=== PATIENT | male | born 1965 | race Caucasian/White ===

== ENCOUNTER 2020-10-25 14:07 | Emergency (ER) | payer OTHER, SELFPAY ==
--- NOTE | ~2020-10-25 | XR_ITS ---
EXAMINATION: XR chest 1V portable DATE: 10/25/2020 16:49 INDICATION: Weakness TECHNIQUE: frontal view of the chest was obtained. COMPARISON: Chest radiograph dated 03/17/2014 FINDINGS: Hyperexpansion of the lungs no focal airspace opacities, pulmonary edema, pleural effusion or pneumot horax. The cardiomediastinal silhouette is normal. Mild thoracic dextrocurvature with mild spondylosi s. IMPRESSION: 1. Chronic hyperexpansion of lungs. No acute cardiopulmonary disease. Reviewed, dictated and finalized at location A.
[2020-10-25 14:27] VITALS: BP 98/70; PULSE 98; RESP 16; TEMP 37; O2SAT 100
--- NOTE | 2020-10-25 15:53 | ED.GENADULT ---
HPI - General Adult General Chief complaint: Unspecified <Dion Starr MD - Last Filed: 11/02/20 02:04> Stated complaint: WEAKNESS <Dion Starr MD - Last Filed: 11/02/20 02:04> Time Seen by Provider: 10/25/20 14:11 <Dion Starr MD - Last Filed: 11/02/20 02:04> History of Present Illness HPI narrative: Patient is a 55-year-old male who presents ER with bedbugs. Patient's sister called for a wellness check on him and his parents since his mom was admitted recently and also covered in bedbugs. They made the request that he be transferred to the ER. Patient is alert and oriented x3. He has no complaints of pain. He is aware that there iare some bedbugs. He is very thin but denies any recent weight loss. <Dion Starr MD - Last Filed: 11/02/20 02:04> Related Data Allergies/adverse reactions: Allergies Allergy/AdvReac Type Severity Reaction Status Date / Time Penicillins Allergy Unknown Verified 07/17/16 08:37 <Dion Starr MD - Last Filed: 11/02/20 02:04> Review of Systems Review of Systems: All systems reviewed & are unremarkable except as noted in HPI and below <Dion Starr MD - Last Filed: 11/02/20 02:04> Constitutional: Constitutional: Reports anorexia, Denies chills and Denies fever(s) <Dion Starr MD - Last Filed: 11/02/20 02:04> Cardiovascular: Cardiovascular: Denies chest pain, Denies diaphoresis, Denies rapid heart rate and Denies radiating jaw, neck or arm pain <Dion Starr MD - Last Filed: 11/02/20 02:04> Respiratory: Respiratory: Denies chest congestion, Denies cough and Denies dyspnea <Dion Starr MD - Last Filed: 11/02/20 02:04> Gastrointestinal: Gastrointestinal: Denies abdominal pain, Denies diarrhea, Denies nausea and Denies vomiting <Dion Starr MD - Last Filed: 11/02/20 02:04> Integumentary/Breasts: Skin/Breast: Denies erythema and Denies rash <Dion Starr MD - Last Filed: 11/02/20 02:04> Comments: Itching and bug bites. <Dion Starr MD - Last Filed: 11/02/20 02:04> [facility] Past Medical History Medical History: Medical History (Updated 10/26/20 @ 00:00 by Background Gabriel) Anxiety Hemorrhoids Seizure disorder <Dion Starr MD - Last Filed: 11/02/20 02:04> Surgical History Surgical History: Surgical History (Updated 10/25/20 @ 16:16 by Dion Starr MD) History of cholecystectomy <Dion Starr MD - Last Filed: 11/02/20 02:04> Social History Social History: Social History Smoking status: Former smoker Smoking end date: 03/19/15 Alcohol intake: current <Dion Starr MD - Last Filed: 11/02/20 02:04> Exam Narrative: GENERAL: Chronically ill-appearing and underweight, no acute distress. HEAD: Normocephalic, atraumatic. EYES: PERRL and EOMI. ENT: Mucous membranes moist. CHEST: Clear to auscultation. No respiratory distress. HEART: Regular rate and rhythm. Normal peripheral pulses. ABDOMEN: Soft, nontender, nondistended. EXTREMITIES: Normal range of motion. No edema. SKIN: Warm, dry, no rash. NEURO: Alert and oriented x3. <Dion Starr MD - Last Filed: 11/02/20 02:04> Course Reevaluation(s) Reevaluation #1: Currently patient is asymptomatic and would like to go home. his ride waiting for him. <Pal Finn MD - Last Filed: 10/25/20 18:39> Date: 10/25/20 <Pal Finn MD - Last Filed: 10/25/20 18:39> Time: 18:35 <Pal Finn MD - Last Filed: 10/25/20 18:39> Vital Signs Vital signs: Vital Signs Temperature 98.6 F 10/25/20 14:27 Pulse Rate 98 10/25/20 14:27 Respiratory Rate 16 10/25/20 14:27 Blood Pressure 98/70 L 10/25/20 14:27 Pulse Oximetry 100 10/25/20 14:27 Temperature 98.6 F 10/25/20 14:27 Pulse Rate 92 10/25/20 18:46 Respiratory Rate 18 10/25/20 18:46 Blood Pressure 107/72 10/25/20 18:46 Pulse Oximetry 100 10/25/20 18:46 <Ernie
[2020-10-25 16:17] VITALS: BP 105/76; PULSE 89; O2SAT 100
[2020-10-25 17:07] LABS: Basophils Percent Auto 1.5 % (0.2-1.2); Eosinophils Absolute Auto 0.3 K/mm3 (0-0.3); Eosinophils Percent Auto 9.4 % (0-4.4); Hematocrit 40.5 % (42.0-52.0); Hemoglobin 13.5 g/dL (14.0-18.0); Immature Granulocyte Absolute 0.01 K/mm3 (0.00-0.031); Immature Granulocyte Percent A 0.4 % (0-0.5); Lymphocytes Absolute Auto 1.03 K/mm3 (0.9-3.2); Lymphocytes Percent Auto 38.6 % (18.3-44.2); Mean Corpuscular HGB Conc 33.3 g/dl (32-36); Mean Corpuscular Hemoglobin 30.8 pg (26-34); Mean Corpuscular Volume 92.5 fl (80-100); Monocytes Absolute Auto 0.4 K/mm3 (0.1-0.6); Monocytes Percent Auto 13.1 % (2.6-8.5); Platelet Count Result 290 k/mm3 (150-375); Red Blood Count 4.38 M/mm3 (4.6-6.20); Red Cell Distribution Width 13.3 % (11.5-14.5); White Blood Count 2.7 K/mm3 (4.5-10.0)
[2020-10-25 17:21] LABS: Alanine Aminotransferase 9 U/L (4-50); Albumin Level 4.7 g/dL (3.5-5.1); Alkaline Phosphatase 69 U/L (38-126); Anion Gap 11 mmol/L (8-16); Aspartate Amino Transferase 24 U/L (17-59); Bilirubin,Total 0.1 mg/dL (0.2-1.3); Blood Urea Nitrogen 12 mg/dL (9-20); Calcium 9.5 mg/dL (8.4-10.2); Carbon Dioxide 26 mmol/L (22-30); Chloride 100 mmol/L (98-107); Estimated CRCL calculation 48 ml/min; Estimated Glomerular Filt Rate > 60; Glucose 83 mg/dL (65-110); Potassium 3.7 mmol/L (3.4-5.0); Sodium 137 mmol/L (137-145)
[2020-10-25 17:59] LABS: Add Urine Microscopic? YES; Appearance Urine Clear (Clear); Bilirubin Urine Negative (Negative); Blood Urine Negative (Negative); Color Urine Yellow (Yellow); Glucose Urine UA Negative (Negative); Ketones Urine Trace mg/dL (Negative); Leukocyte Esterase Ur Negative LEU/UL (Negative); Mucus Urine Heavy /lpf; Nitrate Urine Negative (Negative); Protein Urine 1+ mg/dL (Negative); RBC Urine 0-2 /hpf (0-2); Urobilinogen Urine Negative mg/dL (<2.0); WBC Urine 0-3 /hpf
[2020-10-25 18:46] VITALS: BP 107/72; PULSE 92; RESP 18; O2SAT 100
== END 2020-10-25 18:47 | disposition home or self-care (01) ==
PROVIDERS: Emergency Medicine; Emergency Provider Emergency Medicine; PCP Internal Medicine Infectious Disease
DX: B88.8 Other specified infestations (principal); E46 Unspecified protein-calorie malnutrition; D72.819 Decreased white blood cell count, unspecified; Z87.891 Personal history of nicotine dependence
CPT/HCPCS: 36415; 71045; 80053; 81001; 85025; 99283

== ENCOUNTER 2021-02-18 13:21 | Emergency (ER) | payer OTHER, SELFPAY ==
--- NOTE | ~2021-02-18 | CT_ITS ---
EXAMINATION: CT abdomen pelvis w con DATE: 02/18/2021 18:00 INDICATION: Abdomen pain TECHNIQUE: Computed tomography (CT) of the abdomen and pelvis was performed with 91 cc Omnipaque 350 intravenous contrast. The dose-length product was 155.03 mGy-cm. Automated exposure control and itera tive reconstruction technique were employed. COMPARISON: CT dated 05/23/2018. FINDINGS: Lung bases unremarkable. Heart size normal. No significant pleural or pericardial effusion. There is a small low-density lesion in the right hepatic lobe, most likely benign cysts. Small hiata l hernia with thickening of the distal esophagus. There is moderate gas and fluid throughout the smal l bowel, suspicious for enteritis or ileus. Colonic diverticulosis without evidence for diverticuliti s. No free air or free fluid. The spleen, pancreas, right adrenal gland and kidneys are unremarkable. There is a low-density 2 cm l eft adrenal mass, likely benign adenoma. No significant vascular abnormality. No lymphadenopathy. No free air or free fluid. Mild lumbar spondylosis. Symmetric degenerative changes of the hips. Mild lev ocurvature of the lumbar spine. IMPRESSION: 1. Moderate gas and fluid throughout the small bowel without transition point, most likely secondary to enteritis or ileus. 2: Small hiatal hernia with thickening of the distal esophagus, suspicious for esophagitis. Reviewed, dictated and finalized at location A. [employer]
[2021-02-18 13:24] VITALS: BP 119/82; PULSE 113; RESP 20; TEMP 36.6; O2SAT 99
[2021-02-18 15:25] VITALS: BP 107/79; PULSE 103; RESP 16; TEMP 36.4; O2SAT 99
[2021-02-18 16:57] VITALS: BP 105/77; PULSE 93; RESP 18; O2SAT 100
[2021-02-18 17:01] LABS: Basophils Absolute Auto 0.1 K/mm3 (0.0-0.1); Basophils Percent Auto 1.3 % (0.2-1.2); Eosinophils Absolute Auto 0.1 K/mm3 (0-0.3); Eosinophils Percent Auto 0.9 % (0-4.4); Hematocrit 41.2 % (42.0-52.0); Hemoglobin 14.1 g/dL (14.0-18.0); Immature Granulocyte Absolute 0.01 K/mm3 (0.00-0.031); Immature Granulocyte Percent A 0.2 % (0-0.5); Lymphocytes Absolute Auto 1.71 K/mm3 (0.9-3.2); Mean Corpuscular HGB Conc 34.2 g/dl (32-36); Mean Corpuscular Hemoglobin 30.7 pg (26-34); Mean Corpuscular Volume 89.6 fl (80-100); Mean Platelet Volume 7.6 fl (7.4-10.4); Monocytes Absolute Auto 0.4 K/mm3 (0.1-0.6); Neutrophils Absolute Auto 3.2 K/mm3 (1.3-6.7); Neutrophils Percent Auto 58.6 % (45.5-73.1); Platelet Count Result 381 k/mm3 (150-375); Red Cell Distribution Width 14.7 % (11.5-14.5); White Blood Count 5.5 K/mm3 (4.5-10.0)
[2021-02-18] MEDS: SODIUM CHLORIDE 0.9% IV 1,000 ML 999 ML IV CONT (17:09)
[2021-02-18 17:18] LABS: Alanine Aminotransferase 11 U/L (4-50); Albumin Level 4.4 g/dL (3.5-5.1); Alkaline Phosphatase 49 U/L (38-126); Anion Gap 10 mmol/L (8-16); Aspartate Amino Transferase 22 U/L (17-59); Bilirubin,Total 0.5 mg/dL (0.2-1.3); Blood Urea Nitrogen 12 mg/dL (9-20); Calcium 9.2 mg/dL (8.4-10.2); Carbon Dioxide 25 mmol/L (22-30); Chloride 101 mmol/L (98-107); Estimated CRCL calculation 59 ml/min; Estimated Glomerular Filt Rate > 60; Glucose 98 mg/dL (65-110); Lipase 91 U/L (23-300); Potassium 3.9 mmol/L (3.4-5.0); Sodium 136 mmol/L (137-145)
--- NOTE | 2021-02-18 17:38 | ED.ABDPAIN ---
HPI - Abdominal Pain General Chief Complaint: Abdominal Pain Stated Complaint: sob x 2 days Time Seen by Provider: 02/18/21 16:34 Source: patient and RN notes reviewed Mode of arrival: ambulatory History of Present Illness HPI narrative: Patient is 55 years old white male came to the emergency room by private car, he lives with his mother and brother, does not work, is not disabled, complaining of pain of the feet, legs, hips, kidneys, bladder, stomach, groin area and lungs for years. No family physician. Patient take Tylenol as needed for pain. Patient is a smoker, does not drink or uses drugs, is fully vaccinated for COVID-19 Related Data Home Medications Medication Instructions Recorded Confirmed acetaminophen [Tylenol] 325 mg PO ONCE PRN 02/18/21 02/18/21 albuterol sulfate 90 mcg INHALATION PRN 02/18/21 02/18/21 dicyclomine 20 mg PO PRN 02/18/21 02/18/21 Allergies Allergy/AdvReac Type Severity Reaction Status Date / Time Penicillins Allergy Unknown Unknown Verified 02/18/21 17:00 Review of Systems Review of Systems: CONSTITUTIONAL: Denies fever, chills, or sweats. EYES: Denies visual changes, redness, or discharge. ENT: Denies rhinorrhea, congestion, sore throat, or otalgia. CARDIOVASCULAR: Denies chest pain, palpitations, or edema. RESPIRATORY: Denies cough or dyspnea. GASTROINTESTINAL: Denies abdominal pain, nausea, vomiting, or diarrhea. GENITOURINARY: Denies dysuria or hematuria. SKIN: Denies rash or itching. MUSCULOSKELETAL: Aches and pain all over NEUROLOGIC: Denies headache, numbness, or weakness. PSYCHIATRIC: Depression PMFSH Past Medical History Medical History Anxiety Hemorrhoids Seizure disorder Surgical History Surgical History History of cholecystectomy Social History Social History Smoking status: Former smoker Smoking end date: 03/19/15 Alcohol intake: current Exam Narrative: General appearance: Well-developed, malnourished Skin: Eczematous changes of the forearms bilaterally Head: Normocephalic, nontraumatic Eyes: Clear conjunctiva ENT: Oropharynx normal, ears normal, nose normal Neck: Supple, nontender Chest and respiratory: Airway patent, no respiratory distress, no accessory muscle use Heart: Regular rate/rhythm Abdomen: Diffuse tenderness, guarding, quiet bowel sounds Vascular: Normal peripheral pulses, normal capillary refill. 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 Labs, CT abdomen pelvis with IV contrast, IV fluid.. Differential Diagnosis Differential diagnosis: Likely abdominal pain, acute appendicitis, calculus of kidney, constipation, diverticulitis, pancreatitis and other (Depression, electrolyte imbalance,) Lab Data Result diagrams: 02/18/21 16:55 02/18/21 16:56 Labs: Lab Results 02/18/21 02/18/21 02/18/21 Dm
[2021-02-18 17:49] LABS: Add Urine Microscopic? YES; Appearance Urine Clear (Clear); Bilirubin Urine 1+ (Negative); Blood Urine 1+ (Negative); Color Urine Amber (Yellow); Glucose Urine UA Negative (Negative); Ketones Urine Trace mg/dL (Negative); Leukocyte Esterase Ur Negative LEU/UL (Negative); Mucus Urine Heavy /lpf; Nitrate Urine Negative (Negative); Protein Urine 1+ mg/dL (Negative); RBC Urine 21-50 /hpf (0-2); WBC Urine 0-3 /hpf
[2021-02-18 17:57] LABS: Specific Grav Ur 1.045 (1.001-1.035)
[2021-02-18 18:57] VITALS: BP 112/69; PULSE 92; RESP 18; O2SAT 100
== END 2021-02-18 19:00 | disposition home or self-care (01) ==
PROVIDERS: Emergency Provider Emergency Medicine; PCP Internal Medicine
DX: R52 Pain, unspecified (principal); K20.90 Esophagitis, unspecified without bleeding; K52.9 Noninfective gastroenteritis and colitis, unspecified; F41.9 Anxiety disorder, unspecified; G40.909 Epilepsy, unspecified, not intractable, without status epilepticus; E46 Unspecified protein-calorie malnutrition; Z68.1 Body mass index [BMI] 19.9 or less, adult; Z87.891 Personal history of nicotine dependence; Z79.899 Other long term (current) drug therapy; Z88.0 Allergy status to penicillin
CPT/HCPCS: 36415; 51701; 74177; 80053; 81001; 83690; 85025; 96360; 99284; J7030; Q9967

== ENCOUNTER 2022-12-21 10:10 | Emergency (ER) | payer OTHER, SELFPAY ==
[2022-12-21] VITALS (13 sets, daily range): BP systolic 116–121; BP diastolic 80–88; PULSE 62–79; RESP 11–25; TEMP 36.7; O2SAT 97–99
--- NOTE | ~2022-12-21 | US_ITS ---
EXAMINATION: US right upper quadrant DATE: 12/21/2022 14:20 INDICATION: Abdominal pain TECHNIQUE: Multiple grayscale and Doppler ultrasound images of the abdomen were obtained. COMPARISON: CT dated 12/21/2022 FINDINGS: Main pancreatic duct is diffusely dilated measuring 4.5 cm diameter at the body of the pancreas. Panc reas is otherwise normal in appearance. Liver has normal echogenicity and contour, with a smooth surf pavel. No liver lesion identified. Diffuse mild intrahepatic third ductal dilation. Portal venous flow was seen in the hepatopetal, normal direction and has normal Doppler waveform. The common bile duct i s also dilated to 8 mm. There is tapering of the distal common bile duct however the region of the am emiliano is obscured by shadowing bowel gas. No evident choledocholithiasis. Status post cholecystectomy with surgical clips seen at the gallbladder fossa on the prior CT. Visualized proximal to mid inferi or vena cava is normal. IMPRESSION: 1. Status post cholecystectomy with mild intra and extra hepatic ductal or ductal dilation and mild d ilation of the main pancreatic duct with no evident choledocholithiasis. Reviewed, dictated and finalized at location A. IMPRESSION: 1. Status post cholecystectomy with mild intra and extra hepatic ductal or duct al dilation and mild dilation of the main pancreatic duct with no evident haider docholithiasis.
--- NOTE | ~2022-12-21 | CT_ITS ---
EXAMINATION: CT abdomen pelvis w con DATE: 12/21/2022 11:44 INDICATION: Right lower quadrant abdominal pain and suprapubic pain. TECHNIQUE: Computed tomography (CT) of the abdomen and pelvis was performed with 100 mL Omnipaque-350 intravenous contrast. Automated exposure control and iterative reconstruction technique were employe d. The dose-length product was 197.98 mGy-cm. COMPARISON: 02/18/2021 and 12/11/2014 FINDINGS: Mild dependent atelectasis in bilateral lower lobes. Heart size is normal. No pericardial or pleural effusion. Small sliding-type hiatal hernia. 6 mm cyst in the right hepatic lobe. 11 mm more ill-defin ed hypodense/hypoenhancing lesion in the left hepatic lobe, unchanged since 12/11/2014 at which time i t demonstrated small amount of peripheral puddling of contrast most consistent with a hemangioma. The re is mild intra and extrahepatic biliary ductal dilation and dilation of the main pancreatic duct wh ich may be related to prior cholecystectomy with surgical clips at the gallbladder fossa but which is new since the prior study. No evident obstructing stone or mass identified. Pancreas otherwise flakita l in appearance. Spleen and bilateral adrenal glands are normal. 2.0 cm left adrenal nodule and 1.0 c m right adrenal nodule which are unchanged since 2014 and with signal dropout on opposed phase images on MRI dated 12/31/2018 consistent with adenomas. Bladder is normal. Scattered colonic diverticulosi s without adjacent inflammatory change to suggest diverticulitis. No bowel obstruction. No free intra peritoneal gas or fluid. No pathologically enlarged abdominal or pelvic lymphadenopathy. Incidental n ormal variant retroaortic left renal vein. Unilateral left L5 pars interarticularis defect. Severe fa cet osteoarthritis on the right at L5-S1. Additional mild scattered degenerative skeletal changes in the pelvis and visualized spine. IMPRESSION: 1. New mild intra and extra hepatic ductal or ductal dilation as well as mild dilation of the main pa ncreatic duct without evident obstructing stone or mass and which could be related to prior cholecyst ectomy. Given however the interval change would correlate with liver function tests and could conside r further evaluation with MRCP as clinically indicated. 2. Small sliding-type hiatal hernia. Reviewed, dictated and finalized at location A. IMPRESSION: 1. New mild intra and extra hepatic ductal or ductal dilation as well as mild d ilation of the main pancreatic duct without evident obstructing stone or mass a nd which could be related to prior cholecystectomy. Given however the interval change would correlate with liver function tests and could consider further soraya luation with MRCP as clinically indicated. 2. Small sliding-type hiatal hernia.
--- NOTE | ~2022-12-21 | XR_ITS ---
EXAMINATION: XR chest 1V portable INDICATION: Cough TECHNIQUE: Portable AP chest at 1120 hours COMPARISON: 10/25/2020 FINDINGS: The lungs are free of acute opacities. No pleural effusion or pneumothorax. The cardiomedia stinal silhouette is normal. IMPRESSION: 1. No acute cardiopulmonary abnormality. Reviewed, dictated and finalized at location A.
--- NOTE | 2022-12-21 10:16 | ECG_ITS ---
Measurements Intervals [place] Rate: 74 P: 73 OR: 124 QRS: 77 QRSD: 89 T: 72 QT: 379 QTc: 422 Interpretive Statements SINUS RHYTHM NONSPECIFIC T-WAVE ABNORMALITY NO PREVIOUS ECG AVAILABLE FOR COMPARISON Electronically Signed On 12-21-2022 12:47:16 CDT by Ольга Vigil M.D.
[2022-12-21 10:34] LABS: Basophils Absolute Auto 0.1 K/mm3 (0.0-0.1); Basophils Percent Auto 1.9 % (0.2-1.2); Eosinophils Absolute Auto 0.2 K/mm3 (0-0.3); Eosinophils Percent Auto 3.7 % (0-4.4); Hematocrit 42.1 % (42.0-52.0); Hemoglobin 13.1 g/dL (14.0-18.0); Immature Granulocyte Absolute 0.02 K/mm3 (0.00-0.031); Immature Granulocyte Percent A 0.4 % (0-0.5); Lymphocytes Absolute Auto 1.46 K/mm3 (0.9-3.2); Lymphocytes Percent Auto 28.1 % (18.3-44.2); Mean Corpuscular HGB Conc 31.1 g/dl (32-36); Mean Corpuscular Volume 93.1 fl (80-100); Mean Platelet Volume 8.5 fl (7.4-10.4); Monocytes Absolute Auto 0.5 K/mm3 (0.1-0.6); Monocytes Percent Auto 9.4 % (2.6-8.5); Neutrophils Absolute Auto 2.9 K/mm3 (1.3-6.7); Neutrophils Percent Auto 56.5 % (45.5-73.1); Platelet Count Result 265 k/mm3 (150-375); Red Blood Count 4.52 M/mm3 (4.6-6.20); Red Cell Distribution Width 14.8 % (11.5-14.5); White Blood Count 5.2 K/mm3 (4.5-10.0)
[2022-12-21 10:41] LABS: Appearance Urine Cloudy (Clear); Bacteria Urine None Seen /hpf; Bilirubin Urine Negative (Negative); Blood Urine Negative (Negative); Color Urine Yellow (Yellow); Glucose Urine UA Negative (Negative); Ketones Urine Negative (Negative); Leukocyte Esterase Ur Negative LEU/UL (Negative); Nitrate Urine Negative (Negative); Non Pathogenic Casts 0-2; Protein Urine Negative (Negative); RBC Urine 0-2 /hpf (0-2); Specific Grav Ur 1.012 (1.001-1.035); Squamous Epithelial Cell Urine None seen /hpf (Few); Urobilinogen Urine 0.2 mg/dL (<2.0); WBC Urine 0-5 /hpf; pH Urine 7.5 (5.0-9.0)
[2022-12-21 10:44] LABS: Add Urine Microscopic? YES
[2022-12-21 10:44] LABS: Alanine Aminotransferase 11 U/L (6-50); Albumin Level 3.9 g/dL (3.5-5.1); Alkaline Phosphatase 56 U/L (38-126); Anion Gap 4 mmol/L (8-16); Aspartate Amino Transferase 19 U/L (17-59); Bilirubin,Total 0.4 mg/dL (0.2-1.3); Blood Urea Nitrogen 8 mg/dL (9-20); Calcium 8.7 mg/dL (8.4-10.2); Carbon Dioxide 31 mmol/L (22-30); Chloride 103 mmol/L (98-107); Estimated CRCL calculation 53 ml/min; Estimated Glomerular Filt Rate > 60; Glucose 123 mg/dL (65-110); Lipase 87 U/L (23-300); Potassium 4.1 mmol/L (3.4-5.0); Sodium 138 mmol/L (137-145)
--- NOTE | 2022-12-21 11:15 | ED.ABDPAIN ---
HPI - Abdominal Pain General Chief Complaint: Abdominal Pain <REYNALDO Calderón Last Filed: 12/21/22 16:13> Stated Complaint: abd pain <REYNALDO Calderón Last Filed: 12/21/22 16:13> Time Seen by Provider: 12/21/22 10:29 <REYNALDO Calderón Last Filed: 12/21/22 16:13> History of Present Illness HPI narrative: 57-year-old male with a history of cholecystectomy reports for evaluation for right-sided lower quadrant abdominal pain and flank pain for a couple weeks. Patient currently lives at [facility]. He describes the pain as a dull achy pain with associated nausea and gagging , he denies emesis. He had a bowel movement last night that was normal, however is reporting intermittent soft stools since the onset of symptoms. He denies melena or hematochezia. He does report an intermittent nonproductive cough, body aches and chills as well. He denies chest pain or shortness of breath, congestion, sore throat, dysuria, melena, hematochezia, coffee ground emesis, hemoptysis. He does report urinary frequency and urgency since the onset of symptoms. States he believes the retirement said he had a fever this morning. <REYNALDO Calderón Last Filed: 12/21/22 16:13> Related Data Home Medications: Home Medications Medication Instructions Recorded Confirmed acetaminophen 325 mg capsule 325 mg PO ONCE PRN Pain 02/18/21 02/18/21 (Tylenol) albuterol sulfate 90 mcg/actuation 90 mcg inhalation PRN wheezing 02/18/21 02/18/21 aerosol inhaler dicyclomine 20 mg tablet 20 mg PO PRN stomach cramps 02/18/21 02/18/21 <REYNALDO Calderón Last Filed: 12/21/22 16:13> Allergies/Adverse Reactions: Allergies Allergy/AdvReac Type Severity Reaction Status Date / Time Penicillins Allergy Unknown Unknown Verified 02/18/21 17:00 <REYNALDO Calderón Last Filed: 12/21/22 16:13> Review of Systems Review of Systems: CONSTITUTIONAL: See HPI EYES: Denies visual changes, redness, or discharge. ENT: Denies rhinorrhea, congestion, sore throat, or otalgia. CARDIOVASCULAR: Denies chest pain, palpitations, or edema. RESPIRATORY: See HPI GASTROINTESTINAL: See HPI GENITOURINARY: Denies dysuria or hematuria. SKIN: Denies rash or itching. MUSCULOSKELETAL: See HPI NEUROLOGIC: Denies headache, numbness, dizziness, or weakness. PSYCHIATRIC: Denies anxiety or depression. <Magdalena Barker PA-C - Last Filed: 12/21/22 16:13> [facility] Past Medical History Medical History: Medical History Anxiety Hemorrhoids Seizure disorder <Magdalena Barker PA-C - Last Filed: 12/21/22 16:13> Surgical History Surgical History: Surgical History History of cholecystectomy <Magdalena Barker PA-C - Last Filed: 12/21/22 16:13> Social History Social History: Social History Smoking status: Former smoker Smoking end date: 03/19/15 Alcohol intake: current <Magdalena Barker PA-C - Last Filed: 12/21/22 16:13> Exam Narrative: GENERAL: Well-appearing, thin, in no acute distress. Patient resting comfortably in exam bed. He is pleasant and conversational. HEAD: Normocephalic EYES: PERRLA ENT: Nares clear. Mucous membranes moist. Oropharynx without tonsillar hypertrophy exudate or other lesions. Edentulous NECK: Supple. CHEST: No respiratory distress. Clear to auscultation, no adventitious breath sounds. HEART: Regular rate and rhythm. No murmur heard. Normal peripheral pulses. ABDOMEN: Soft, normal active bowel sounds. Tenderness in the left upper quadrant, right lower quadrant and suprapubic region with voluntary guarding. No rebound or rigidity. Negative Geller's. Right CVA tenderness. No overlying skin changes. : No scrotal edema, penile or scrotal lesions. No crepitus in the perineu
[2022-12-21] MEDS: ONDANSETRON INJ 4 MG/2 ML VIAL IV PUSH ×2 (11:16→13:41)
[2022-12-21] MEDS: SODIUM CHLORIDE 0.9% IV 1,000 ML 999 ML IV CONT (11:16)
[2022-12-21 12:45] LABS: Influenza A QL RT-PCR Negative (Negative); Influenza B QL RT-PCR Negative (Negative); SARS-CoV-2 RNA PCR Negative (Negative)
[2022-12-21] MEDS: KETOROLAC 30 MG/ML VIAL (*BKC) IV PUSH (13:32)
== END 2022-12-21 16:20 ==
PROVIDERS: Preventive Medicine Aerospace Medicine; Emergency Provider Physician Assistant; PCP Internal Medicine
DX: R10.31 Right lower quadrant pain (principal); Z20.822 Contact with and (suspected) exposure to COVID-19; G40.909 Epilepsy, unspecified, not intractable, without status epilepticus; Z87.891 Personal history of nicotine dependence; Z90.49 Acquired absence of other specified parts of digestive tract; R94.31 Abnormal electrocardiogram [ECG] [EKG]; K44.9 Diaphragmatic hernia without obstruction or gangrene
CPT/HCPCS: 36415; 71045; 74177; 76705; 80053; 81001; 83690; 85025; 87636; 93005; 96361; 96374; 96375; 99284; J1885; J2405; J7030; Q9967

== ENCOUNTER 2023-01-10 15:14 | Observation (INO) | payer OTHER, SELFPAY ==
[2023-01-10] VITALS (16 sets, daily range): BP systolic 107–134; BP diastolic 60–75; PULSE 82–130; RESP 13–24; TEMP 36.8–37.6; O2SAT 88–97; BMI 15.2
--- NOTE | ~2023-01-10 | XR_ITS ---
XR chest 1V portable DATE: 01/10/2023 15:55 INDICATION: Shortness of breath, weakness TECHNIQUE: Portable AP chest on 01/10/2023 at 1549 hours COMPARISON: 12/21/2022 portable AP chest FINDINGS: There are patchy consolidating infiltrates in both lower lobes. Bilateral hyperinflation and relative flattening the diaphragm suggesting COPD. Heart size is within normal range. IMPRESSION: Patchy consolidating bilateral lower lobe infiltrates Reviewed, dictated and finalized at location A.
--- NOTE | 2023-01-10 15:21 | ECG_ITS ---
Measurements Intervals [place] Rate: 127 P: 76 CO: 123 QRS: 78 QRSD: 86 T: 57 QT: 255 QTc: 372 Interpretive Statements SINUS TACHYCARDIA POOR R-WAVE PROGRESSION CANNOT RULE OUT AN OLD SEPTAL [facility] COMPARED TO ECG 12/21/2022 10:37:04 SINUS TACHYCARDIA NOW PRESENT Electronically Signed On 01-10-2023 20:34:02 CDT by Ashleigh Wood M.D.
--- NOTE | 2023-01-10 15:22 | ED.GENADULT ---
HPI - General Adult General Chief complaint: Shortness of Breath/Dyspnea Stated complaint: resp distress History of Present Illness HPI narrative: 57-year-old male presented emergency department for evaluation increased respiratory distress. Patient resides at a local residential. Patient is comfort care. Patient is normally on oxygen at the care facility but is unknown how much he is on. Upon arrival to the ED patient was saturating at mid 90s on room air. Patient was placed on 2 L of oxygen for comfort. Patient denies any other complaints at this time. Related Data Home Medications Medication Instructions Recorded Confirmed acetaminophen 325 mg capsule 325 mg PO ONCE PRN Pain 02/18/21 02/18/21 (Tylenol) albuterol sulfate 90 mcg/actuation 90 mcg inhalation PRN wheezing 02/18/21 02/18/21 aerosol inhaler dicyclomine 20 mg tablet 20 mg PO PRN stomach cramps 02/18/21 02/18/21 Allergies Allergy/AdvReac Type Severity Reaction Status Date / Time Penicillins Allergy Unknown Unknown Verified 02/18/21 17:00 Review of Systems Review of Systems: All systems reviewed & are unremarkable except as noted in HPI and below PMFSH Past Medical History Medical History Anxiety Hemorrhoids Seizure disorder Surgical History Surgical History History of cholecystectomy Social History Social History Smoking status: Former smoker Smoking end date: 03/19/15 Alcohol intake: current Exam Narrative: APPEARANCE: Cachectic appearing HEAD: normocephalic, atraumatic. EYES: PERRLA/EOMI, conjunctivae clear. NOSE: Normal no drainage EARS:TMS clear with good light reflex. THROAT: Pharynx clear, no exudate. NECK: Supple. No adenopathy, no masses. RESPIRATORY: Coarse lung sounds bilaterally CARDIOVASCULAR: Regular rate and rhythm without murmurs rubs or gallops. ABDOMINAL: Soft, nontender, nondistended, normal bowel sounds MUSCULOSKELETAL: Moves all extremities. Strength/ROM intact, No edema, No calf tenderness. NEURO: Alert. Cranial nerves II through XII intact. Grossly intact Course Course Emergency Course: 57-year-old male present emergency department for evaluation of increased respiratory distress. After breathing treatment patient was saturating at 95% on 4 L. Patient is afebrile with no leukocytosis and a hemoglobin of 13.1. ABG showed some low O2 saturation. CMP showed no significant abnormalities. Urine showed some hematuria. Patient was negative for influenza RSV and for COVID. Chest x-ray was concerning for pneumonia. Patient was started on antibiotics for suspected pneumonia and patient was accepted for admission for possible COPD exacerbation versus pneumonia. Case was discussed with the hospitalist. Patient was updated on the plan for admission. All questions and concerns were addressed. Vital Signs Vital signs: Vital Signs Temperature 98.3 F 01/10/23 15:20 Pulse Rate 130 H 01/10/23 15:20 Respiratory Rate 24 H 01/10/23 15:20 Blood Pressure 107/69 01/10/23 15:20 Pulse Oximetry 88 L 01/10/23 15:20 Oxygen Delivery Nasal Cannula 01/10/23 15:20 Oxygen Flow Rate 2 01/10/23 15:20 Temperature 98.3 F 01/10/23 15:20 Pulse Rate 100 01/10/23 21:26 Respiratory Rate 15 01/10/23 21:26 Blood Pressure 109/67 01/10/23 21:26 Pulse Oximetry 95 01/10/23 21:26 Oxygen Delivery Nasal Cannula 01/10/23 16:59 Oxygen Flow Rate 4 01/10/23 16:59 Medical Decision Making Differential Diagnosis Differential Diagnosis: Pneumonia, COPD, influenza, COVID, CHF Vital Signs Vital Signs: Vital Signs Temperature 98.3 F 01/10/23 15:20 Pulse Rate 130 H 01/10/23 15:20 Respiratory Rate 24 H 01/10/23 15:20 Blood Pressure 107/69 01/10/23 15:20 Pulse Oximetry 88 L 01/10/23 15:20 Oxygen Delivery
[2023-01-10 15:30] LABS: Alveolar/Arterial O2 Gradient 109.1 mmHg; Base Excess ABG -0.7 mEq/l (+/-2.0); Carboxyhemoglobin 2.3 % THb (0-2.0); Fractional Inspired Oxygen 28 %; HCO3 ABG 22.7 mEq/l (22.0-26.0); Methemoglobin ABG 0.3 %THb (0-1.5); Oxygen Content ABG 16.4 %vol (16.0-22.0); PCO2 ABG 33.5 mmHg (35.0-45.0); PO2 FiO2 Ratio Arterial Blood 1.82 %; Reduced Hemoglobin 12.9 %THb (0-5.0); Total Hemoglobin 13.8 g/dL (12.0-18.0); pH ABG 7.448 (7.350-7.450)
[2023-01-10 15:31] LABS: Device NASAL CANNULA; Modified Allen's Test Pass; Oxyhemoglobin 84.5 % THb (90.0-100.0); Site Drawn RIGHT RADIAL
[2023-01-10] MEDS: ALBUTEROL SULFATE NEB 2.5 MG/3 ML INH INHALATION ×2 (15:33→20:12)
[2023-01-10] MEDS: SODIUM CHLORIDE 0.9% IV 1,000 ML 999 ML IV CONT (15:49)
[2023-01-10 15:53] LABS: Basophils Percent Auto 0.2 % (0.2-1.2); Hematocrit 41.4 % (42.0-52.0); Hemoglobin 13.1 g/dL (14.0-18.0); Immature Granulocyte Absolute 0.04 K/mm3 (0.00-0.031); Immature Granulocyte Percent A 0.5 % (0-0.5); Lymphocytes Absolute Auto 0.69 K/mm3 (0.9-3.2); Lymphocytes Percent Auto 8.4 % (18.3-44.2); Mean Corpuscular HGB Conc 31.6 g/dl (32-36); Mean Corpuscular Hemoglobin 28.1 pg (26-34); Mean Corpuscular Volume 88.8 fl (80-100); Mean Platelet Volume 8.9 fl (7.4-10.4); Monocytes Percent Auto 11.8 % (2.6-8.5); Neutrophils Absolute Auto 6.5 K/mm3 (1.3-6.7); Neutrophils Percent Auto 79.1 % (45.5-73.1); Platelet Count Result 313 k/mm3 (150-375); Red Blood Count 4.66 M/mm3 (4.6-6.20); Red Cell Distribution Width 14.7 % (11.5-14.5); White Blood Count 8.2 K/mm3 (4.5-10.0)
[2023-01-10 16:04] LABS: INR 1.1; Partial Thromboplastin Time 32.8 SECONDS (22.3-36.8); Prothrombin Time 14.2 Seconds (11.1-14.7)
[2023-01-10 16:31] LABS: Influenza A QL RT-PCR Negative (Negative); Influenza B QL RT-PCR Negative (Negative); RSV RNA, RT-PCR Negative (Negative); SARS-CoV-2 RNA PCR Negative (Negative)
[2023-01-10] MEDS: levoFLOXacin 750 MG/D5W 150 ML 750 MG/150 ML BAG 100 MG IVPB (16:58)
[2023-01-10 17:05] LABS: Alanine Aminotransferase 12 U/L (6-50); Albumin Level 4.1 g/dL (3.5-5.1); Alkaline Phosphatase 61 U/L (38-126); Anion Gap 10 mmol/L (8-16); Aspartate Amino Transferase 24 U/L (17-59); Bilirubin,Total 0.9 mg/dL (0.2-1.3); Blood Urea Nitrogen 15 mg/dL (9-20); Calcium 9.2 mg/dL (8.4-10.2); Carbon Dioxide 25 mmol/L (22-30); Chloride 98 mmol/L (98-107); Estimated CRCL calculation 80 ml/min; Estimated Glomerular Filt Rate > 60; Glucose 117 mg/dL (65-110); Potassium 3.9 mmol/L (3.4-5.0); Sodium 133 mmol/L (137-145)
[2023-01-10 17:57] LABS: Appearance Urine Clear (Clear); Bacteria Urine None Seen /hpf; Bilirubin Urine 2+ (Negative); Blood Urine Negative (Negative); Color Urine Dark Yellow (Yellow); Glucose Urine UA Negative (Negative); Ketones Urine 3+ mg/dL (Negative); Leukocyte Esterase Ur 1+ LEU/UL (Negative); Need Manual Microscopic Reviewed; Nitrate Urine Negative (Negative); Non Pathogenic Casts 0-2; Protein Urine 2+ mg/dL (Negative); Specific Grav Ur 1.032 (1.001-1.035); Squamous Epithelial Cell Urine None seen /hpf (Few); WBC Urine 0-5 /hpf
[2023-01-10 17:58] LABS: Add Urine Microscopic? YES
--- NOTE | 2023-01-10 20:11 | PM.IMHP ---
H&P: HPI History of Present Illness Date/Time: 01/10/23 20:11 Chief Complaint: SOB Narrative: This is a 57 yo male who lives at a longterm, according to records has been on hospice care was brought to ED due to respiratory distress, patient can't give much history contributory to HPI. Preliminary work up was significant for chest xr with bilateral lung infiltrates. XR chest 1V portable DATE: 01/10/2023 15:55 INDICATION: Shortness of breath, weakness? TECHNIQUE: Portable AP chest on 01/10/2023 at 1549 hours? COMPARISON: 12/21/2022 portable AP chest? FINDINGS: There are patchy consolidating infiltrates in both lower lobes. Bilateral hyperinflation and relative flattening the diaphragm suggesting COPD. Heart size is within normal range.? IMPRESSION: Patchy consolidating bilateral lower lobe infiltrates? Review of Systems Review of Systems: ROS unobtainable: Yes other (patient can't give any meaningful details) PMFSH Past Medical History Medical History Anxiety Hemorrhoids Seizure disorder Surgical History Surgical History History of cholecystectomy Family History Family History (Updated 01/10/23 @ 22:18 by Miguel Villasenor RN) Father Acute myocardial infarction Social History Social History Smoking status: Former smoker Smoking end date: 03/19/15 Alcohol intake: former Substance use: former Substance use type: marijuana Lack of Transportation: No Lack of Food: Never True Current Housing: I Have Housing Concerned About Future Housing: No Difficulty Paying Gas/Electric Bills: No Difficulty Paying for Meds: No Currently Unemployed: No Education: High School Diploma/GED Difficulty w/ Childcare or Family Care: No Spiritual care concerns: No Meds Home Medications and Allergies Home Medications Medication Instructions Recorded Confirmed Type acetaminophen 325 mg capsule 325 mg PO ONCE PRN Pain 02/18/21 01/10/23 History (Tylenol) Fleet Enema See Rx Instructions .Route .COMPLEX 01/10/23 01/10/23 History Miralax 1 packet PO DAILY 01/10/23 01/10/23 History bisacodyl 10 mg RECTAL DAILY PRN Constipation 01/10/23 01/10/23 History bisacodyl 5 mg tablet,delayed 5 mg PO BID 01/10/23 01/10/23 History release (Dulcolax (bisacodyl)) duloxetine 60 mg PO DAILY 01/10/23 01/10/23 History hydromorphone 2 mg PO Q4H PRN Pain 01/10/23 01/10/23 History hyoscyamine 0.125 mg Q4H PRN Secretions 01/10/23 01/10/23 History gkvwve-sgygzoqc-rekyche 2 cap PO TIDWM 01/10/23 01/10/23 History 6,000-19,000-30,000 unit capsule,delayed rel (Creon) lorazepam 1 mg tablet 1 mg PO QID PRN Anxiety 01/10/23 01/10/23 History magnesium hydroxide 400 mg/5 mL 30 ml PO Q3-4D PRN Constipation 01/10/23 01/10/23 History oral suspension (Milk of Magnesia) methadone 5 mg tablet 7.5 mg PO TID Chronic Pain 01/10/23 01/10/23 History metoclopramide HCl 10 mg PO ACHS nausea 01/10/23 01/10/23 History omeprazole 20 mg PO DAILY 01/10/23 01/10/23 History promethazine 12.5 mg tablet 12.5 mg PO Q6H PRN Nausea And 01/10/23 01/10/23 History Vomiting sennosides 8.6 mg-docusate sodium 1 tab-cap PO BID 01/10/23 01/10/23 History 50 mg tablet (Senna with Docusate Sodium) Allergies Allergy/AdvReac Type Severity Reaction Status Date / Time Penicillins Allergy Unknown Unknown Verified 02/18/21 17:00 Vital Signs Vital Signs - 24 hr 01/10/23 15:20 01/10/23 15:35 01/10/23 15:46 Temperature 98.3 F Pulse Rate 130 H 126 H Respiratory Rate 24 H 18 Blood Pressure 107/69 Pulse Oximetry 88 L 94 Oxygen Delivery Nasal Cannula Nasal Cannula Oxygen Flow Rate 2 2 01/10/23 16:59 01/10/23 15:55 01/10/23 16:21 Temperature Pulse Rate 121 H 116 H Respiratory Rate 19 21 H Blood Pressure Pulse Oximetry 9
--- NOTE | 2023-01-10 22:01 | ADMGEN ---
This patient, Ti Araujo, was admitted to IMU Room 201-01. Patient/family oriented to hospital policies and general routines including ID bracelet, bed and alarms, visiting hours, pain management, procedures, bathroom and other care routines, personal items, smoking policy, room service/diet, and visiting hours. Information on how to activate the Rapid Response Team has been discussed. Patient/Family are encouraged to report perceived risks to care and to ask questions if they do not understand what they are told or what they should do.
[2023-01-11] VITALS (20 sets, daily range): BP systolic 109–128; BP diastolic 63–70; PULSE 88–106; RESP 12–18; TEMP 36.7–37.1; O2SAT 88–100; BMI 15.2
[2023-01-11] MEDS: HYDROmorphone HCL (*CRX) 2 MG TABLET PO ×2 (01:34→15:15)
[2023-01-11] MEDS: ALBUTEROL SULFATE NEB 2.5 MG/3 ML INH INHALATION ×4 (02:38→22:59)
[2023-01-11] MEDS: AZITHROMYCIN 500 MG/NS 250 ML 500 MG/250 ML BAG 250 MG IVPB (05:55)
[2023-01-11] MEDS: cefTRIAXone 2 GM/NS 100 ML 2 GM/100 ML BAG IVPB (05:55)
[2023-01-11] MEDS: METOCLOPRAMIDE HCL 10 MG TABLET PO ×4 (06:05→22:34)
[2023-01-11] MEDS: SENNA/DOCUSATE SODIUM TABLET 1 TAB PO ×2 (08:26→22:34)
[2023-01-11] MEDS: polyethylene glycoL 3350 17 GM POWD.PACK PO (08:26)
[2023-01-11] MEDS: methADONE HCL (*CRX) 2.5 MG TABLET PO ×3 (08:26→16:12)
[2023-01-11] MEDS: methADONE HCL (*CRX) 5 MG TABLET PO ×3 (08:26→16:11)
[2023-01-11] MEDS: LIPASE/AMYLASE/PROTEASE 12,000 UNITS CAP 1 CAP PO ×3 (08:26→16:11)
[2023-01-11] MEDS: DULoxetine HCL 60 MG CAPSULE.DR PO (08:26)
[2023-01-11] MEDS: BISACODYL 5 MG TABLET EC PO ×2 (08:27→16:15)
[2023-01-11] MEDS: PANTOPRAZOLE 40 MG TABLET PO (08:27)
[2023-01-11] MEDS: MAGNESIUM HYDROXIDE SUSP 30 ML UDC PO (15:16)
--- NOTE | 2023-01-11 16:03 | PM.IMPN ---
Progress Note: A&P Assessment and Plan (1) Chronic pain: Code(s): G89.29 - Other chronic pain Status: Acute (2) Severe protein-calorie malnutrition: Code(s): E43 - Unspecified severe protein-calorie malnutrition Status: Acute (3) Chronic hypoxic respiratory failure: Code(s): J96.11 - Chronic respiratory failure with hypoxia Status: Acute (4) Community acquired pneumonia: Code(s): J18.9 - Pneumonia, unspecified organism Status: Acute Plan 57M w/ PMH chronic pain, depression, anxiety, severe protein calorie malnutrition, failure to thrive presented via his usual residence at [facility] with respiratory distress. Admitted on 01/11 for hypoxic respiratory failure. the patient himself has a neurocognitive impairment, this is unclear if its congenital or from some event in his adult life. i spoke with the sister Abbi and she is even unable to detail that for me. there are reports he was on chronic o2 at the correction but the sister is unsure of this as well. reportedly he was on hospice but his labs normalized so he graduated. The patient himself tells me he wants to be treated, so we will do that. continue ceftriaxone, azithromycin, pulse ox. cardiac telemetry wean o2 as tolerated. chronic pain and opioid dependence - cont usual regimen and tele +pulse o2 full code currently. Subjective Date/time seen: 01/11/23 16:03 Interval history: NAOE. pt is slow with speech but appears to give appropriate answers. he complaisn of back pain, which is chronic for him, denies sob, cough, or chest pain Review of Systems Review of Systems: All systems reviewed & are unremarkable except as noted in HPI and below Exam Const: General: comfortable and no acute distress Cardio: Rate: regular rate Rhythm: regular rhythm GI: GI Palp: Yes Soft to palpation Auscultation: normal bowel sounds Extrem: General: no edema Objective Data Vital Signs Vital Signs: Vital Signs - 24 hr 01/10/23 16:59 01/10/23 16:21 01/10/23 16:36 Temperature Pulse Rate 116 H 115 H Respiratory Rate 21 H 23 H Blood Pressure Pulse Oximetry 94 97 97 Oxygen Delivery Nasal Cannula Oxygen Flow Rate 4 01/10/23 16:46 01/10/23 16:47 01/10/23 17:00 Temperature Pulse Rate 112 H 111 H 113 H Respiratory Rate 13 15 18 Blood Pressure 117/75 Pulse Oximetry 95 95 95 Oxygen Delivery Oxygen Flow Rate 01/10/23 17:01 01/10/23 19:22 01/10/23 20:12 Temperature Pulse Rate 113 H 82 103 H Respiratory Rate 22 H 18 16 Blood Pressure 117/73 134/68 Pulse Oximetry 94 95 Oxygen Delivery Oxygen Flow Rate 01/10/23 20:19 01/10/23 21:26 01/10/23 23:39 Temperature 99.7 F H Pulse Rate 102 H 100 109 H Respiratory Rate 16 15 22 H Blood Pressure 109/67 107/60 Pulse Oximetry 95 93 Oxygen Delivery Oxygen Flow Rate 01/11/23 00:00 01/11/23 02:40 01/11/23 02:54 Temperature Pulse Rate 98 98 Respiratory Rate 16 16 Blood Pressure Pulse Oximetry 93 Oxygen Delivery Nasal Cannula Oxygen Flow Rate 4 01/11/23 00:00 01/11/23 02:00 01/11/23 04:00 Temperature 98.5 F Pulse Rate 103 H 101 H 103 H Respiratory Rate 18 Blood Pressure 109/63 Pulse Oximetry 93 Oxygen Delivery Oxygen Flow Rate 01/11/23 04:00 01/11/23 06:00 01/11/23 04:00 Temperature Pulse Rate 101 H 95 Respiratory Rate Blood Pressure Pulse Oximetry 93 Oxygen Delivery Nasal Cannula Oxygen Flow Rate 4 01/11/23 08:00 01/11/23 07:30 01/11/23 07:30 Temperature 98.2 F Pulse Rate 92 97 97 Respiratory Rate 16 18 18 Blood Pressure 116/66 Pulse Oximetry 100 94 Oxygen Delivery Nasal Cannula Oxygen Flow Rate 2 01/11/23 07:40 01/11/23 08:00 01/11/23 12:00 Temperature 98.0 F Pulse Rate 98 88 Respiratory Rate 18 16 Blood Pressure 121/64 Pulse Oximetry 98 93 Oxygen Delivery Nasal Cannula Oxygen Flow Rate 2 01/11/23 13:15 01/11/23
--- NOTE | 2023-01-11 18:39 | PC.NURSE ---
This patient, Ti Araujo, was transferred to [ 313] on 01/11/23 at 1839. Personal belongings sent with patient. Report given to [Erinn ]. Appropriate documentation sent with patient.
[2023-01-12] VITALS (11 sets, daily range): BP systolic 107; BP diastolic 77; PULSE 85–99; RESP 14–20; TEMP 36.5; O2SAT 92–98
[2023-01-12] MEDS: ALBUTEROL SULFATE NEB 2.5 MG/3 ML INH INHALATION ×3 (02:59→14:36)
[2023-01-12] MEDS: cefTRIAXone 2 GM/NS 100 ML 2 GM/100 ML BAG IVPB (05:19)
[2023-01-12] MEDS: AZITHROMYCIN 500 MG/NS 250 ML 500 MG/250 ML BAG 250 MG IVPB (05:21)
[2023-01-12] MEDS: METOCLOPRAMIDE HCL 10 MG TABLET PO ×3 (06:44→16:10)
[2023-01-12 07:09] LABS: Basophils Percent Auto 0.3 % (0.2-1.2); Eosinophils Percent Auto 0.3 % (0-4.4); Hematocrit 37.7 % (42.0-52.0); Immature Granulocyte Absolute 0.03 K/mm3 (0.00-0.031); Immature Granulocyte Percent A 0.5 % (0-0.5); Lymphocytes Percent Auto 11.7 % (18.3-44.2); Mean Corpuscular HGB Conc 31.8 g/dl (32-36); Mean Corpuscular Hemoglobin 28.3 pg (26-34); Mean Corpuscular Volume 88.9 fl (80-100); Mean Platelet Volume 9.2 fl (7.4-10.4); Monocytes Absolute Auto 0.8 K/mm3 (0.1-0.6); Monocytes Percent Auto 12.7 % (2.6-8.5); Neutrophils Absolute Auto 4.5 K/mm3 (1.3-6.7); Neutrophils Percent Auto 74.5 % (45.5-73.1); Platelet Count Result 317 k/mm3 (150-375); Red Blood Count 4.24 M/mm3 (4.6-6.20); Red Cell Distribution Width 14.6 % (11.5-14.5)
[2023-01-12 07:26] LABS: Anion Gap 10 mmol/L (8-16); Blood Urea Nitrogen 7 mg/dL (9-20); Calcium 8.7 mg/dL (8.4-10.2); Carbon Dioxide 26 mmol/L (22-30); Chloride 98 mmol/L (98-107); Estimated CRCL calculation 103 ml/min; Estimated Glomerular Filt Rate > 60; Glucose 94 mg/dL (65-110); Potassium 3.9 mmol/L (3.4-5.0); Sodium 134 mmol/L (137-145)
[2023-01-12] MEDS: LIPASE/AMYLASE/PROTEASE 12,000 UNITS CAP 1 CAP PO ×3 (09:08→16:10)
[2023-01-12] MEDS: polyethylene glycoL 3350 17 GM POWD.PACK PO (09:09)
[2023-01-12] MEDS: PANTOPRAZOLE 40 MG TABLET PO (09:09)
[2023-01-12] MEDS: SENNA/DOCUSATE SODIUM TABLET 1 TAB PO (09:09)
[2023-01-12] MEDS: methADONE HCL (*CRX) 5 MG TABLET PO ×2 (09:09→16:10)
[2023-01-12] MEDS: DULoxetine HCL 60 MG CAPSULE.DR PO (09:09)
[2023-01-12] MEDS: methADONE HCL (*CRX) 2.5 MG TABLET PO ×2 (09:09→16:10)
[2023-01-12] MEDS: BISACODYL 5 MG TABLET EC PO ×2 (09:09→16:10)
[2023-01-12] MEDS: HEPARIN SODIUM 5,000 UNITS/ML VIAL 5000 UNITS SUB-Q (09:22)
--- NOTE | 2023-01-12 11:43 | PM.DS ---
DS: Admitting Diagnosis Discharge Date 01/12/23 Admitting Diagnosis hypoxia DS: Discharge Diagnosis Discharge Diagnosis (1) Severe protein-calorie malnutrition: Code(s): E43 - Unspecified severe protein-calorie malnutrition Status: Acute (2) Community acquired pneumonia: Code(s): J18.9 - Pneumonia, unspecified organism Status: Acute (3) Hypoxia: Code(s): R09.02 - Hypoxemia Status: Acute DS: Summary Hospital Course Hospital Course: 57M w/ PMH chronic pain, depression, anxiety, severe protein calorie malnutrition, failure to thrive presented via his usual residence at [facility] with respiratory distress. Admitted on 01/11 for hypoxic respiratory failure. There are conflicting reports about whether he was on chronic o2 or not. The sister, Abbi, reported it was at one point but not chronic. Seeing that he is now off of oxygen, it is likely he had acute hypoxic respiratory failure. he will be nj'ed in stable condition back to [facility] for his alf care with another 3 days of levofloxacin for CAP. all of his other medications will remain the same. he was on hospice recently but graduated, he will remain full code. More than 30 minutes spent on discharge planning and documentation. Time Spent with Patient Time attestation: Total time spent providing and/or coordinating discharge services: DS: Data Data Completed and Pending Labs on day of discharge: Labs from last 24 hours 01/12/23 06:32 WBC 6.0 RBC 4.24 L Hgb 12.0 L Hct 37.7 L MCV 88.9 MCH 28.3 MCHC 31.8 L RDW 14.6 H Plt Count 317 MPV 9.2 Immature Gran % (Auto) 0.5 Neut % (Auto) 74.5 H Lymph % (Auto) 11.7 L [place] % (Auto) 12.7 H Eos % (Auto) 0.3 Baso % (Auto) 0.3 Lymph # (Auto) 0.70 L [place] # (Auto) 0.8 H Eos # (Auto) 0.0 Baso # (Auto) 0.0 Abs Immat Gran (auto) 0.03 Absolute Neuts (auto) 4.5 Absolute Nucleated RBC 0.0 Nucleated RBC % 0.0 Sodium 134 L Potassium 3.9 Chloride 98 Carbon Dioxide 26 Anion Gap 10 BUN 7 L D Creatinine 0.40 L Estim Creat Clear Calc 103 Estimated GFR > 60 Glucose 94 Calcium 8.7 Discharge Plan Discharge Attending physician on discharge: Naomi Palomares Discharging Clinician: Naomi Palomares Patient Disposition: SNF Activity: may shower Diet: as tolerated Stand Alone Forms: General Discharge Information, Senior Care Discharge Follow-up/Referrals: Luis Angel,MD Casey [Primary Care Provider] - 2 Weeks (f/u on pneumonia and other chronic conditions) Discharge Medications: New levofloxacin 750 mg tablet 750 mg PO DAILY 3 Days Qty: 3 0RF Continued magnesium hydroxide [Milk of Magnesia] 400 mg/5 mL Suspension 30 ml PO Q3-4D PRN (Reason: Constipation) Rx Instructions: Give every 3 days of no bowel movement in that time. bisacodyl [Dulcolax (bisacodyl)] 5 mg Tablet,Delayed Release (Dr/Ec) 5 mg PO BID lorazepam 1 mg Tablet 1 mg PO QID PRN (Reason: Anxiety) Fleet Enema See Rx Instructions .ROUTE .COMPLEX Rx Instructions: 1 unit rectally if no results from suppository bisacodyl 10 mg RECTAL DAILY PRN (Reason: Constipation) duloxetine 60 mg PO DAILY hydromorphone 2 mg PO Q4H PRN (Reason: Pain) hyoscyamine 0.125 mg Q4H PRN (Reason: Secretions) Creon 6,000-19,000 -30,000 unit capsule,delayed release(DR/EC) 2 cap PO TIDWM sennosides-docusate sodium [Senna with Docusate Sodium] 8.6-50 mg Tablet 1 tab-cap PO BID acetaminophen [Tylenol] 325 mg Capsule 325 mg PO ONCE PRN (Reason: Pain) Held methadone 5 mg Tablet 7.5 mg PO TID Hold Instructions: Resume on 01/15/23. No Action Miralax 1 packet PO DAILY metoclopramide HCl 10 mg PO ACHS omeprazole 20 mg PO DAILY promethazine 12.5 mg Tablet 12.5 mg PO Q6H PRN (Reason: Nausea And Vomiting) Date of admission: 01/10/23
== END 2023-01-12 18:00 ==
LOC: ANHED 17:22 → ANHIMU 21:29 → ANH3MEDSUR 01-11 19:02
PROVIDERS: Admitting Provider Internal Medicine; Emergency Provider Emergency Medicine; PCP Internal Medicine; Visit Provider General Practice
DX: J18.9 Pneumonia, unspecified organism (principal); E43 Unspecified severe protein-calorie malnutrition; Z68.1 Body mass index [BMI] 19.9 or less, adult; R09.02 Hypoxemia; G89.29 Other chronic pain; R10.9 Unspecified abdominal pain; R31.9 Hematuria, unspecified; R00.0 Tachycardia, unspecified; G40.909 Epilepsy, unspecified, not intractable, without status epilepticus; Z20.822 Contact with and (suspected) exposure to COVID-19; F41.9 Anxiety disorder, unspecified; D64.9 Anemia, unspecified; R11.2 Nausea with vomiting, unspecified; K59.00 Constipation, unspecified; Z99.81 Dependence on supplemental oxygen; Z79.82 Long term (current) use of aspirin; Z79.51 Long term (current) use of inhaled steroids; Z79.891 Long term (current) use of opiate analgesic; Z87.891 Personal history of nicotine dependence
CPT/HCPCS: 36415; 36600; 71045; 80048; 80053; 81001; 82375; 82805; 83050; 85025; 85610; 85730; 87637; 93005; 94640; 96361; 96365; 96368; 96374; 96375; 99285; A9270; G0378; G0379; J0456; J0696; J1644; J1956; J7030

== ENCOUNTER 2023-05-29 11:03 | Emergency (ER) | payer OTHER, SELFPAY ==
[2023-05-29 11:05] VITALS: BP 107/78; PULSE 94; RESP 18; TEMP 36.6; O2SAT 99
[2023-05-29 11:30] VITALS: BP 111/80; PULSE 86; RESP 12; O2SAT 99
[2023-05-29 11:36] LABS: Basophils Absolute Auto 0.1 K/mm3 (0.0-0.1); Basophils Percent Auto 1.4 % (0.2-1.2); Eosinophils Absolute Auto 0.1 K/mm3 (0-0.3); Eosinophils Percent Auto 1.7 % (0-4.4); Hematocrit 41.3 % (42.0-52.0); Hemoglobin 13.4 g/dL (14.0-18.0); Immature Granulocyte Absolute 0.01 K/mm3 (0.00-0.031); Immature Granulocyte Percent A 0.2 % (0-0.5); Lymphocytes Absolute Auto 1.18 K/mm3 (0.9-3.2); Mean Corpuscular HGB Conc 32.4 g/dl (32-36); Mean Corpuscular Hemoglobin 29.8 pg (26-34); Mean Corpuscular Volume 91.8 fl (80-100); Mean Platelet Volume 8.9 fl (7.4-10.4); Monocytes Absolute Auto 0.4 K/mm3 (0.1-0.6); Monocytes Percent Auto 9.3 % (2.6-8.5); Neutrophils Absolute Auto 2.5 K/mm3 (1.3-6.7); Neutrophils Percent Auto 59.4 % (45.5-73.1); Platelet Count Result 271 k/mm3 (150-375); White Blood Count 4.2 K/mm3 (4.5-10.0)
[2023-05-29] MEDS: HALOPERIDOL LACTATE 5 MG/ML VIAL IV PUSH (11:37)
[2023-05-29 11:47] LABS: Alanine Aminotransferase 10 U/L (6-50); Alkaline Phosphatase 54 U/L (38-126); Anion Gap 5 mmol/L (8-16); Aspartate Amino Transferase 18 U/L (17-59); Bilirubin,Total 0.5 mg/dL (0.2-1.3); Blood Urea Nitrogen 14 mg/dL (9-20); Calcium 8.8 mg/dL (8.4-10.2); Carbon Dioxide 29 mmol/L (22-30); Chloride 104 mmol/L (98-107); Estimated CRCL calculation 64 ml/min; Estimated Glomerular Filt Rate > 60; Glucose 97 mg/dL (65-110); Lipase 59 U/L (23-300); Potassium 3.4 mmol/L (3.4-5.0); Sodium 138 mmol/L (137-145)
--- NOTE | 2023-05-29 11:54 | ED.ABDPAIN ---
HPI - Abdominal Pain General Chief Complaint: Abdominal Pain Stated Complaint: chronic abdominal pain Time Seen by Provider: 05/29/23 11:19 History of Present Illness HPI narrative: Patient presenting here with chronic abdominal pain, he has always had lower abdominal pain for many years, last saw GI 2 years ago, has had extensive workup including scopes without any answers. He is here today because he states that seems to be getting a little worse than usual, he is describing some nausea and diarrhea. Related Data Home Medications Medication Instructions Recorded Confirmed acetaminophen 325 mg capsule 325 mg PO ONCE PRN Pain 02/18/21 01/10/23 (Tylenol) Fleet Enema See Rx Instructions .Route .COMPLEX 01/10/23 01/10/23 Miralax 1 packet PO DAILY 01/10/23 01/10/23 bisacodyl 10 mg RECTAL DAILY PRN Constipation 01/10/23 01/10/23 bisacodyl 5 mg tablet,delayed 5 mg PO BID 01/10/23 01/10/23 release (Dulcolax (bisacodyl)) duloxetine 60 mg PO DAILY 01/10/23 01/10/23 hydromorphone 2 mg PO Q4H PRN Pain 01/10/23 01/10/23 hyoscyamine 0.125 mg Q4H PRN Secretions 01/10/23 01/10/23 rvxphk-snqamqfl-ubzcoyh 2 cap PO TIDWM 01/10/23 01/10/23 6,000-19,000-30,000 unit capsule,delayed rel (Creon) lorazepam 1 mg tablet 1 mg PO QID PRN Anxiety 01/10/23 01/10/23 magnesium hydroxide 400 mg/5 mL 30 ml PO Q3-4D PRN Constipation 01/10/23 01/10/23 oral suspension (Milk of Magnesia) methadone 5 mg tablet 7.5 mg PO TID Chronic Pain 01/10/23 01/10/23 metoclopramide HCl 10 mg PO ACHS nausea 01/10/23 01/10/23 omeprazole 20 mg PO DAILY 01/10/23 01/10/23 promethazine 12.5 mg tablet 12.5 mg PO Q6H PRN Nausea And 01/10/23 01/10/23 Vomiting sennosides 8.6 mg-docusate sodium 1 tab-cap PO BID 01/10/23 01/10/23 50 mg tablet (Senna with Docusate Sodium) Allergies Allergy/AdvReac Type Severity Reaction Status Date / Time Penicillins Allergy Unknown Unknown Verified 05/29/23 11:04 Review of Systems Review of Systems: CONST: No fever. HEENT: Congestion C/V: No chest pain RESP: Mild cough GI: Reports abdominal pain, nausea, vomiting[, diarrhea] : No dysuria. M/S: No joint pain. SKIN: No rash. NEURO: [No headache or focal numbness or weakness] PSYCH: [No depression] [facility] Past Medical History Medical History Anxiety Hemorrhoids Seizure disorder Surgical History Surgical History History of cholecystectomy Family History Family History (Updated 01/10/23 @ 22:18 by Miguel Villasenor RN) Father Acute myocardial infarction Social History Social History Smoking status: Former smoker Smoking end date: 03/19/15 Alcohol intake: former Substance use: former Substance use type: marijuana Lack of Transportation: No Lack of Food: Never True Current Housing: I Have Housing Concerned About Future Housing: No Difficulty Paying Gas/Electric Bills: No Difficulty Paying for Meds: No Currently Unemployed: No Education: High School Diploma/GED Difficulty w/ Childcare or Family Care: No Spiritual care concerns: No Exam Narrative: EXAMINATION OF ORGAN SYSTEMS/BODY AREAS: Constitutional: Vital signs per nursing GENERAL:[No acute distress, non-toxic appearing.] HEAD: Normal with no signs of head trauma. EYES: EOMI, conjunctiva normal ENT: Hearing grossly intact LUNGS: Nonlabored breathing. HEART: [Regular rate and rhythm] ABD: [Soft], [very minimally tender to palpation lower abdomen] EXT: Normal range of motion SKIN: [No rashes or lesions.] NEURO: [Alert and oriented x 3. No gross focal sensory or strength deficits.] PSYCH: Normal affect Course Vital Signs Vital signs: Vital Signs Temperature 97.9 F 05/29/23 11:05 Pulse Rate 94 05/29/23 11:05 Respiratory Rate 18 05/29/23 11:05 Blood Pressure 1
[2023-05-29 12:00] VITALS: BP 123/93; PULSE 80; RESP 15; O2SAT 97
[2023-05-29] MEDS: LOPERAMIDE HCL 2 MG CAPSULE 4 MG PO (12:11)
[2023-05-29 12:14] LABS: Appearance Urine Clear (Clear); Bacteria Urine None Seen /hpf; Bilirubin Urine Negative (Negative); Blood Urine Negative (Negative); Color Urine Dark Yellow (Yellow); Glucose Urine UA Negative (Negative); Ketones Urine Trace mg/dL (Negative); Leukocyte Esterase Ur Trace LEU/UL (Negative); Need Manual Microscopic Reviewed; Nitrate Urine Negative (Negative); Non Pathogenic Casts 0-2; Protein Urine Trace mg/dL (Negative); Squamous Epithelial Cell Urine None seen /hpf (Few); WBC Urine 0-5 /hpf
[2023-05-29 12:29] LABS: Add Urine Microscopic? YES
[2023-05-29 12:30] VITALS: BP 113/78; PULSE 80; O2SAT 99
[2023-05-29 12:55] LABS: Influenza A QL RT-PCR Negative (Negative); Influenza B QL RT-PCR Negative (Negative); RSV RNA, RT-PCR Negative (Negative); SARS-CoV-2 RNA PCR Negative (Negative)
[2023-05-29] MEDS: ONDANSETRON INJ 4 MG/2 ML VIAL IV PUSH (13:18)
== END 2023-05-29 13:27 | disposition home or self-care (01) ==
PROVIDERS: Emergency Provider Emergency Medicine; PCP Internal Medicine
DX: R10.30 Lower abdominal pain, unspecified (principal); G89.29 Other chronic pain; Z20.822 Contact with and (suspected) exposure to COVID-19; G40.909 Epilepsy, unspecified, not intractable, without status epilepticus; F41.9 Anxiety disorder, unspecified; Z90.49 Acquired absence of other specified parts of digestive tract; Z87.891 Personal history of nicotine dependence
CPT/HCPCS: 36415; 80053; 81001; 83690; 85025; 87637; 96374; 96375; 99284; A9270; J1630; J2405

== ENCOUNTER 2023-09-04 16:42 | Observation (INO) | payer OTHER, SELFPAY ==
[2023-09-04] VITALS (33 sets, daily range): BP systolic 103–118; BP diastolic 67–82; PULSE 79–101; RESP 15–20; TEMP 36.7; O2SAT 98–100
--- NOTE | ~2023-09-04 | CT_ITS ---
EXAMINATION: CT abdomen pelvis w con DATE: 09/04/2023 19:06 INDICATION: abd pain, diarrhea TECHNIQUE: Computed tomography (CT) of the abdomen and pelvis was performed with 100 mL Omnipaque-350 intravenous contrast. Automated exposure control and iterative reconstruction technique were employe d. The dose-length product was 176.76 mGy-cm. COMPARISON: 12/21/2022. FINDINGS: Lower thorax: Small uncomplicated appearing fat-containing left posterior diaphragmatic hernia. Left basilar scar Liver: Left lobe hemangioma. Right lobe cyst.. Biliary/Gallbladder: Gallbladder is absent. Stable intra and extrahepatic bile duct dilation, likely related to cholecystectomy. Pancreas: Mild pancreatic duct dilation, stable. Spleen: Normal. Adrenals:Bilateral adrenal adenomas. Kidneys: No suspicious mass, obstructing stone, or hydronephrosis. Simple right midpole cyst. GI tract: Moderate distal esophageal and gastric wall edema. Descending and sigmoid colon wall edema. No small or large bowel dilation. Appendix not confidently visualized. Diverticulosis without divert iculitis. Mesentery/Peritoneum: No ascites, mass, or free air. Retroperitoneum: No mass. Pelvis: Incompletely distended urinary bladder with wall thickening. Enlarged prostate. Soft Tissues: Soft tissues and body wall unremarkable. Bones: No acute osseous finding. IMPRESSION: Moderate esophagitis/gastritis. Descending and sigmoid colon wall edema may represent colitis in the appropriate clinical context. Cystitis versus chronic outlet obstruction from prostatomegaly, correlate with urinalysis. Reviewed, dictated and finalized at [facility]. IMPRESSION: Moderate esophagitis/gastritis. Descending and sigmoid colon wall edema may represent colitis in the appropriat e clinical context. Cystitis versus chronic outlet obstruction from prostatomegaly, correlate with urinalysis.
[2023-09-04 18:37] LABS: Basophils Absolute Auto 0.1 K/mm3 (0.0-0.1); Basophils Percent Auto 1.3 % (0.2-1.2); Eosinophils Absolute Auto 0.1 K/mm3 (0-0.3); Hematocrit 42.5 % (42.0-52.0); Immature Granulocyte Absolute 0.01 K/mm3 (0.00-0.031); Immature Granulocyte Percent A 0.1 % (0-0.5); Lymphocytes Absolute Auto 1.82 K/mm3 (0.9-3.2); Lymphocytes Percent Auto 26.4 % (18.3-44.2); Mean Corpuscular HGB Conc 32.9 g/dl (32-36); Mean Corpuscular Hemoglobin 30.3 pg (26-34); Mean Platelet Volume 8.8 fl (7.4-10.4); Monocytes Absolute Auto 0.7 K/mm3 (0.1-0.6); Monocytes Percent Auto 9.9 % (2.6-8.5); Neutrophils Absolute Auto 4.2 K/mm3 (1.3-6.7); Neutrophils Percent Auto 60.3 % (45.5-73.1); Platelet Count Result 315 k/mm3 (150-375); Red Blood Count 4.62 M/mm3 (4.6-6.20); Red Cell Distribution Width 13.5 % (11.5-14.5); White Blood Count 6.9 K/mm3 (4.5-10.0)
[2023-09-04 18:41] LABS: Alanine Aminotransferase 11 U/L (6-50); Albumin Level 4.5 g/dL (3.5-5.1); Alkaline Phosphatase 59 U/L (38-126); Anion Gap 7 mmol/L (4-12); Aspartate Amino Transferase 21 U/L (17-59); Bilirubin,Total 0.7 mg/dL (0.2-1.3); Blood Urea Nitrogen 15 mg/dL (9-20); Calcium 9.2 mg/dL (8.4-10.2); Carbon Dioxide 28 mmol/L (22-30); Chloride 102 mmol/L (98-107); Estimated CRCL calculation 66 ml/min; Estimated Glomerular Filt Rate > 60; Glucose 80 mg/dL (65-110); Lipase 59 U/L (23-300); Potassium 3.9 mmol/L (3.4-5.0); Sodium 137 mmol/L (137-145)
--- NOTE | 2023-09-04 18:59 | ED.ABDPAIN ---
HPI - Abdominal Pain General Chief Complaint: Abdominal Pain <Sandy Obrien PA-C - Last Filed: 09/04/23 21:52> Stated Complaint: abd pain <Sandy Obrien PA-C - Last Filed: 09/04/23 21:52> Time Seen by Provider: 09/04/23 18:10 <Sandy Obrien PA-C - Last Filed: 09/04/23 21:52> Source: patient <REYNALDO Guerra Last Filed: 09/04/23 21:52> Mode of arrival: EMS <REYNALDO Guerra Last Filed: 09/04/23 21:52> Limitations: no limitations <Sandy Obrien PA-C - Last Filed: 09/04/23 21:52> History of Present Illness HPI narrative: This is a 58 year old male that presents to the ER for acute on chronic abdominal pain. Reports ongoing for years. Worsening the last couple of days. Reports associated nausea and diarrhea. Denies fevers or vomiting. <Sandy Obrien PA-C - Last Filed: 09/04/23 21:52> Related Data Home Medications: Home Medications Medication Instructions Recorded Confirmed acetaminophen 325 mg capsule 325 mg PO ONCE PRN Pain 02/18/21 01/10/23 (Tylenol) Fleet Enema See Rx Instructions .Route .COMPLEX 01/10/23 01/10/23 Miralax 1 packet PO DAILY 01/10/23 01/10/23 bisacodyl 10 mg RECTAL DAILY PRN Constipation 01/10/23 01/10/23 bisacodyl 5 mg tablet,delayed 5 mg PO BID 01/10/23 01/10/23 release (Dulcolax (bisacodyl)) duloxetine 60 mg PO DAILY 01/10/23 01/10/23 hydromorphone 2 mg PO Q4H PRN Pain 01/10/23 01/10/23 hyoscyamine 0.125 mg Q4H PRN Secretions 01/10/23 01/10/23 zlljxd-pvrgyaqj-dlczukx 2 cap PO TIDWM 01/10/23 01/10/23 6,000-19,000-30,000 unit capsule,delayed rel (Creon) lorazepam 1 mg tablet 1 mg PO QID PRN Anxiety 01/10/23 01/10/23 magnesium hydroxide 400 mg/5 mL 30 ml PO Q3-4D PRN Constipation 01/10/23 01/10/23 oral suspension (Milk of Magnesia) methadone 5 mg tablet 7.5 mg PO TID Chronic Pain 01/10/23 01/10/23 metoclopramide HCl 10 mg PO ACHS nausea 01/10/23 01/10/23 omeprazole 20 mg PO DAILY 01/10/23 01/10/23 promethazine 12.5 mg tablet 12.5 mg PO Q6H PRN Nausea And 01/10/23 01/10/23 Vomiting sennosides 8.6 mg-docusate sodium 1 tab-cap PO BID 01/10/23 01/10/23 50 mg tablet (Senna with Docusate Sodium) <Sandy Obrien PA-C - Last Filed: 09/04/23 21:52> Allergies/Adverse Reactions: Allergies Allergy/AdvReac Type Severity Reaction Status Date / Time Penicillins Allergy Unknown Unknown Verified 09/04/23 16:48 <Sandy Obrien PA-C - Last Filed: 09/04/23 21:52> Review of Systems Review of Systems: CONSTITUTIONAL: Denies fever GASTROINTESTINAL: Reports abdominal pain, nausea, and diarrhea. <Sandy Obrien PA-C - Last Filed: 09/04/23 21:52> All systems reviewed & are unremarkable except as noted in HPI and below <Sandy Obrien PA-C - Last Filed: 09/04/23 21:52> [facility] Past Medical History Medical History: Medical History Anxiety Hemorrhoids Seizure disorder <Sandy Obrien PA-C - Last Filed: 09/04/23 21:52> Surgical History Surgical History: Surgical History History of cholecystectomy <Sandy Obrien PA-C - Last Filed: 09/04/23 21:52> Family History Family History: Family History (Updated 01/10/23 @ 22:18 by Miguel Villasenor RN) Father Acute myocardial infarction <Sandy Obrien PA-C - Last Filed: 09/04/23 21:52> Social History Social History: Social History Smoking status: Former smoker Smoking end date: 03/19/15 Alcohol intake: former Substance use: former Substance use type: marijuana Lack of Transportation: No Lack of Food: Never True Current Housing: I Have Housing Concerned About Future Housing: No Difficulty Paying Gas/Electric Bills: No Difficulty Paying for Meds: No Currently Unemployed: No Education: High School Diploma/GED Difficulty w/
[2023-09-04] MEDS: PANTOPRAZOLE SODIUM IV 40 MG VIAL IV PUSH (19:14)
[2023-09-04] MEDS: ONDANSETRON INJ 4 MG/2 ML VIAL IV PUSH (19:14)
[2023-09-04 19:30] LABS: Appearance Urine Clear (Clear); Bacteria Urine None Seen /hpf; Bilirubin Urine Negative (Negative); Blood Urine Negative (Negative); Color Urine Dark Yellow (Yellow); Glucose Urine UA Negative (Negative); Ketones Urine 2+ mg/dL (Negative); Leukocyte Esterase Ur Negative LEU/UL (Negative); Nitrate Urine Negative (Negative); Non Pathogenic Casts 0-2; Protein Urine Trace mg/dL (Negative); Squamous Epithelial Cell Urine None Seen /hpf (Few); WBC Urine 0-5 /hpf (0-3); pH Urine 5.5 (5.0-9.0)
[2023-09-04 19:31] LABS: Specific Grav Ur 1.046 (1.001-1.035)
[2023-09-04 19:32] LABS: Add Urine Microscopic? YES
--- NOTE | 2023-09-04 20:15 | PC.NURSE ---
verified with erp that pt does not need blood cultures prior to starting antibiotics.
[2023-09-04] MEDS: SODIUM CHLORIDE 0.9% IV 500 ML 999 ML IV CONT (20:41)
[2023-09-04] MEDS: metroNIDAZOLE 500 MG/ISO 100ML 500 MG/100 ML BAG 100 MG IVPB (21:00)
--- NOTE | 2023-09-04 21:17 | PM.IMHP ---
H&P: HPI History of Present Illness Date/Time: 09/04/23 21:17 Chief Complaint: Abdominal pain Narrative: Patient is 58-year-old male with history of smoking, COPD, gastric reflux, came to the hospital complaining of diarrhea which lasted about 2-3 days. Patient has had this abdominal pain for last few months last colonoscopy was about 5 years ago but recently his diarrhea has gotten worse. Patient states he has no history of any inflammatory bowel disease, does have history of alcohol abuse in the past which he has quit denied any fever chills nausea vomiting. No recent travel no recent use of antibiotics. Is on chronic pain medications also takes methadone hydrocodone duloxetine Review of Systems Review of Systems: All systems reviewed & are unremarkable except as noted in HPI and below PMFSH Past Medical History Medical History Anxiety Hemorrhoids Seizure disorder Surgical History Surgical History History of cholecystectomy Family History Family History (Updated 01/10/23 @ 22:18 by Miguel Villasenor RN) Father Acute myocardial infarction Social History Social History Smoking status: Former smoker Smoking end date: 03/19/15 Alcohol intake: former Substance use: former Substance use type: marijuana Lack of Transportation: No Lack of Food: Never True Current Housing: I Have Housing Concerned About Future Housing: No Difficulty Paying Gas/Electric Bills: No Difficulty Paying for Meds: No Currently Unemployed: No Education: High School Diploma/GED Difficulty w/ Childcare or Family Care: No Spiritual care concerns: No Meds Home Medications and Allergies Home Medications Medication Instructions Recorded Confirmed Type acetaminophen 325 mg capsule 325 mg PO ONCE PRN Pain 02/18/21 01/10/23 History (Tylenol) Fleet Enema See Rx Instructions .Route .COMPLEX 01/10/23 01/10/23 History Miralax 1 packet PO DAILY 01/10/23 01/10/23 History bisacodyl 10 mg RECTAL DAILY PRN Constipation 01/10/23 01/10/23 History bisacodyl 5 mg tablet,delayed 5 mg PO BID 01/10/23 01/10/23 History release (Dulcolax (bisacodyl)) duloxetine 60 mg PO DAILY 01/10/23 01/10/23 History hydromorphone 2 mg PO Q4H PRN Pain 01/10/23 01/10/23 History hyoscyamine 0.125 mg Q4H PRN Secretions 01/10/23 01/10/23 History [id number]-lnijcajt-fuggnkc 2 cap PO TIDWM 01/10/23 01/10/23 History 6,000-19,000-30,000 unit capsule,delayed rel (Creon) lorazepam 1 mg tablet 1 mg PO QID PRN Anxiety 01/10/23 01/10/23 History magnesium hydroxide 400 mg/5 mL 30 ml PO Q3-4D PRN Constipation 01/10/23 01/10/23 History oral suspension (Milk of Magnesia) methadone 5 mg tablet 7.5 mg PO TID Chronic Pain 01/10/23 01/10/23 History metoclopramide HCl 10 mg PO ACHS nausea 01/10/23 01/10/23 History omeprazole 20 mg PO DAILY 01/10/23 01/10/23 History promethazine 12.5 mg tablet 12.5 mg PO Q6H PRN Nausea And 01/10/23 01/10/23 History Vomiting sennosides 8.6 mg-docusate sodium 1 tab-cap PO BID 01/10/23 01/10/23 History 50 mg tablet (Senna with Docusate Sodium) levofloxacin 750 mg tablet 750 mg PO DAILY 3 days #3 tabs 01/12/23 Rx ondansetron 4 mg disintegrating 4 mg PO Q8H PRN nausea and 05/29/23 Rx tablet vomiting #4 tabs Allergies Allergy/AdvReac Type Severity Reaction Status Date / Time Penicillins Allergy Unknown Unknown Verified 09/04/23 16:48 Vital Signs Vital Signs - 24 hr 09/04/23 16:44 09/04/23 18:30 09/04/23 19:30 Temperature 36.7 C Pulse Rate 101 H 85 85 Respiratory Rate 20 16 18 Blood Pressure 103/78 118/78 104/75 Pulse Oximetry 98 99 99 Oxygen Delivery Room Air 09/04/23 20:30 Temperature Pulse Rate 85 Respiratory Rate 16 Blood Pressure 111/80 Pulse Oximetry 99 Oxygen Delivery Exam Narrative: GEN
[2023-09-04] MEDS: MORPHINE SULFATE (*CRX) 4 MG/ML INJ IV PUSH (22:38)
--- NOTE | 2023-09-04 23:46 | ADMGEN ---
This patient, Ti Araujo, was admitted to Medical Room 344-01. Patient/family oriented to hospital policies and general routines including ID bracelet, bed and alarms, visiting hours, pain management, procedures, bathroom and other care routines, personal items, smoking policy, room service/diet, and visiting hours. Information on how to activate the Rapid Response Team has been discussed. Patient/Family are encouraged to report perceived risks to care and to ask questions if they do not understand what they are told or what they should do.
[2023-09-05 00:12] VITALS: BMI 14.5
[2023-09-05 00:13] VITALS: BP 109/69; PULSE 79; RESP 18; TEMP 36.4; O2SAT 97
[2023-09-05] MEDS: HYDROcodone/acetaminophen (*CRX) 10-325 MG TABLET 1 TAB PO ×4 (02:12→21:04)
[2023-09-05] MEDS: metroNIDAZOLE 500 MG/ISO 100ML 500 MG/100 ML BAG 100 MG IVPB ×3 (05:21→21:05)
[2023-09-05 06:00] VITALS: BP 113/66; PULSE 77; RESP 20; TEMP 36.4; O2SAT 99
[2023-09-05 09:02] LABS: Alanine Aminotransferase 9 U/L (6-50); Albumin Level 4.1 g/dL (3.5-5.1); Alkaline Phosphatase 61 U/L (38-126); Anion Gap 10 mmol/L (4-12); Aspartate Amino Transferase 19 U/L (17-59); Bilirubin,Total 0.7 mg/dL (0.2-1.3); Blood Urea Nitrogen 11 mg/dL (9-20); Calcium 8.7 mg/dL (8.4-10.2); Carbon Dioxide 25 mmol/L (22-30); Chloride 103 mmol/L (98-107); Estimated CRCL calculation 64 ml/min; Estimated Glomerular Filt Rate > 60; Glucose 65 mg/dL (65-110); Potassium 3.7 mmol/L (3.4-5.0); Sodium 138 mmol/L (137-145)
[2023-09-05] MEDS: PANTOPRAZOLE SODIUM IV 40 MG VIAL IV PUSH ×2 (09:05→21:03)
[2023-09-05] MEDS: DULoxetine HCL 60 MG CAPSULE.DR PO (09:05)
--- NOTE | 2023-09-05 09:38 | PM.IMPN ---
Progress Note: A&P Assessment and Plan (1) Colitis: Code(s): K52.9 - Noninfective gastroenteritis and colitis, unspecified Status: Acute (2) Chronic pain: Code(s): G89.29 - Other chronic pain Status: Acute (3) Hypoxia: Code(s): R09.02 - Hypoxemia Status: Acute (4) Severe protein-calorie malnutrition: Code(s): E43 - Unspecified severe protein-calorie malnutrition Status: Acute (5) End stage COPD: Code(s): J44.9 - Chronic obstructive pulmonary disease, unspecified Status: Acute Plan Colitis versus IBD IV fluid resuscitation Repeat CBC CMP Stool cultures. The main needed GI and a colonoscopy if diarrhea does not resolve Stool for occult blood Two sets of Blood cultures Steroids suggested if septic shock on his positive fluid resuscitation and vasopressors. IV antibiotics ceftriaxone and Flagyl -will consult GI as unsure why he is having abd pain. if he is stable- no diarrhea- will discharge and he might need to f/u with GI outpt for further workup. History of chronic pain syndrome. Continue on methadone and hydrocodone will hold History of severe protein calorie malnutrition should consult dietitian. History of chronic bronchitis and hypoxemia continue inhalers History of depression continue duloxetine. History of GERD will continue Protonix Time Spent With Patient Time with patient: 25 - 35 minutes Subjective Date/time seen: 09/05/23 09:38 Interval history: 58-year-old male with history of smoking, COPD, gastric reflux, came to the hospital complaining of diarrhea which lasted about 2-3 days. Patient has had this abdominal pain for last few months last colonoscopy was about 5 years ago but recently his diarrhea has gotten worse. Patient states he has no history of any inflammatory bowel disease, does have history of alcohol abuse in the past which he has quit denied any fever chills nausea vomiting. No recent travel no recent use of antibiotics. Is on chronic pain medications also takes methadone hydrocodone duloxetine 09/04- pt is seen and examined. He appears comfortable but reports sever sharp abd pain with nausea. CT: Moderate esophagitis/gastritis. Descending and sigmoid colon wall edema may represent colitis in the appropriate clinical context. Cystitis versus chronic outlet obstruction from prostatomegaly, correlate with urinalysis. Apparently he had been dealing with abd pain for over 3 years and snf providers have his on methadone and hydrocodone for abd pain. Reports using alcohol when he was youger but not abused it. denies any hepatitis, any abd surgeries. Had been struggling with constipation but able to have BMs.Denies blood in urine/stool. Review of Systems Review of Systems: All systems reviewed & are unremarkable except as noted in HPI and below Exam Narrative: GENERAL: Well appearing, no acute distress. HEAD: Normocephalic, atraumatic. NECK: Supple. No adenopathy, no masses. RESPIRATORY: respirations nonlabored. , no rales, wheezing. CARDIOVASCULAR: Regular rate and rhythm without murmurs, . Peripheral pulses 2+ and equal bilaterally. ABDOMINAL: Soft, generalize tender, nondistended, no hepatosplenomegaly. Normoactive BS. MUSCULOSKELETAL: no Epigastric and no hypochondrial tenderness SKIN: Warm, dry, NEURO: A&O X3. Moves all extremities Objective Data Vital Signs Vital Signs: Vital Signs - 24 hr 09/04/23 16:44 09/04/23 18:30 09/04/23 19:30 Temperature 98.0 F Pulse Rate 101 H 85 85 Respiratory Rate 20 16 18 Blood Pressure 103/78 118/78 104/75 Pulse Oximetry 98 99 99 Oxygen Delivery Room Air 09/04/23 20:30 09/04/23 21:36 09/04/23 22:49 Temperature Pulse Rate 85 79 79 Respiratory Rate 16 18 15 Blood Pressure 111/80 103/76 115/75 Pulse Oximetry 99 100 100 Oxygen Delivery 09/04/23 18:22 09/04/23 18:23 09/04/23 18:30 Temperature Pulse Rate Respiratory Rate Blood
[2023-09-05 11:32] VITALS: BMI 14.5
[2023-09-05 14:00] VITALS: BP 111/66; PULSE 84; RESP 16; TEMP 36.7; O2SAT 98
[2023-09-05] MEDS: DICYCLOMINE HCL 10 MG CAPSULE 20 MG PO ×2 (14:41→21:04)
[2023-09-05] MEDS: ONDANSETRON INJ 4 MG/2 ML VIAL IV PUSH (16:15)
--- NOTE | 2023-09-05 18:30 | WPDGICN ---
Assessment and Plan Assessment and plan (1) Chronic diarrhea: Code(s): K52.9 - Noninfective gastroenteritis and colitis, unspecified Status: Acute Assessment and Plan: no report of diarrhea here but ct scan possible colitis on abx now plan is to schedule colonoscopy in 3-4 weeks as outpatient ok to advance diet and discharge tomorrow (2) Chronic pain: Code(s): G89.29 - Other chronic pain Status: Acute Assessment and Plan: on narcotics at nursing facility (3) Colitis: Code(s): K52.9 - Noninfective gastroenteritis and colitis, unspecified Status: Acute Assessment and Plan: on abx normal wbc (4) End stage COPD: Code(s): J44.9 - Chronic obstructive pulmonary disease, unspecified Status: Acute (5) Abnormal CT scan, esophagus: Code(s): R93.3 - Abnormal findings on diagnostic imaging of other parts of digestive tract Status: Acute Assessment and Plan: ? esophagitis also will assess with egd as outpatient ppi for now GI Consult Note Consult date/time: 09/05/23 18:30 Reason for consult: abdominal pain, possible colitis HPI: Ti Araujo is a 58 year old male wiht history of smoking, COPD, and chronic abdominal pain came to the hospital complaining of diarrhea for few days but he is poor historian from a fpc. He says that had pain for more than 2 years, CT scan revealed possible colitis and esophagitis, started on antibiotics, ppi and he is comfortable now, no report of diarrhea here. Apparently he had last colonoscopy about 5 years ago. Normal wbc, renal and liver function. Noted that he is on methadone in nursing facility, could not tell me why, Review of Systems Constitutional: Constitutional: Denies chills Eyes: Eyes: Denies blurry vision ENT: Reports Normal hearing present Cardiovascular: Cardiovascular: Denies chest pain Respiratory: Respiratory: Denies cough Gastrointestinal: Gastrointestinal: Reports abdominal pain and Reports diarrhea Genitourinary: Genitourinary: Denies urinary frequency Musculoskeletal: Musculoskeletal: Denies neck pain Integumentary/Breasts: Skin/Breast: Denies rash Neurologic: Denies Abnormal speech present Psychiatric: Psychiatric: Denies behavioral changes [facility] Past Medical History Medical History (Updated 09/05/23 @ 18:33 by Eliel Zepeda MD) Abnormal CT scan, esophagus Anxiety Chronic diarrhea Hemorrhoids Seizure disorder Surgical History Surgical History History of cholecystectomy Family History Family History Father Acute myocardial infarction Social History Social History Smoking packs per day: 1 Smoking cigarettes per day: 20.0 Years smoked: 13 Smoking pack-years: 13.00 Smoking status: Current every day smoker Smoking end date: 03/19/15 Alcohol intake: never Substance use: never Substance use type: marijuana Do You Feel Safe in your Home?: Yes Lack of Transportation: No Lack of Food: Never True Current Housing: I Have Housing Concerned About Future Housing: No Difficulty Paying Gas/Electric Bills: No Difficulty Paying for Meds: No Currently Unemployed: No Education: High School Diploma/GED Difficulty w/ Childcare or Family Care: No Spiritual care concerns: No Meds Home Medications and Allergies Home Medications Medication Instructions Recorded Confirmed Type acetaminophen 325 mg capsule 650 mg PO Q6H PRN Pain (Scale 02/18/21 09/05/23 History (Tylenol) Score 1-3) Fleet Enema See Rx Instructions .Route .COMPLEX 01/10/23 09/05/23 History mvcqgy-kcnriguk-qkhljks 2 cap PO TIDWM 01/10/23 09/05/23 History 6,000-19,000-30,000 unit capsule,delayed rel (Creon) lorazepam 1 mg tablet 1 mg PO Q4H PRN Anxiety 01/10/23
[2023-09-05] MEDS: FLUTICASONE/SALMETEROL 115-21 MCG INHALER 1 PUFF 2 PUFF INHALATION (19:53)
[2023-09-05 20:02] VITALS: BP 104/52; PULSE 82; RESP 18; TEMP 36.5; O2SAT 98
[2023-09-05] MEDS: LORazepam (*CRX) 1 MG TABLET PO (21:04)
[2023-09-06] MEDS: DICYCLOMINE HCL 10 MG CAPSULE 20 MG PO (03:36)
[2023-09-06] MEDS: HYDROcodone/acetaminophen (*CRX) 10-325 MG TABLET 1 TAB PO ×2 (03:36→09:44)
[2023-09-06] MEDS: LORazepam (*CRX) 1 MG TABLET PO (03:36)
[2023-09-06] MEDS: metroNIDAZOLE 500 MG/ISO 100ML 500 MG/100 ML BAG 100 MG IVPB (05:39)
[2023-09-06 05:42] VITALS: BP 110/74; PULSE 77; RESP 20; TEMP 36.4; O2SAT 100
--- NOTE | 2023-09-06 08:37 | PM.IMPN ---
Progress Note: A&P Assessment and Plan (1) Colitis: Code(s): K52.9 - Noninfective gastroenteritis and colitis, unspecified Status: Acute (2) Chronic pain: Code(s): G89.29 - Other chronic pain Status: Acute (3) Hypoxia: Code(s): R09.02 - Hypoxemia Status: Acute (4) Severe protein-calorie malnutrition: Code(s): E43 - Unspecified severe protein-calorie malnutrition Status: Acute (5) End stage COPD: Code(s): J44.9 - Chronic obstructive pulmonary disease, unspecified Status: Acute Plan Colitis versus IBD IV fluid resuscitation Repeat CBC CMP Stool cultures. The main needed GI and a colonoscopy if diarrhea does not resolve Stool for occult blood Two sets of Blood cultures Steroids suggested if septic shock on his positive fluid resuscitation and vasopressors. IV antibiotics ceftriaxone and Flagyl -will consult GI as unsure why he is having abd pain. if he is stable- no diarrhea- will discharge and he might need to f/u with GI outpt for further workup. no report of diarrhea here but ct scan possible colitis on abx now plan is to schedule colonoscopy in 3-4 weeks as outpatient ok to advance diet and discharge tomorrow PPI History of chronic pain syndrome. Continue on methadone and hydrocodone will hold History of severe protein calorie malnutrition should consult dietitian. History of chronic bronchitis and hypoxemia continue inhalers History of depression continue duloxetine. History of GERD will continue Protonix Subjective Date/time seen: 09/06/23 08:37 Interval history: 58-year-old male with history of smoking, COPD, gastric reflux, came to the hospital complaining of diarrhea which lasted about 2-3 days. Patient has had this abdominal pain for last few months last colonoscopy was about 5 years ago but recently his diarrhea has gotten worse. Patient states he has no history of any inflammatory bowel disease, does have history of alcohol abuse in the past which he has quit denied any fever chills nausea vomiting. No recent travel no recent use of antibiotics. Is on chronic pain medications also takes methadone hydrocodone duloxetine 09/04- pt is seen and examined. He appears comfortable but reports sever sharp abd pain with nausea. CT: Moderate esophagitis/gastritis. Descending and sigmoid colon wall edema may represent colitis in the appropriate clinical context. Cystitis versus chronic outlet obstruction from prostatomegaly, correlate with urinalysis. Apparently he had been dealing with abd pain for over 3 years and retirement providers have his on methadone and hydrocodone for abd pain. Reports using alcohol when he was youger but not abused it. denies any hepatitis, any abd surgeries. Had been struggling with constipation but able to have BMs.Denies blood in urine/stool. 09/05- GI saw pt - Outpt colonoscopy/EGD in 3-4 weeks- continue with PPI. will discharge today Review of Systems Review of Systems: All systems reviewed & are unremarkable except as noted in HPI and below Exam Narrative: GENERAL: Well appearing, no acute distress. HEAD: Normocephalic, atraumatic. NECK: Supple. No adenopathy, no masses. RESPIRATORY: respirations nonlabored. , no rales, wheezing. CARDIOVASCULAR: Regular rate and rhythm without murmurs, . Peripheral pulses 2+ and equal bilaterally. ABDOMINAL: Soft, generalize tender, nondistended, no hepatosplenomegaly. Normoactive BS. MUSCULOSKELETAL: no Epigastric and no hypochondrial tenderness SKIN: Warm, dry, NEURO: A&O X3. Moves all extremities Objective Data Vital Signs Vital Signs: Vital Signs - 24 hr 09/05/23 14:00 09/05/23 20:02 09/05/23 20:00 Temperature 98.1 F 97.7 F Pulse Rate 84 82 Respiratory Rate 16 18 Blood Pressure 111/66 104/52 L Pulse Oximetry 98 98 Oxygen Delivery Room Air 09/06/23 05:42 Temperature 97.6 F Pulse Rate 77 Respiratory Rate 20 Blood Pressure 110/74
[2023-09-06] MEDS: FLUTICASONE/SALMETEROL 115-21 MCG INHALER 1 PUFF 2 PUFF INHALATION (08:43)
[2023-09-06] MEDS: PANTOPRAZOLE SODIUM IV 40 MG VIAL IV PUSH (09:02)
[2023-09-06] MEDS: DULoxetine HCL 60 MG CAPSULE.DR PO (09:02)
--- NOTE | 2023-09-06 11:15 | PM.DS ---
DS: Admitting Diagnosis Discharge Date 09/05 Admitting Diagnosis diarrhea DS: Discharge Diagnosis Discharge Diagnosis (1) Colitis: Code(s): K52.9 - Noninfective gastroenteritis and colitis, unspecified Status: Acute (2) Chronic pain: Code(s): G89.29 - Other chronic pain Status: Acute (3) Hypoxia: Code(s): R09.02 - Hypoxemia Status: Acute (4) Severe protein-calorie malnutrition: Code(s): E43 - Unspecified severe protein-calorie malnutrition Status: Acute (5) End stage COPD: Code(s): J44.9 - Chronic obstructive pulmonary disease, unspecified Status: Acute Plan Final dx: Colitis Colitis versus IBD IV fluid resuscitation Repeat CBC CMP Stool cultures. The main needed GI and a colonoscopy if diarrhea does not resolve Stool for occult blood Two sets of Blood cultures Steroids suggested if septic shock on his positive fluid resuscitation and vasopressors. IV antibiotics ceftriaxone and Flagyl -will consult GI as unsure why he is having abd pain. if he is stable- no diarrhea- will discharge and he might need to f/u with GI outpt for further workup. no report of diarrhea here but ct scan possible colitis on abx now plan is to schedule colonoscopy in 3-4 weeks as outpatient ok to advance diet and discharge tomorrow PPI History of chronic pain syndrome. Continue on methadone and hydrocodone will hold History of severe protein calorie malnutrition should consult dietitian. History of chronic bronchitis and hypoxemia continue inhalers History of depression continue duloxetine. History of GERD will continue Protonix DS: Summary Hospital Course Hospital Course: 58-year-old male with history of smoking, COPD, gastric reflux, came to the hospital complaining of diarrhea which lasted about 2-3 days. Patient has had this abdominal pain for last few months last colonoscopy was about 5 years ago but recently his diarrhea has gotten worse. Patient states he has no history of any inflammatory bowel disease, does have history of alcohol abuse in the past which he has quit denied any fever chills nausea vomiting. No recent travel no recent use of antibiotics. Is on chronic pain medications also takes methadone hydrocodone duloxetine 09/04- pt is seen and examined. He appears comfortable but reports sever sharp abd pain with nausea. CT: Moderate esophagitis/gastritis. Descending and sigmoid colon wall edema may represent colitis in the appropriate clinical context. Cystitis versus chronic outlet obstruction from prostatomegaly, correlate with urinalysis. Apparently he had been dealing with abd pain for over 3 years and [facility] providers have his on methadone and hydrocodone for abd pain. Reports using alcohol when he was youger but not abused it. denies any hepatitis, any abd surgeries. Had been struggling with constipation but able to have BMs.Denies blood in urine/stool. Status at Discharge Cognitive/behavioral status at discharge: alert Functional status at discharge: wheelchair bound Overall status at discharge: patient is back to baseline Time Spent with Patient Time attestation: Total time spent providing and/or coordinating discharge services: Time spent: Less than 30 minutes Exam Narrative: GENERAL: Well appearing, no acute distress. HEAD: Normocephalic, atraumatic. NECK: Supple. No adenopathy, no masses. RESPIRATORY: respirations nonlabored. , no rales, wheezing. CARDIOVASCULAR: Regular rate and rhythm without murmurs, . Peripheral pulses 2+ and equal bilaterally. ABDOMINAL: Soft, generalize tender, nondistended, no hepatosplenomegaly. Normoactive BS- no more diarrhea MUSCULOSKELETAL: no Epigastric and no hypochondrial tenderness SKIN: Warm, dry, NEURO: A&O X3. Moves all extremities Const: General: comfortable Skin: General skin exam: normal color Neuro: Sensory Exam: normal sensation Psych: Affect: normal affect DS: Stevan
== END 2023-09-06 12:10 ==
LOC: ANHED 21:46 → ANH3MED 09-05 03:01 → ANHIMU 09-10 06:57 → ANH3MED 09-10 06:57
PROVIDERS: Admitting Provider Internal Medicine; Emergency Provider Physician Assistant; PCP Internal Medicine; Visit Provider Internal Medicine
DX: K52.9 Noninfective gastroenteritis and colitis, unspecified (principal); R09.02 Hypoxemia; J44.9 Chronic obstructive pulmonary disease, unspecified; E43 Unspecified severe protein-calorie malnutrition; Z68.1 Body mass index [BMI] 19.9 or less, adult; G89.4 Chronic pain syndrome; G40.909 Epilepsy, unspecified, not intractable, without status epilepticus; K21.9 Gastro-esophageal reflux disease without esophagitis; F32.A Depression, unspecified; F41.9 Anxiety disorder, unspecified; Z87.891 Personal history of nicotine dependence; Z79.51 Long term (current) use of inhaled steroids; Z79.891 Long term (current) use of opiate analgesic
CPT/HCPCS: 36415; 74177; 80053; 81001; 83690; 85025; 87040; 94640; 96365; 96366; 96367; 96375; 96376; 99285; A9270; C9113; G0378; G0379; J0696; J1836; J2270; J2405; J7040; Q9967

== ENCOUNTER 2023-10-16 01:09 | Day surgery (SDC) | payer OTHER, SELFPAY ==
[2023-10-16] VITALS (24 sets, daily range): BP systolic 81–124; BP diastolic 56–83; PULSE 72–99; RESP 7–20; TEMP 36.2–36.9; O2SAT 98–100
--- NOTE | ~2023-10-16 | CT_ITS ---
Non-contrast CT scan of the Abdomen and Pelvis Clinical indication: Decreased urine output Technique: 2.5 mm axial scans were obtained through the abdomen and pelvis without intravenous or or al contrast. Dose reduction technique was used on this scan by utilizing automated exposure control a nd iterative reconstruction technique. The dose-length product (DLP) was 171.21 mGy-cm. COMPARISON: 09/04/2023 Findings: Images through the lung bases reveal no abnormalities. There is no evidence of renal or ureteral calculi. The kidneys and the ureters are nondilated. The liver, spleen, and pancreas appear normal. Cholecystectomy clips noted. Stable nodular enlargemen t of the left adrenal gland. Stable mild prominence of the right adrenal gland. There is no aortic an eurysm. There is no evidence of bowel obstruction. Questionable wall thickening of the very distal rectum. Pr ominent stool suggests constipation. Images through the pelvis were performed. There is no evidence of ascites or lymphadenopathy. Urinary bladder unremarkable. Baez catheter is present, however the balloon is inflated at the region of th e bulbar urethra. No pelvic mass seen. Impression: Questionable wall thickening very distal rectum. Correlate with physical exam for any possibility of neoplastic lesion. Prominent stool suggests constipation. Baez catheter balloon is inflated in the region of the bulbar urethra. Deflation and repositioning o f the catheter is advised. Stable adrenal adenomas and/or adrenal hyperplasia. Reviewed, dictated and finalized at [facility]. Impression: Questionable wall thickening very distal rectum. Correlate with physical exam f or any possibility of neoplastic lesion. Prominent stool suggests constipation. Baez catheter balloon is inflated in the region of the bulbar urethra. Deflati on and repositioning of the catheter is advised. Stable adrenal adenomas and/or adrenal hyperplasia.
--- NOTE | 2023-10-16 01:24 | ED.GENADULT ---
HPI - General Adult General Chief complaint: Urogenital-Male <Magdalena Barker PA-C - Last Filed: 10/16/23 17:14> Stated complaint: URINARY RETENTION <Magdalena Barker PA-C - Last Filed: 10/16/23 17:14> Time Seen by Provider: 10/16/23 01:15 <Magdalena Barker PA-C - Last Filed: 10/16/23 17:14> History of Present Illness HPI narrative: 58-year-old male with history COPD presents to the emergency department via EMS from [facility] for decreased urine output for the past few days. [facility] was concerned that the patient has not had much urine output over the past [address] Baez catheter today and then became concerned when there is only 150 cc of urine output in the Baez bag. They sent the patient to the ED for further evaluation. the patient denies nausea or vomiting, fever, diarrhea. He reports dysuria since the catheter was placed. Denies hematuria. His last bowel movement was today and normal. He is reporting chronic abdominal pain which is unchanged from his baseline. No aggravating or alleviating factors. <Magdalena Barker PA-C - Last Filed: 10/16/23 17:14> Related Data Home medications: Home Medications Medication Instructions Recorded Confirmed acetaminophen 325 mg capsule 650 mg PO Q6H PRN Pain (Scale 02/18/21 10/16/23 (Tylenol) Score 1-3) Fleet Enema See Rx Instructions .Route .COMPLEX 01/10/23 10/16/23 yucvmz-kodriirr-ormdnuq 2 cap PO TIDWM 01/10/23 10/16/23 6,000-19,000-30,000 unit capsule,delayed rel (Creon) magnesium hydroxide 400 mg/5 mL 30 ml PO Q3-4D PRN Constipation 01/10/23 10/16/23 oral suspension (Milk of Magnesia) sennosides 8.6 mg-docusate sodium 2 tab-cap PO BID 01/10/23 10/16/23 50 mg tablet (Senna with Docusate Sodium) acetaminophen 650 mg rectal 650 mg RECTAL Q4H PRN Fever Or Pain 09/05/23 10/16/23 suppository albuterol sulfate 90 mcg/actuation 2 puff inhalation Q4H PRN 09/05/23 10/16/23 aerosol inhaler Shortness Of Breath Or Wheezing bisacodyl 10 mg rectal suppository 10 mg RECTAL DAILY PRN Constipation 09/05/23 10/16/23 budesonide-formoterol HFA 160 2 puff inhalation Q12H 09/05/23 10/16/23 mcg-4.5 mcg/actuation aerosol inhaler duloxetine 30 mg capsule,delayed 60 mg PO DAILY 09/05/23 10/16/23 release sprinkle famotidine 20 mg tablet 20 mg PO BID 09/05/23 10/16/23 hyoscyamine sulfate 0.125 mg tablet 0.125 mg PO Q4H PRN Secretions 09/05/23 10/16/23 omeprazole 20 mg capsule,delayed 20 mg PO DAILY 09/05/23 10/16/23 release polyethylene glycol 3350 17 gram 17 g PO DAILY 09/05/23 10/16/23 oral powder packet promethazine 12.5 mg tablet 12.5 mg PO Q6H PRN Nausea And 09/05/23 10/16/23 Vomiting <Magdalena Barker PA-C - Last Filed: 10/16/23 17:14> Allergies/adverse reactions: Allergies Allergy/AdvReac Type Severity Reaction Status Date / Time Penicillins Allergy Unknown Unknown Verified 10/16/23 08:20 <Magdalena Barker PA-C - Last Filed: 10/16/23 17:14> Review of Systems Review of Systems: All systems reviewed & are unremarkable except as noted in HPI and below <REYNALDO Calderón Last Filed: 10/16/23 17:14> [facility] Past Medical History Medical History: Medical History Abnormal CT scan, esophagus Anxiety Chronic diarrhea Hemorrhoids Seizure disorder <REYNALDO Calderón Last Filed: 10/16/23 17:14> Surgical History Surgical History: Surgical History History of cholecystectomy <REYNALDO Calderón Last Filed: 10/16/23 17:14> Family History Family History: Family History Father Acute myocardial infarction <Magdalena Barker PA-C - Last Filed: 10/16/23 17:14> Social History Social History: Social History (Reviewed 10/16/23 @ 07:39 by Zacarias Browning MD
[2023-10-16] MEDS: ACETAMINOPHEN 500 MG TABLET 1000 MG PO (01:36)
[2023-10-16] MEDS: SODIUM CHLORIDE 0.9% IV 1,000 ML 999 ML IV CONT ×2 (01:36→03:25)
[2023-10-16 01:44] LABS: Basophils Absolute Auto 0.1 K/mm3 (0.0-0.1); Basophils Percent Auto 0.8 % (0.2-1.2); Eosinophils Absolute Auto 0.2 K/mm3 (0-0.3); Eosinophils Percent Auto 2.6 % (0-4.4); Hemoglobin 11.9 g/dL (14.0-18.0); Immature Granulocyte Absolute 0.05 K/mm3 (0.00-0.031); Immature Granulocyte Percent A 0.5 % (0-0.5); Lymphocytes Absolute Auto 1.89 K/mm3 (0.9-3.2); Lymphocytes Percent Auto 20.4 % (18.3-44.2); Mean Corpuscular HGB Conc 32.2 g/dl (32-36); Mean Corpuscular Hemoglobin 30.6 pg (26-34); Mean Corpuscular Volume 95.1 fl (80-100); Mean Platelet Volume 8.5 fl (7.4-10.4); Monocytes Absolute Auto 0.9 K/mm3 (0.1-0.6); Monocytes Percent Auto 9.5 % (2.6-8.5); Neutrophils Absolute Auto 6.1 K/mm3 (1.3-6.7); Neutrophils Percent Auto 66.2 % (45.5-73.1); Platelet Count Result 279 k/mm3 (150-375); Red Blood Count 3.89 M/mm3 (4.6-6.20); White Blood Count 9.3 K/mm3 (4.5-10.0)
[2023-10-16 01:48] LABS: Appearance Urine Cloudy (Clear); Bacteria Urine None Seen /hpf; Bilirubin Urine 1+ (Negative); Blood Urine 2+ (Negative); Color Urine Dark Yellow (Yellow); Glucose Urine UA Negative (Negative); Ketones Urine Trace mg/dL (Negative); Leukocyte Esterase Ur Negative LEU/UL (Negative); Need Manual Microscopic Reviewed; Nitrate Urine Negative (Negative); Protein Urine 1+ mg/dL (Negative); RBC Urine >100 /hpf (0-2); Specific Grav Ur 1.039 (1.001-1.035); Squamous Epithelial Cell Urine None Seen /hpf (Few)
[2023-10-16 01:51] LABS: Amorphous Sediment Urine Few
[2023-10-16 01:52] LABS: Add Urine Microscopic? YES
[2023-10-16 01:56] LABS: Alanine Aminotransferase 14 U/L (6-50); Albumin Level 3.7 g/dL (3.5-5.1); Alkaline Phosphatase 54 U/L (38-126); Anion Gap 5 mmol/L (4-12); Aspartate Amino Transferase 19 U/L (17-59); Bilirubin,Total 0.2 mg/dL (0.2-1.3); Blood Urea Nitrogen 15 mg/dL (9-20); Calcium 8.6 mg/dL (8.4-10.2); Carbon Dioxide 33 mmol/L (22-30); Chloride 101 mmol/L (98-107); Estimated CRCL calculation 65 ml/min; Estimated Glomerular Filt Rate > 60; Glucose 101 mg/dL (65-110); Potassium 3.6 mmol/L (3.4-5.0); Sodium 139 mmol/L (137-145)
[2023-10-16 02:39] LABS: Lipase 85 U/L (23-300)
--- NOTE | 2023-10-16 03:25 | PC.NURSE ---
After pts CT showed distention of the bladder, this RN as well as Hunter Rn went to pt room to bladder scan pt. Pt was found to have >250 in bladder. Provider at bedside and attempted to advance pts rosenbaum catheter due to it not properly draining. At this time pt began bleeding from catheter insertion site. Rosenbaum catheter was removed and pt continued to bleed for around 5 minutes.
--- NOTE | 2023-10-16 07:37 | WPDURCON ---
Assessment and Plan Assessment and plan (1) Bleeding from the urethra: Code(s): N36.8 - Other specified disorders of urethra Status: Acute Assessment and Plan: From traumatic Baez catheter placement. With inability to replace at bedside and hematuria proceed with cystoscopy, clot evacuation, Baez catheter placement (2) Acute urinary retention: Code(s): R33.8 - Other retention of urine Status: Acute Assessment and Plan: Etiology is unclear. Patient unaware of who is managing catheter. Once he becomes more active can have voiding trials. Urology Consult Note HPI Date Seen: 10/16/23 Time Seen: 07:37 Requesting Physician: Zacarias Browning MD Primary Care Provider: Casey Plasencia, Consult Narrative Reason for consult: Urinary retention with traumatic Baez placement and hematuria Narrative: Ti Araujo is a 58 year old male who [facility] in a jail and has an indwelling Baez. It is unclear how long he has had or why he is having at current [facility]. Then last see had it changed at the jail. There was minimal drainage during presented to the emergency room. Turns out the balloon was inflated in the prostatic urethra. When they removed that he had gross bleeding present and the emergency room was unable to replace the catheter. Patient presents for cysto with clot evacuation Baez catheter placement. He will have voiding trials once he becomes more active. Review of Systems Review of Systems: All systems reviewed & are unremarkable except as noted in HPI and below PMFSH Past Medical History Medical History Abnormal CT scan, esophagus Anxiety Chronic diarrhea Hemorrhoids Seizure disorder Surgical History Surgical History History of cholecystectomy Family History Family History Father Acute myocardial infarction Social History Social History Smoking packs per day: 1 Smoking cigarettes per day: 20.0 Years smoked: 13 Smoking pack-years: 13.00 Smoking status: Current every day smoker Smoking end date: 03/19/15 Alcohol intake: never Substance use: never Substance use type: marijuana Do You Feel Safe in your Home?: Yes Lack of Transportation: No Lack of Food: Never True Current Housing: I Have Housing Concerned About Future Housing: No Difficulty Paying Gas/Electric Bills: No Difficulty Paying for Meds: No Currently Unemployed: No Education: High School Diploma/GED Difficulty w/ Childcare or Family Care: No Spiritual care concerns: No Meds Home Medications and Allergies Home Medications Medication Instructions Recorded Confirmed Type acetaminophen 325 mg capsule 650 mg PO Q6H PRN Pain (Scale 02/18/21 09/05/23 History (Tylenol) Score 1-3) Fleet Enema See Rx Instructions .Route .COMPLEX 01/10/23 09/05/23 History [id number]-ahemnvzh-oaikvjv 2 cap PO TIDWM 01/10/23 09/05/23 History 6,000-19,000-30,000 unit capsule,delayed rel (Creon) magnesium hydroxide 400 mg/5 mL 30 ml PO Q3-4D PRN Constipation 01/10/23 09/05/23 History oral suspension (Milk of Magnesia) sennosides 8.6 mg-docusate sodium 2 tab-cap PO BID 01/10/23 09/05/23 History 50 mg tablet (Senna with Docusate Sodium) acetaminophen 650 mg rectal 650 mg RECTAL Q4H PRN Fever Or Pain 09/05/23 09/05/23 History suppository albuterol sulfate 90 mcg/actuation 2 puff inhalation Q4H PRN 09/05/23 09/05/23 History aerosol inhaler Shortness Of Breath Or Wheezing bisacodyl 10 mg rectal suppository 10 mg RECTAL DAILY PRN Constipation 09/05/23 09/05/23 History budesonide-formoterol HFA 160 2 puff inhalation Q12H 09/05/23 09/05/23 History mcg-4.5 mcg/actuation aerosol inhaler duloxetine 30 mg
[2023-10-16] MEDS: LACTATED RINGERS 1,000 ML 30 ML IV CONT ×2 (08:00→09:53)
--- NOTE | 2023-10-16 08:01 | WPDANESEPPF ---
Anes - Initial Pre Proc Eval Procedure: Operation Date: 10/16/23 11:45 Proposed Procedures p Cystoscopy, Evacuation Bladder Clots - Zacarias Browning MD Date/Time: 10/16/23 08:01 Surgeon: Zacarias Browning MD Pre Op Diagnosis: URINARY RETENTION Patient Data Age: 58 Gender: M Height: 1.68 m Weight: 41.36 kg Last Vital Signs Temp 36.8 C 10/16/23 07:21 Pulse 91 10/16/23 07:21 Resp 16 10/16/23 07:21 BP 110/73 10/16/23 07:21 Pulse Ox 100 10/16/23 07:21 O2 Del Method Room Air 10/16/23 01:11 Allergies Allergy/AdvReac Type Severity Reaction Status Date / Time Penicillins Allergy Unknown Unknown Verified 09/04/23 16:48 Home Medications Medication Instructions Recorded Confirmed Type acetaminophen 325 mg capsule 650 mg PO Q6H PRN Pain (Scale 02/18/21 09/05/23 History (Tylenol) Score 1-3) Fleet Enema See Rx Instructions .Route .COMPLEX 01/10/23 09/05/23 History ujvcqu-suzfslhy-mijyygc 2 cap PO TIDWM 01/10/23 09/05/23 History 6,000-19,000-30,000 unit capsule,delayed rel (Creon) magnesium hydroxide 400 mg/5 mL 30 ml PO Q3-4D PRN Constipation 01/10/23 09/05/23 History oral suspension (Milk of Magnesia) sennosides 8.6 mg-docusate sodium 2 tab-cap PO BID 01/10/23 09/05/23 History 50 mg tablet (Senna with Docusate Sodium) acetaminophen 650 mg rectal 650 mg RECTAL Q4H PRN Fever Or Pain 09/05/23 09/05/23 History suppository albuterol sulfate 90 mcg/actuation 2 puff inhalation Q4H PRN 09/05/23 09/05/23 History aerosol inhaler Shortness Of Breath Or Wheezing bisacodyl 10 mg rectal suppository 10 mg RECTAL DAILY PRN Constipation 09/05/23 09/05/23 History budesonide-formoterol HFA 160 2 puff inhalation Q12H 09/05/23 09/05/23 History mcg-4.5 mcg/actuation aerosol inhaler duloxetine 30 mg capsule,delayed 60 mg PO DAILY 09/05/23 09/05/23 History release sprinkle famotidine 20 mg tablet 20 mg PO BID 09/05/23 09/05/23 History hyoscyamine sulfate 0.125 mg tablet 0.125 mg PO Q4H PRN Secretions 09/05/23 09/05/23 History omeprazole 20 mg capsule,delayed 20 mg PO DAILY 09/05/23 09/05/23 History release polyethylene glycol 3350 17 gram 17 g PO DAILY 09/05/23 09/05/23 History oral powder packet promethazine 12.5 mg tablet 12.5 mg PO Q6H PRN Nausea And 09/05/23 09/05/23 History Vomiting hydromorphone 1 mg/mL oral liquid 2 mg (2 mL) PO Q4H PRN Pain #473 mL 09/06/23 Rx lorazepam 1 mg tablet 1 mg PO Q4H PRN Anxiety #6 tabs 09/06/23 Rx methadone 5 mg tablet 7.5 mg PO TID Chronic Pain #7 tabs 09/06/23 Rx Laboratory Tests 10/16/23 10/16/23 01:20 01:38 WBC 9.3 K/mm3 (4.5-10.0) RBC 3.89 L M/mm3 (4.6-6.20) Hgb 11.9 L g/dL (14.0-18.0) Hct 37.0 L % (42.0-52.0) MCV 95.1 fl (80-100) MCH 30.6 pg (26-34) MCHC 32.2 g/dl (32-36) RDW 14.0 % (11.5-14.5) Plt Count 279 k/mm3 (150-375) MPV 8.5 fl (7.4-10.4) Immature Gran % (Auto) 0.5 % (0-0.5) Neut % (Auto) 66.2 % (45.5-73.1) Lymph % (Auto) 20.4 % (18.3-44.2) [place] % (Auto) 9.5 H % (2.6-8.5) Eos % (Auto) 2.6 % (0-4.4) Baso % (Auto) 0.8 % (0.2-1.2) Lymph # (Auto) 1.89 K/mm3 (0.9-3.2) [place] # (Auto) 0.9 H K/mm3 (0.1-0.6) Eos # (Auto) 0.2 K/mm3 (0-0.3) Baso # (Auto) 0.1 K/mm3 (0.0-0.1) Abs Immat Gran (auto) 0.05 H K/mm3 (0.00-0.031) Absolute Neuts (auto) 6.1 K/mm3 (1.3-6.7) Absolute Nucleated RBC 0.000 K/mm3 (0.0-0.012) Nucleated RBC % 0.0 % (0.0-0.2) Sodium 139 mmol/L (137-145) Potassium 3.6 mmol/L (3.4-5.0) Chloride 101 mmol/L (98-107) Carbon Dioxide 33 H mmol/L (22-30) Anion Gap 5 mmol/L (4-12) BUN 15 mg/dL (9-20) Creatinine 0.60 L mg/dL (0.7-1.3) Estim Creat Clear Calc 65 ml/min Estimated GFR > 60 (59 - ) Glucose 101 m
--- NOTE | 2023-10-16 08:57 | WPDHPUPDATE1 ---
History and Physical Update Update Date/Time: 10/16/23 08:57 History and Physical has been reviewed, including an updated exam of the patient. There are NO changes in the patient's condition. Risks, benefits, and alternatives have been discussed and questions answered. Patient agrees to proceed with procedure.
[2023-10-16] MEDS: ceFAZolin SODIUM 1 GM VIAL 2 GM IV PUSH (09:07)
[2023-10-16] MEDS: LIDOCAINE HCL 2% GEL UROJET 10 ML PKG MUCOUS MEM (09:08)
--- NOTE | 2023-10-16 09:20 | P.OP_ITS ---
Procedure Note - Detailed Date of Procedure 10/16/23 Pre-op Diagnosis URINARY RETENTION, traumatic Baez placement, hematuria Post-op Diagnosis Same Procedure Performed Cystoscopy, clot evac, complex Baez catheter placement 16 [place] tip Surgeon Zacarias Browning MD Anesthesia General Description of Procedure Patient was taken to the operative suite correctly identified. Once anesthesia was obtained was prepped and draped usual sterile fashion. Twenty-two Sammarinese scope was inserted into the urethra. He had a clot in the urethra extending to the bladder neck. Using a grasper we retrieved this clot. Inspection reveals trauma to the prostatic urethra from the inflated balloon. The prostate did not appear overly obstructive. The bladder itself was without any evidence of tumors or irregularities. At this point time a Sensor wire was inserted into the bladder. Scope was removed. 2% viscous lidocaine was inserted into the urethra. Sixteen [place] tip catheter was passed over the wire into the bladder. 10 cc were placed in balloon. This was connected to gravity drainage. He is taken recovery stable condition go back to the residential. Will delineate the etiology of his need for a Baez catheter and plan on a voiding trial in a couple of weeks. This completes dictation. Please send a copy of op note to my office. Estimated Blood Loss 0 Drains Yes Packing No Pathology None sent Complications No immediate complications Condition Stable Disposition PACU
[2023-10-16] MEDS: oxyCODONE HCL (*CRX) 5 MG TAB IR PO (10:55)
--- NOTE | 2023-10-16 11:48 | SUR.PHASEII ---
[facility] here to transport patient at 1140. Report given to Malcolm at [facility].
== END 2023-10-16 11:40 ==
LOC: ANHED 05:30 → ANHSURGERY 06:25
PROVIDERS: Physician Assistant; Emergency Provider Student in an Organized Health Care Education/Training Program; PCP Internal Medicine; Visit Provider Urology
PROC: 0TCB8ZZ Extirpation of Matter from Bladder, Via Natural or Artificial Opening Endoscopic (ICD-10-PCS; CPT 52001; principal; 2023-10-16 11:45)
DX: S37.39XA Other injury of urethra, initial encounter (principal); R33.8 Other retention of urine; T83.83XA Hemorrhage due to genitourinary prosthetic devices, implants and grafts, initial encounter; Y84.6 Urinary catheterization as the cause of abnormal reaction of the patient, or of later complication, without mention of misadventure at the time of the procedure; J44.9 Chronic obstructive pulmonary disease, unspecified; F41.9 Anxiety disorder, unspecified; Z79.51 Long term (current) use of inhaled steroids; Z87.891 Personal history of nicotine dependence; K59.00 Constipation, unspecified
CPT/HCPCS: 52001; 36415; 74176; 80053; 81001; 83690; 85025; 87086; 96360; 96361; 99285; A9270; C1769; J0690; J2405; J2704; J3010; J7030; J7120

== ENCOUNTER 2024-01-11 10:56 | Emergency (ER) | payer OTHER, SELFPAY ==
[2024-01-11] VITALS (12 sets, daily range): BP systolic 98–115; BP diastolic 62–78; PULSE 92–103; RESP 12–20; TEMP 36.4–36.8; O2SAT 98–100
--- NOTE | ~2024-01-11 | XR_ITS ---
XR chest 2V 01/11/2024 12:05 Indication: Chest pain Procedure: 2 view chest Comparison: Comparison to multiple prior studies sequentially, with oldest reviewed study dated 02/18. Findings: Heart size normal. No focal air space disease, pulmonary edema, pleural effusion or suspect ed pneumothorax. The lungs are hyperinflated which is consistent with, but not diagnostic of chronic obstructive pulmonary disease. Impression: 1: No acute cardiopulmonary disease. Reviewed, dictated and finalized at location B. Impression: 1: No acute cardiopulmonary disease.
--- NOTE | ~2024-01-11 | XR_ITS ---
XR abdomen/kub 1V 01/11/2024 13:20 INDICATION: Constipation TECHNIQUE: KUB COMPARISON: None FINDINGS: Bowel gas pattern is normal. Moderate colonic fecal loading. There is cholecystectomy clips . There is no evidence of free air, mass, organomegaly, ascites or obstruction. No abnormal calculi are seen. The bones appear intact. IMPRESSION: 1: No acute abdominal abnormality identified. Reviewed, dictated and finalized at location B.
--- NOTE | 2024-01-11 11:34 | ECG_ITS ---
Test Date: 2024-01-11 11:40:28 Measurements Intervals [place] Rate: 93 P: -76 [place]: 126 QRS: 79 QRSD: 81 T: 64 QT: 337 QTc: 420 Interpretive Statements SUSPECT ECTOPIC ATRIAL RHYTHM NONSPECIFIC ST AND T-WAVE ABNORMALITY No previous ECG available for comparison Electronically Signed On 01-11-2024 15:37:54 CDT by Ольга Vigil M.D.
[2024-01-11 12:39] LABS: Basophils Absolute Auto 0.1 K/mm3 (0.0-0.1); Eosinophils Absolute Auto 0.1 K/mm3 (0-0.3); Eosinophils Percent Auto 1.4 % (0-4.4); Hemoglobin 11.9 g/dL (14.0-18.0); Immature Granulocyte Absolute 0.02 K/mm3 (0.00-0.031); Immature Granulocyte Percent A 0.3 % (0-0.5); Lymphocytes Absolute Auto 1.27 K/mm3 (0.9-3.2); Mean Corpuscular HGB Conc 32.2 g/dl (32-36); Mean Corpuscular Hemoglobin 27.9 pg (26-34); Mean Corpuscular Volume 86.9 fl (80-100); Mean Platelet Volume 8.8 fl (7.4-10.4); Monocytes Absolute Auto 0.5 K/mm3 (0.1-0.6); Monocytes Percent Auto 8.8 % (2.6-8.5); Neutrophils Absolute Auto 3.8 K/mm3 (1.3-6.7); Neutrophils Percent Auto 66.5 % (45.5-73.1); Platelet Count Result 333 k/mm3 (150-375); Red Blood Count 4.26 M/mm3 (4.6-6.20); Red Cell Distribution Width 15.3 % (11.5-14.5); White Blood Count 5.8 K/mm3 (4.5-10.0)
[2024-01-11 12:40] LABS: Prothrombin Time 13.6 Seconds (11.1-14.7)
[2024-01-11 12:41] LABS: Partial Thromboplastin Time 29.1 Seconds (22.3-36.8)
[2024-01-11 12:45] LABS: Alanine Aminotransferase 10 U/L (6-50); Albumin Level 4.6 g/dL (3.5-5.1); Alkaline Phosphatase 56 U/L (38-126); Anion Gap 10 mmol/L (4-12); Aspartate Amino Transferase 20 U/L (17-59); Bilirubin,Total 0.4 mg/dL (0.2-1.3); Blood Urea Nitrogen 14 mg/dL (9-20); Calcium 9.2 mg/dL (8.4-10.2); Carbon Dioxide 26 mmol/L (22-30); Chloride 105 mmol/L (98-107); Estimated CRCL calculation 69 ml/min; Estimated Glomerular Filt Rate > 60; Glucose 82 mg/dL (65-110); Lipase 85 U/L (23-300); Potassium 4.2 mmol/L (3.4-5.0); Sodium 141 mmol/L (137-145)
[2024-01-11 12:56] LABS: Troponin I < 0.012 ng/mL (0.000-0.034)
--- NOTE | 2024-01-11 13:12 | ED.CHESTPAIN ---
HPI - Chest Pain General Chief Complaint: Chest Pain Stated Complaint: CP x 2 days Time Seen by Provider: 01/11/24 11:57 History of Present Illness HPI narrative: Patient is a 58-year-old male who presents ER with chest pain. Ongoing since yesterday. Left-sided and worse when he eats and drinks. Described as aching/fullness. Associated with constipation as he has not had a bowel movement last 2 days. Denies fevers or chills or sweats. No exertional chest discomfort but he is bound to a wheelchair due to chronic weakness. No history of heart disease. No fevers or chills or sweats. Denies dyspnea. Related Data Home Medications Medication Instructions Recorded Confirmed acetaminophen 325 mg capsule 650 mg PO Q6H PRN Pain (Scale 02/18/21 10/16/23 (Tylenol) Score 1-3) Fleet Enema See Rx Instructions .Route .COMPLEX 01/10/23 10/16/23 [id number]-kebhaigc-bqzozcd 2 cap PO TIDWM 01/10/23 10/16/23 6,000-19,000-30,000 unit capsule,delayed rel (Creon) magnesium hydroxide 400 mg/5 mL 30 ml PO Q3-4D PRN Constipation 01/10/23 10/16/23 oral suspension (Milk of Magnesia) sennosides 8.6 mg-docusate sodium 2 tab-cap PO BID 01/10/23 10/16/23 50 mg tablet (Senna with Docusate Sodium) acetaminophen 650 mg rectal 650 mg RECTAL Q4H PRN Fever Or Pain 09/05/23 10/16/23 suppository albuterol sulfate 90 mcg/actuation 2 puff inhalation Q4H PRN 09/05/23 10/16/23 aerosol inhaler Shortness Of Breath Or Wheezing bisacodyl 10 mg rectal suppository 10 mg RECTAL DAILY PRN Constipation 09/05/23 10/16/23 budesonide-formoterol HFA 160 2 puff inhalation Q12H 09/05/23 10/16/23 mcg-4.5 mcg/actuation aerosol inhaler duloxetine 30 mg capsule,delayed 60 mg PO DAILY 09/05/23 10/16/23 release sprinkle famotidine 20 mg tablet 20 mg PO BID 06/19/24 07/30/24 hyoscyamine sulfate 0.125 mg tablet 0.125 mg PO Q4H PRN Secretions 09/05/23 10/16/23 omeprazole 20 mg capsule,delayed 20 mg PO DAILY 09/05/23 10/16/23 release polyethylene glycol 3350 17 gram 17 g PO DAILY 09/05/23 10/16/23 oral powder packet promethazine 12.5 mg tablet 12.5 mg PO Q6H PRN Nausea And 09/05/23 10/16/23 Vomiting Allergies Allergy/AdvReac Type Severity Reaction Status Date / Time Penicillins Allergy Unknown Unknown Verified 10/16/23 08:20 Review of Systems Review of Systems: All systems reviewed & are unremarkable except as noted in HPI and below Constitutional: Constitutional: Reports no additional constitutional complaints ENT: Reports system reviewed and no additional complaints, except as documented Cardiovascular: Cardiovascular: Reports no additional cardiovascular complaints Respiratory: Respiratory: Reports no additional respiratory complaints Musculoskeletal: Musculoskeletal: Reports no additional musculoskeletal complaints PMFSH Past Medical History Medical History Abnormal CT scan, esophagus Anxiety Chronic diarrhea Hemorrhoids Seizure disorder Surgical History Surgical History History of cholecystectomy Family History Family History Father Acute myocardial infarction Social History Social History Smoking packs per day: 1 Smoking cigarettes per day: 20.0 Years smoked: 13 Smoking pack-years: 13.00 Smoking status: Current every day smoker Smoking end date: 03/19/15 Alcohol intake: never Substance use: never Substance use type: marijuana Do You Feel Safe in your Home?: Yes Lack of Transportation: No Lack of Food: Never True Current Housing: I Have Housing Concerned About Future Housing: No Difficulty Paying Gas/Electric Bills: No Difficulty Paying for Meds: No Currently Unemployed: No Education: High School Diploma/GED Difficulty w/ Childcare or Family Care: No Spiritual care concerns: No Exam Narrative: GENERAL: Well-appearing, thin, and in no acute distress. HEAD: Normocephalic, atraumatic. EYES: PERRL and EOMI. ENT: Mucous membranes moist. CHEST: Clear to auscultation. No respiratory distress. HEART: Regular rate and rhythm. Normal peripheral pulses. ABDOMEN: Soft, nontender, nondistended. EXTREMITIES: Normal range of motion. No edema. SKIN: Warm, dry, no rash. NEURO: Alert and oriented x3. PSYCH: Normal mood and affect. Course Course Emergency Course: Labs within normal limits. Troponin negative x2. EKG with nonspecific ST changes. Appropriate for discharge home. Vital Signs Vital signs: Vital Signs Pulse Rate 103 H 01/11/24 11:16 Respiratory Rate 15 01/11/24 11:16 Blood Pressure 101/71 01/11/24 11:16 Pulse Oximetry 98 01/11/24 11:16 Temperature 97.9 F 01/11/24 13:16 Pulse Rate 92 01/11/24 13:16 Respiratory Rate 13 01/11/24 13:16 Blood Pressure 105/62 01/11/24 13:16 Pulse Oximetry 99 01/11/24 13:16 Oxygen Delivery Room Air 01/11/24 11:42 MDM - Chest Pain Lab Data 01/11/24 12:23 01/11/24 12:23 Labs: Lab Results 01/11/24 01/11/24 01/11/24 Range/Units 12:22 12:23 14:53 WBC 5.8 (4.5-10.0) K/mm3 RBC 4.26 L (4.6-6.20) M/mm3 Hgb 11.9 L (14.0-18.0) g/dL Hct 37.0 L (42.0-52.0) % MCV 86.9 (80-100) fl MCH 27.9 (26-34) pg MCHC 32.2 (32-36) g/dl RDW 15.3 H (11.5-14.5) % Plt Count 333 (150-375) k/mm3 MPV 8.8 (7.4-10.4) fl Immature Gran % (Auto) 0.3 (0-0.5) % Neut % (Auto) 66.5 (45.5-73.1) % Lymph % (Auto) 22.0 (18.3-44.2) % [place] % (Auto) 8.8 H (2.6-8.5) % Eos % (Auto) 1.4 (0-4.4) % Baso % (Auto) 1.0 (0.2-1.2) % Lymph # (Auto) 1.27 (0.9-3.2) K/mm3 [place] # (Auto) 0.5 (0.1-0.6) K/mm3 Eos # (Auto) 0.1 (0-0.3) K/mm3 Baso # (Auto) 0.1 (0.0-0.1) K/mm3 Abs Immat Gran (auto) 0.02 (0.00-0.031) K/mm3 Absolute Neuts (auto) 3.8 (1.3-6.7) K/mm3 Absolute Nucleated RBC 0.000 (0.0-0.012) K/mm3 Nucleated RBC % 0.0 (0.0-0.2) % PT 13.6 (11.1-14.7) Seconds INR 1.0 APTT 29.1 (22.3-36.8) Seconds Sodium 141 (137-145) mmol/L Potassium 4.2 (3.4-5.0) mmol/L Chloride 105 (98-107) mmol/L Carbon Dioxide 26 (22-30) mmol/L Anion Gap 10 (4-12) mmol/L BUN 14 (9-20) mg/dL Creatinine 0.60 L (0.7-1.3) mg/dL Estim Creat Clear Calc 69 ml/min Estimated GFR > 60 (59 - ) Glucose 82 (65-110) mg/dL Calcium 9.2 (8.4-10.2) mg/dL Total Bilirubin 0.4 (0.2-1.3) mg/dL AST 20 (17-59) U/L ALT 10 (6-50) U/L Alkaline Phosphatase 56 (38-126) U/L Troponin I < 0.012 < 0.012 (0.000-0.034) ng/mL Total Protein 8.0 (6.3-8.2) g/dL Albumin 4.6 (3.5-5.1) g/dL Lipase 85 (23-300) U/L ECG Data EKG #1: ECG completion date: 01/11/24 ECG completion time: 11:40 EKG Interpretation: normal rate (93), sinus rhythm, non-specific ST changes, normal QRS, normal QT and NL axis Discharge Plan Discharge Clinical Impression: Chest pain Patient Disposition: Home, Self-Care Condition: Stable Instructions: Chest Pain (ED) Additional Instructions: Please return to the emergency department if you develop severe and persistent chest pain, difficulty breathing, dizziness, leg swelling or if you are coughing up blood as these can be signs of a medical emergency. Please call your doctor for a follow up appointment to determine the need for further testing. Prescriptions: No Action magnesium hydroxide [Milk of Magnesia] 400 mg/5 mL Suspension 30 ml PO Q3-4D PRN (Reason: Constipation) Rx Instructions: Give every 3 days of no bowel movement in that time. Fleet Enema See Rx Instructions .ROUTE .COMPLEX Rx Instructions: 1 unit rectally if no results from suppository Creon 6,000-19,000 -30,000 unit capsule,delayed release(DR/EC) 2 cap PO TIDWM sennosides-docusate sodium [Senna with Docusate Sodium] 8.6-50 mg Tablet 2 tab-cap PO BID acetaminophen 650 mg Suppository 650 mg RECTAL Q4H PRN (Reason: Fever Or Pain) bisacodyl 10 mg Suppository 10 mg RECTAL DAILY PRN (Reason: Constipation) duloxetine 30 mg Capsule, Delayed Rel Sprinkle 60 mg PO DAILY polyethylene glycol 3350 17 gram Powder In Packet 17 g PO DAILY famotidine 20 mg Tablet 20 mg PO BID hyoscyamine sulfate 0.125 mg Tablet 0.125 mg PO Q4H PRN (Reason: Secretions) omeprazole 20 mg Capsule,Delayed Release(Dr/Ec) 20 mg PO DAILY promethazine 12.5 mg Tablet 12.5 mg PO Q6H PRN (Reason: Nausea And Vomiting) budesonide-formoterol 160-4.5 mcg/actuation Hfa Aerosol Inhaler 2 puff INHALATION Q12H albuterol sulfate 90 mcg/actuation HFA aerosol inhaler 2 puff INHALATION Q4H PRN (Reason: Shortness Of Breath Or Wheezing) lorazepam 1 mg Tablet 1 mg PO Q4H PRN (Reason: Anxiety) Qty: 6 0RF methadone 5 mg Tablet 7.5 mg PO TID Qty: 7 0RF hydromorphone 1 mg/mL Liquid 2 mg PO Q4H PRN (Reason: Pain) Qty: 473 0RF acetaminophen [Tylenol] 325 mg Capsule 650 mg PO Q6H PRN (Reason: Pain (Scale Score 1-3)) Follow-up/Referrals: Luis Angel,MD Casey [Primary Care Provider] - 1 Week Quality HEART score for chest pain patients History: slightly suspicious ECG: non specific repolarization disturbance/LBTB/PM Age: > 45 and < 65 years Risk factors: 1 or 2 risk factors Troponin: < or = to 1x normal limit Heart score: 3
--- NOTE | 2024-01-11 15:01 | ECG_ITS ---
Test Date: 2024-01-11 15:15:34 Measurements Intervals [place] Rate: 87 P: 80 PA: 107 QRS: 76 QRSD: 88 T: 75 QT: 289 QTc: 348 Interpretive Statements SINUS RHYTHM WITH SHORT PA INTERVAL NONSPECIFIC T-WAVE ABNORMALITY ABNORMAL ECG Compared to ECG 01/11/2024 11:40:28 Short PA interval now present Ectopic atrial rhythm no longer present T-wave abnormality still present Electronically Signed On 01-12-2024 13:06:55 CDT by Matt Chandra M.D.
[2024-01-11 15:25] LABS: Troponin I < 0.012 ng/mL (0.000-0.034)
== END 2024-01-11 17:30 | disposition home or self-care (01) ==
PROVIDERS: Student in an Organized Health Care Education/Training Program; Emergency Provider Emergency Medicine; PCP Internal Medicine
DX: R07.9 Chest pain, unspecified (principal); G40.909 Epilepsy, unspecified, not intractable, without status epilepticus; Z90.49 Acquired absence of other specified parts of digestive tract; Z87.891 Personal history of nicotine dependence; R94.31 Abnormal electrocardiogram [ECG] [EKG]
CPT/HCPCS: 36415; 71046; 74018; 80053; 83690; 84484; 85025; 85610; 85730; 93005; 99284

== ENCOUNTER 2024-06-16 11:34 | Emergency (ER) | payer OTHER, SELFPAY ==
--- NOTE | ~2024-06-16 | CT_ITS ---
EXAMINATION: CT abdomen pelvis wo con DATE: 06/16/2024 16:39 INDICATION: Hematuria. TECHNIQUE: Computed tomography (CT) of the abdomen and pelvis was performed without intravenous contr ast. Automated exposure control and iterative reconstruction technique were employed. The dose-length product was 185.01 mGy-cm. COMPARISON: CT abdomen and pelvis 10/16/2023 FINDINGS: The visualized portions of the lung bases demonstrate mild atelectasis. No pleural effusion . The heart size is normal. No pericardial effusion. The liver and spleen are normal. There are barajas es of cholecystectomy. The pancreas is normal. There are masses in the adrenal glands measuring up to 18 mm on the left measuring low attenuation without change, consistent with adenomas. The kidneys ar e normal. There is no urolithiasis. There is diverticulosis of the colon without evidence of divertic ulitis. There are no dilated loops of bowel. The appendix is normal. There are no pathologically enla rged lymph nodes. There is no free intraperitoneal fluid. The prostate is mildly enlarged. There is m ild lumbar spondylosis. IMPRESSION: 1. No etiology for hematuria. Reviewed, dictated and finalized at location A.
--- NOTE | ~2024-06-16 | XR_ITS ---
EXAMINATION: XR hip RT 2V w AP pelvis DATE: 06/16/2024 14:37 INDICATION: Right lower limb pain. TECHNIQUE: An anteroposterior view of the pelvis and 2 views of right hip were obtained. COMPARISON: None. FINDINGS: Alignment is normal. No fracture. There is moderate osteoarthritis of the hips. IMPRESSION: 1. Moderate osteoarthritis of the hips. Reviewed, dictated and finalized at location A.
[2024-06-16 11:39] VITALS: BP 102/61; PULSE 110; RESP 16; TEMP 36.4; O2SAT 100
--- OUTSIDE RECORDS SUMMARY | 2024-06-16 13:07 | XMS_ITS | Referral Summary ---
Author Organization [facility] Address [address] [place] [address] Care Team Providers Care Geospatial Image Analyst Name Role Phone Jessica Rushing MD Primary Care Provider [phone] Allergies Active Allergy Reactions Criticality Noted Date Comments Penicillins Hives Medium 06/20/2018 Medications LORazepam (ATIVAN) 0.5 mg tablet Take 1 tablet (0.5 mg total) by mouth every 2 (two) hours as needed for anxiety (FOR ANXIETY OR SHORTNESS OF BREATH. MAY REPEAT ONCE AFTER ONE HOUR IF SYMPTOMS PERSIST . CALL HOSPICE FOR NO RELIEF) 30 tablet 11/10/19 22 Active hyoscyamine (LEVSIN) 0.125 mg SL tablet Take 1 tablet (0.125 mg total) by mouth every 4 (four) hours as needed (ORAL SECRETIONS) 8 tablet 11/10/19 22 Active bisacodyL (DULCOLAX) 10 mg suppository Insert 1 suppository (10 mg total) into the rectum daily as needed for constipation 2 suppository 11/10/19 22 Active acetaminophen (TYLENOL) 650 mg suppository Insert 1 suppository (650 mg total) into the rectum every 4 (four) hours as needed for fever (FOR FEVER > 101) 3 suppository 11/10/[address] (CYMBALTA) 30 mg capsule Take 1 capsule (30 mg total) by mouth daily 30 capsule 1 11/11/19 Active pancrelipase (CREON) 6,000 units of lipase capsule Take 2 capsules (12,000 units of lipase total) by mouth 3 (three) times a day with meals 60 capsule 11/10/19 Active oxygenIndication s:Dyspnea,shortn ess of breath Administer 2-4 L/min into each nostril as needed (shortness of breath). Indications: trouble breathing, shortness of breath 11/10/19 Active morphine ER (MS CONTIN) 15 mg 12 hr tabletIndication s:severe chronic pain requiring long-term opioid treatment Take 30 mg by mouth 2 (two) times a day. Indications: severe chronic pain requiring long-term opioid treatment 11/12/19 Active ondansetron (ZOFRAN) 4 mg tabletIndication s:nausea and vomiting Take 4 mg by mouth 2 (two) times a day. Indications: nausea and vomiting Active morphine 20 mg/mL concentrated solution Take 0.5 mL (10 mg total) by mouth every hour as needed for pain TAKE 0.5ML (10MG) BY MOUTH EVERY HOUR NEEDED FOR PAIN OR SHORTNESS OF BREATH. 30 mL 12/03/19 Active lactulose solution 10 gram/15mL Take 30 mL (20 g total) by mouth 3 (three) times a day 150 mL 12/30/19 Active tamsulosin (FLOMAX) 0.4 mg extended release capsuleIndicatio ns:Benign prostatic hyperplasia with weak urinary stream Take 1 capsule (0.4 mg total) by mouth daily 90 capsule 3 12/28/19 Active Active Problems Problem Noted Date Diagnosed Date Fecal impaction 12/28/2021 Assessment & Plan (12/28/2021 9:38 AM CDT): Pt reports not having bowel movement in jail [place] 1[facility] demonstrated generalized dilatation of small and large bowel, favoring generalized ileus, and a large amount of stool in the colon and rectum. BS + and has since passed BM from laxatives in ED. Has been on morphine which likely contributed to his constipation. - Lactulose TID to continue BM Lab test positive for detection of COVID-19 viru s 11/09/2021 Somatic symptom disorder, pe rsistent, severe, with predominant pain 11/04/2021 Failure to thrive in adult 11/04/2021 Assessment & Plan (12/28/2021 9:34 AM CDT): See assessment and plan under 'Cachexia'. Chronic intractable pain 11/04/2021 Assessment & Plan (12/28/2021 9:38 AM CDT): See assessment and plan under 'Cachexia'. MDD (major depressive disorder) 11/01/2021 Assessment & Plan (12/28/2021 9:34 AM CDT): Pt controlled on duloxetine. Urinary retention 10/20/2021 Cachexia 10/19/2021 Assessment & Plan (12/28/2021 9:32 AM CDT): 56yo male with cachexia, failure to thrive as adult and chronic intractable pain of unclear etiology. Chronic issue for past 15 years. Differential diagnoses were depression vs. somatic symptom disorder vs. anorexia vs. illness dysphagia. In previous admission in October 2021, patient had been refusing nutrition both orally and TPN. -TTG IgA was wnl and endomysial antibody negative 10/24. -TSH level was normal. Serum lipase was normal. -Extensive workup with GI was unremarkable in previous admission. - 11/04, the patient elected to become DNR and hospice was consulted. - Hospice initiated prn ativan for anxiety and reg/prn morphine for pain Adrenal adenoma, left 07/14/2019 Axillary lymphadenopathy 06/24/2019 Overview (06/24/2019): Added automatically from request for surgery [id number] Assessment & Plan (06/24/2019 4:33 PM CDT): Oncology requesting excisional biopsy, given the concern for malignancy, excisional biopsy may prove more beneficial for specimen selection/size. Will need medical clearance and PAT, patient does have malnutrition and COPD, will plan Left axillary node excision with mac and local. Severe protein-calorie malnutrition (CMS/HCC) Assessment & Plan (12/28/2021 9:32 AM CDT): See assessment and plan under 'Cachexia'. Normocytic anemia 03/16/2019 Assessment & Plan (12/28/2021 9:39 AM CDT): Hb 11.9; highest since Oct 2021. Normocytic Assessment & Plan (06/04/2019 11:01 AM CDT): Noted iron deficiency but no definite GI bleeding noted. Continue iron supplements. Continue multivitamins daily. Follow up in our office in 3 months. Assessment & Plan (04/08/2019 11:51 AM TRIMMING CASER): Pt had EGD/colon and multiple imaging with no findings explaining anemia. Will schedule for small bowel capsule endoscopy to complete work up. Assessment & Plan (03/16/2019 4:50 AM TRIMMING CASER): Patient had a hemoglobin of 16.3 in June. He denies bleeding anywhere. He states he follows with GI in [place] and had an EGD and colonoscopy 8 months ago. Will need to obtain records. Suspect iron deficient anemia. Iron profile is in process. Will give 1 time dose of Ferrlecit for now as patient has not received PRBCs due to antibodies and is awaiting for PRBCs from [place]. GI has been consulted, will await their evaluation. Will order a peripheral smear. There is concern for possible malignancy given patient's constellation of symptoms and this was discussed with patient. Patient does have a mildly enlarged prostate on CT scan, will check a PSA. Unintentional weight loss 03/16/2019 Assessment & Plan (06/04/2019 11:00 AM CDT): His weight has been stable over the last month. Still no organic pathology has been noted. Most positive finding was axillary lymph nodes and he is following with hematology for possible biopsy. Assessment & Plan (04/08/2019 11:49 AM TRIMMING CASER): So far, unable to find explanation for weight loss. He had multiple imaging, celiac testing, CEA, CA19-9, alpha feto protein, EGD/colon and no explanation for weight loss. Pt denies drug use or alcohol use. He says he did drink occasionally prior to hospitalization but does not drink anymore. He does smoke cigarettes. Pt says he has lost approximately 40lbs in 1-2 years. Assessment & Plan (03/16/2019 4:53 AM TRIMMING CASER): Over the last 2-3 years. Patient states he has early satiety. Will consult dietitian for malnutrition evaluation. Will check a TSH. Tobacco abuse 03/16/2019 Assessment & Plan (06/04/2019 11:01 AM CDT): Chronic smoking can contribute to weight loss and the main nutrition and also makes him at risk for different malignancies. I discussed with the patient strongly to stop smoking. Assessment & Plan (03/16/2019 4:42 AM TRIMMING CASER): Nicotine patch has been ordered Lactic acidosis 03/16/2019 Assessment & Plan (03/16/2019 4:48 AM TRIMMING CASER): Suspect this is due to severe anemia. Lower abdominal pain 2019 Overview (03/16/2019): Added automatically from request for surgery [id number] Assessment & Plan (04/08/2019 11:51 AM TRIMMING CASER): Constant aching and sometimes cramping abdominal pain in lower abdomen ongoing for several years. Multiple imaging and EGD/colonoscopy with no explanation of abdominal pain. Pt has history of hernia repair with mesh. He says he had to have the mesh taken out due to poor reaction. Possible this is neuropathic pain. Constipation Resolved Problems Problem Noted Date Diagnosed Date Resolved Date Folate deficiency 11/01/2021 12/28/2021 Current moderate episode of major depressive disorder without prior episode 10/29/2021 Pilonidal cyst with abscess 10/19/2021 11/01/2021 SBO (small bowel obstruction) 10/18/2021 10/30/2021 Lower abdominal pain 10/18/2021 022 Abdominal pain 03/16/2019 11/01/2021 Assessment & Plan (06/04/2019 10:59 AM CDT): Patient has mild abdominal cramping symptoms at this time. GI evaluation so far has been nonconclusive. Assessment & Plan (03/16/2019 4:42 AM TRIMMING CASER): Chronic issue. Patient states he is followed by GI in [place]. Abdominal pain appears to be in the right upper quadrant, umbilical region and suprapubic region. Will check a bladder scan to rule out urinary retention. Patient states Gas-X sometimes helps with his abdominal pain, will order p.r.n. Simethicone. Continue to monitor. Drug-induced neutropenia Leukopenia 12/28/2021 Hyponatremia 12/28/2021 Immunizations Immunization Administration Dates Next Due Influenza, Quadrivalent, Spl it, Preservative Free, Intramuscular 03/22/2019 Social History Tobacco Use Types Packs/Day Years Used Date Smoking Tobacco: Every Day Cigarettes 0.5 16 Smokeless Tobacco: Never Tobacco Cessation:Ready to Q uit: No; Counseling Given: No Alcohol Use Standard Drinks/Week Comments Not Currently 0 (1 standard drink = 0.6 oz pur e alcohol) Social Connection and Isolat ion Panel [NHANES] Answer Date Recorded In a typical week, how many times do you talk on the phone with family, friends, or neighbors? More than three times a week 12/28/2021 How often do you get togethe r with friends or relatives? Once a week 12/28/2021 How often do you attend [facility] or faith services? Never 12/28/2021 Do you belong to any clubs o r organizations such as yazidism groups, unions, fraternal or athletic groups, or school groups? No 12/28/2021 How often do you attend meet ings of the clubs or organizations you belong to? Never 12/28/2021 Are you , , di vorced, , never , or living with a partner? Never 12/28/2021 AUDIT-C Answer Date Recorded Q1: How often do you have a drink containing alcohol? Never 10/18/2021 Q2: How many drinks containi ng alcohol do you have on a typical day when you are drinking? Patient does not drink Q3: How often do you have si x or more drinks on one occasion? Never 10/18/2021 Overall Financial Resource Strain (CARDIA) Answe r Date Recorded How hard is it for you to pa y for the very basics like food, housing, medical care, and heating? Not hard at all 12/28/2021 PHQ-2 Answer Date Recorded PHQ-2 Total Score (If total score is 3 or more points, staff should administer the PHQ-9) 0 05/29/2019 Hunger Vital Sign Answer Date Recorded Within the past 12 months, y ou worried that your food would run out before you got the money to buy more. Never true 12/29/19 22 Within the past 12 months, t he food you bought just didn't last and you didn't have money to get more. Never true 12/28/2021 PRAPARE - Transportation Answer Date Re corded In the past 12 months, has l ack of transportation kept you from medical appointments or from getting medications? No 12/17 In the past 12 months, has l ack of transportation kept you from meetings, work, or from getting things needed for daily living? No 12/28/2021 Housing Stability Vital Sign Answer Stevan e Recorded In the last 12 months, was t here a time when you were not able to pay the mortgage or rent on time? No 12/28/2021 In the last 12 months, how many places have you lived? 2 12/28/2021 In the last 12 months, was t here a time when you did not have a steady place to sleep or slept in a custodial (including now)? No 12/28/2021 Personal Safety Answer Date Recorded Getting School Help Needed Not on file 05/13 Sex and Gender Information Value Date Recorded Sex Assigned at Not on file Legal Sex Male 4:56 PM TRIMMING CASER Gender Identity Not on file Sexual Orientation Not on file Last Filed Vital Signs Vital Sign Reading Time Taken Comments Blood Pressure 91/61 12/28/2023 10:06 AM CDT Pulse 81 12/28/2023 10:06 AM CDT Temperature 36.7 C (98 F) 12/28/2023 10:06 AM CDT Respiratory Rate 18 12/29/2021 10:42 AM CDT Oxygen Saturation 99% 12/29/2021 10:42 AM CDT Inhaled Oxygen Concentration - - Weight 41.3 kg (91 lb) 12/28/2023 10:06 AM CDT Height 167.6 cm (5' 6 ) 12/28/2023 10:06 AM CDT Body Mass Index 14.69 12/28/2023 10:06 AM CDT Plan of Treatment Not on file Procedures Procedure Name Priority Date/Time Associated Diagnosis Comments PSA DIAGNOSTIC Routine 09/27/2020 10:30 AM CDT COLONOSCOPY 03/18/2019 8:31 AM TRIMMING CASER from Last 3 Months or Most Recently Relevant to Health Maintenance Results * PSA diagnostic (09/27/2020 10:30 AM CDT) PSA-Total 0.60 <=3.90 ng/mL MARKIE MARSHALL ([place]) Comment: Interpretive Data AGE SEX REFERENCE INTERVAL 0 minutes-150 years Female None 0 minutes-49 years Male None 50-59 years Male 0-3.90 60-69 years Male 0-5.40 70-79 years Male 0-6.20 80-150 years Male 0-6.20 Current interpretive data last revised 2018. Testing performed by: [facility], [address] [place] [address]., [id number] Blood specimen (specimen) 09/27/2020 10:30 AM CDT 09/27/2020 5:28 PM CDT [facility] BLOOD ORDERABLES Final R esult MARKIE MARSHALL ([place]) [address] [facility] [place] [address] * COLONOSCOPY (03/18/2019 8:31 AM TRIMMING CASER) Anatomical Region Laterality Modality Other Narrative Procedure Note Bubba Bailey MD - 03/18/2019 8:31 AM CST [facility] Patient Name: Ti Araujo Procedure Date: 03/18/2019 8:31 AM Date of : 1965 Admit Type: Inpatient Age: 54 Gender: Male Attending MD: Bubba Bailey M.D. Room: [facility] ENDOSCOPY ROOM 1 Note Status: Finalized Patient Profile: This is a 54 year old male. Patient admitted with severe anemia with iron deficiency. He also has progressive weight loss over last year and approximately 40 lb weight loss noted. EGDunremarkable. Procedure: Colonoscopy Indications: Diarrhea, Iron deficiency anemia Referring MD: Chandrakant Benton M.D. Providers: Bubba Bailey M.D. Impression: - Diverticulosis in the sigmoid colon and in the descending colon. - One 5 mm polyp in the descending colon, removedwith a jumbo cold forceps. Resected and retrieved. - Internal hemorrhoids. Recommendation: - Await pathology results. - Repeat colonoscopy in 5 years for screeningpurposes. - No pathology noted to explain the patient'ssymptoms. Consider hematology consultation for possible bone marrow biopsy and evaluation. Follow up in our GI office as outpatient evaluate the small intestine. Medicines: Monitored Anesthesia Care Complications: No immediate complications. Estimated Blood Loss: Estimated blood loss: none. Procedure: Pre-Anesthesia Assessment: - Prior to the procedure, a History and Physical was performed, and patient medications and allergieswere reviewed. The patient's tolerance of previous anesthesia was also reviewed. The risks and benefitsof the procedure and the sedation options and riskswere discussed with the patient. All questions were answered, and informed consent was obtained. Prior Anticoagulants: The patient has taken no previous anticoagulant or antiplatelet agents. ASA Grade Assessment: III - A patient with severe systemic disease. After reviewing the risks and benefits, the patient was deemed in satisfactory condition toundergo the procedure. The benefits, risks and alternatives of theprocedure and sedation were discussed and informed consent was obtained. All questions were answered. Please referto the signed informed consent document in the medical record. The scope was passed under direct vision.The Pediatric Colonoscope PCF-H190L [id number] was introduced through the anus and advanced to the the cecum, identified by appendiceal orifice andileocecal valve. The bowel preparation used was Miralax. The bowel preparation used was bisacodyl tablets. Bowel prep was administered using a split dose. Thequality of the bowel preparation was excellent. Findings: The perianal area appeared normal. Digital rectal examinations noted with a small the feeling of was submucosal nodule in the anteriorwall of the rectum which is mobile and not fixed with the prostate. The ileum appeared normal. The cecum appeared normal. Multiple small and large-mouthed diverticula were found in thesigmoid colon and descending colon. A 5 mm polyp was found in the descending colon. The polyp wassessile. The polyp was removed with a jumbo cold forceps. Resection andretrieval were complete. Otherwise the colon mucosa appeared normal and random colon biopsy was performed. The rectum appeared normal. There issmall area of scar tissue which may represent the small nodule early lesion felt on the finger examination Internal hemorrhoids were found during retroflexion. The hemorrhoids were medium-sized. Electronically signed by Bubba Bailey M.D. Bubba Bailey M.D. 03/18/2019 9:38:06 AM Number of Addenda: 0 Note Initiated On: 03/18/2019 8:31 AM Procedure Code(s): --- Professional --- 97913, Colonoscopy, flexible; with biopsy, single or multiple Diagnosis Code(s): --- Professional --- K64.8, Other hemorrhoids D12.4, Benign neoplasm of descending colon R19.7, Diarrhea, unspecified D50.9, Iron deficiency anemia, unspecified K57.30, Diverticulosis of large intestine without perforation orabscess without bleeding CPT copyright 2017 [employer]. All rights reserved. The codes documented in this report are preliminary and upon animal nutrition teacher reviewmay be revised to meet current compliance requirements. Recognized by the [employer] for promoting quality in endoscopy Bubba Bailey MD ENDOSCOPY PROCEDURES Final Result from Last 3 Months or Most Recently Relevant to Health Maintenance Insurance Advance Directives For more information, please contact: [phone] Documents on File Type Date Recorded Patient Marble Polisher Hand Expl anation ADVANCE DIRECTIVE 11/10/2021 3:54 PM Andres [email or web address] * Comfort Care Only - DO NOT Resuscitate (Latest Code Status on File) Date Activated Date Inactivated Comments 12/28/2021 12:44 AM 12/29/2021 5:04 PM * DNR Date Activated Date Inactivated Comments 11/10/2021 5:53 AM 12/27/2021 3:02 PM * Comfort Care Only - DO NOT Resuscitate Date Activated Date Inactivated Comments 11/04/2021 12:25 PM 11/09/2021 11:41 PM * Full Code Date Activated Date Inactivated Comments 10/20/2021 1:59 PM 11/04/2021 12:25 PM * Full Code Date Activated Date Inactivated Comments 10/18/2021 9:01 PM 10/20/2021 1:59 PM Care Teams Geospatial Image Analyst Relationship Specialty Start Date End Date Jessica Rushing MD PCP - General 05/13/19
--- OUTSIDE RECORDS SUMMARY | 2024-06-16 13:07 | XMS_ITS | Clinical Summary ---
Author Organization [facility] Address [address] [place] [address] Care Team Providers Care Skiving Machine Operator Name Role Phone Jessica Rushing MD Primary Care Provider Allergies Active Allergy Reactions Criticality Noted Date [...] Pt reports not having bowel movement in group home for 1-[address] demonstrated generalized dilatation [...] (06/24/2019): Added automatically from request for surgery [id number] Assessment & Plan (06/24/2019 4:33 PM CDT): [...] months. Assessment & Plan (04/08/2019 11:51 AM EAP CONSULTANT): Pt had EGD/colon and multiple imaging with no findings explaining anemia. Will schedule for small bowel capsule endoscopy to complete work up. Assessment & Plan (03/16/2019 4:50 AM EAP CONSULTANT): Patient had a hemoglobin of 16.3 in June. He denies bleeding anywhere. He states he follows with GI in [place] and had an EGD and colonoscopy 8 months ago. Will need to obtain records. Suspect iron deficient anemia. Iron profile is in process. Will give 1 time dose of Ferrlecit for now as patient has not received PRBCs due to antibodies and is awaiting for PRBCs from [place]. GI has been consulted, will await their [...] biopsy. Assessment & Plan (04/08/2019 11:49 AM EAP CONSULTANT): So far, unable to find explanation for [...] years. Assessment & Plan (03/16/2019 4:53 AM EAP CONSULTANT): Over the last 2-3 years. Patient states [...] smoking. Assessment & Plan (03/16/2019 4:42 AM EAP CONSULTANT): Nicotine patch has been ordered Lactic acidosis 03/16/2019 Assessment & Plan (03/16/2019 4:48 AM EAP CONSULTANT): Suspect this is due to severe anemia. Lower abdominal pain 2019 Overview (03/16/2019): Added automatically from request for surgery [id number] Assessment & Plan (04/08/2019 11:51 AM EAP CONSULTANT): Constant aching and sometimes cramping abdominal pain [...] nonconclusive. Assessment & Plan (03/16/2019 4:42 AM EAP CONSULTANT): Chronic issue. Patient states he is followed by GI in [place]. Abdominal pain appears to be in the right upper quadrant, umbilical region and suprapubic region. Will check a bladder scan to rule out urinary retention. Patient states Gas-X sometimes helps with his abdominal pain, will order p.r.n. Simethicone. Continue to monitor. Drug-induced neutropenia Leukopenia 12/28/2021 Hyponatremia 12/28/2021 Immunizations Immunization Administration Dates Next Due Influenza, Quadrivalent, Spl it, Preservative Free, Intramuscular 03/22/2019 Surgical History Surgery Date Site/Laterality Comments HERNIA REPAIR HERNIA MESH REMOVAL HERNIA MESH REMOVAL COLONOSCOPY Medical History Medical History Date Comments Hernia of flank GERD (gastroesophageal reflux disease) Somatic symptom disorder, pe rsistent, severe, with predominant pain 11/04/2021 Chronic intractable pain 11/04/2021 Severe protein-calorie malnutrition 03/17/2019 Cachexia 10/19/2021 Family History Medical History Relation Name Comments Hypertension Mother Relation Name Status Comments Father Mother Alive Social History Tobacco Use Types Packs/Day Years [...] week 12/28/2021 How often do you attend chur [employer] or oriental orthodox services? Never 12/28/2021 Do you belong to any clubs o r organizations such as moravian groups, unions, fraternal or athletic groups, or [...] place to sleep or slept in a assisted (including now)? No 12/28/2021 Personal Safety Answer Date Recorded Getting School Help Needed Not on file 05/13 Sex and Gender Information Value Date Recorded Sex Assigned at Not on file Legal Sex Male 4:56 PM EAP CONSULTANT Gender Identity Not on file Sexual Orientation Not on file Obstetrics History Last Filed Vital Signs Vital Sign Reading [...] 12/28/2023 10:06 AM CDT Plan of Treatment Health Maintenance Due Date Last Done Comments Hepatitis C Screening 1965 Hepatitis B Screening 1981 Regular Well Visit/Exam 18-64 1981 Zoster Vaccine (1 of 2) 2013 Pneumococcal vaccine <65 (2 of 2 - PCV) 08/29/2015 08/28/2014 Depression Screening 05/28/2020 05/29/2019, 05/29/2019, 2019 Prostate Cancer Screening-PSA 09/27/2022 09/27/2020, 03/17/2019 Covid-19 Vaccine (3 - 2023-2 5 season) 2023 10/23/2020, 10/02/2020 Influenza Vaccine (#1) 2023 3, 04/21/2022, 03/22/2019, Additional history exists DTaP/Tdap/Td Vaccine (2 - Td or Tdap) 03/01/2026 03/01/2016 Colon Cancer Screening-Colonoscopy 03/18/2029 03/18/2019 Colon Cancer Screening-CT Colonography Discontinued 03/18/2019 Colon Cancer Screening-DNA Stool Discontinued 03/18/20 19 Colon Cancer Screening-FIT Discontinued 03/18/2019 Colon Cancer Screening-Sigmoidoscopy Discontinued 03/18/2019 Procedures Procedure Name Priority Date/Time Associated Diagnosis Comments PSA DIAGNOSTIC Routine 09/27/2020 10:30 AM CDT COLONOSCOPY 03/18/2019 8:31 AM EAP CONSULTANT from Last 3 Months or Most Recently Relevant to Health Maintenance Results * PSA diagnostic (09/27/2020 10:30 AM CDT) PSA-Total 0.60 <=3.90 ng/mL KENCHANDLER MARSHALL ([place]) Comment: Interpretive Data AGE SEX REFERENCE INTERVAL 0 minutes-150 years Female None 0 minutes-49 years Male None 50-59 years Male 0-3.90 60-69 years Male 0-5.40 70-79 years Male 0-6.20 80-150 years Male 0-6.20 Current interpretive data last revised 2018. Testing performed by: [facility], [address] [place] [address], [facility] Blood specimen (specimen) 09/27/2020 10:30 AM CDT 09/27/2020 5:28 PM CDT [facility] BLOOD ORDERABLES Final R esult MARKIE JOANNA ([place]) [facility] Department [place] [address] * COLONOSCOPY (03/18/2019 8:31 AM EAP CONSULTANT) Anatomical Region Laterality Modality Other Narrative Procedure Note Bubba Bailey MD - 03/18/2019 8:31 AM CST [facility] Patient Name: Ti Araujo Procedure Date: 03/18/2019 8:31 AM Date of : 1965 Admit Type: Inpatient Age: 54 Gender: Male Attending MD: Bubba Bailey M.D. Room: [facility] ENDOSCOPY ROOM 1 Note Status: Finalized Patient [...] passed under direct vision.The Pediatric Colonoscope [id number]-[id number] was introduced through the anus and advanced [...] 8:31 AM Procedure Code(s): --- Professional --- 44242, Colonoscopy, flexible; with biopsy, single or multiple Diagnosis Code(s): --- Professional --- K64.8, Other hemorrhoids D12.4, Benign neoplasm of descending colon R19.7, Diarrhea, unspecified D50.9, Iron deficiency anemia, unspecified K57.30, Diverticulosis of large intestine without perforation orabscess without bleeding CPT copyright 2017 [employer]. All rights reserved. The codes documented in this report are preliminary and upon hoop maker reviewmay be revised to meet current compliance requirements. Recognized by the [employer] for promoting quality in endoscopy Bubba Bailye MD ENDOSCOPY PROCEDURES Final Result from Last 3 Months or Most Recently Relevant to Health Maintenance Insurance [facility] Advance Directives For more information, please contact: [phone] Documents on File Type Date Recorded Patient Director Personal Expl anation ADVANCE DIRECTIVE 11/10/2021 3:54 PM [...] 9:01 PM 10/20/2021 1:59 PM Care Teams Skiving Machine Operator Relationship Specialty Start Date End Date Jessica Rushing MD PCP - General 05/13/19
--- OUTSIDE RECORDS SUMMARY | 2024-06-16 13:07 | XMS_ITS | Data Portability ---
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 Plan of Treatment Reminders Order Date Submit Date Provider Last Modified By Organization Details Last Modified Time Details Appointments None recorded. Lab unlisted lab - PTH intact+sagrario cium, ionized 2019 020 [facility], [address] [place] [address], [address], [place], [address], 0 17:08:13 TSH, ultra-sens itive, serum 2019 020 [facility], [address] [place] [address], [address], [place], [address], 0 17:08:13 lipid panel, serum 2019 020 [facility], [address] [place] [address], [address], [place], [address], 0 17:08:12 hepatitis C Ab, signal-to- cutoff, serum or plasma 2019 020 [facility], [address] [place] [address], [address], [place], [address], 0 17:08:[address]/dietiti an referral 2019 [facility], [address] [facility] [place], [address], 0 08:13:22 Procedures None recorded. Surgeries None recorded. Imaging LDCT, chest, for lung cancer screening 2019 [facility] (Radiology), [address] [place], [address], 0 19:52:35 Medication Orders Ventolin HFA 90 mcg/actuat ion aerosol inhaler 2019 020 [id number], [address] [place], [address], 0 11:58:40 Incruse Ellipta 62.5 mcg/actuat ion powder for inhalation 2019 020 [email or web address] [id number], [address] [place], [address], 0 16:49:36 amitriptyl ine 25 mg tablet 2019 020 [facility]FACE [id number], [address] [place], [address], 0 11:50:10 Patient TargetsNo targets recorded. Patient Instructions Encounter Date Encounter Id Patient Instructions Last Modified By Organization Details Last Modified Time 05/05/2019 [id number] deciding about using medicines to quit smoking ssuthan Not available 05/05/2019 15:23:19 Quitting Tobacco : Care Instructions ssuthan Not available 05/05/2019 15:23:19 hypercalcemia: care instructions ssuthan Not available 05/05/2019 15:23:19 iron deficiency anemia: care instructions ssuthan Not available 05/05/2019 15:23:19 07/04/2019 [id number] deciding about using medicines to quit smoking ssuthan Not available 07/04/2019 12:22:31 Quitting Tobacco : Care Instructions ssuthan Not available 07/04/2019 12:22:31 iron deficiency anemia: care instructions ssuthan Not available 07/04/2019 12:22:31 07/18/2019 [id number] deciding about using medicines to quit smoking ssuthan Not available 07/18/2019 11:50:08 Quitting Tobacco : Care Instructions ssuthan Not available 07/18/2019 11:50:08 11/18/2019 [id number] deciding about using medicines to quit smoking ssuthan Not available 11/18/2019 11:58:38 Quitting Tobacco : Care Instructions ssuthan Not available 11/18/2019 11:58:38 chronic obstructive pulmonary disease (COPD): care instructions ssuthan Not available 11/18/2019 11:58:37 learning about copd and how to prevent lung infections ssuthan Not available 11/18/2019 11:58:37 Reason for Referral Manager Pest/dietitian Refer ral for Underweight Referring Physician: Jessica Ye, Internal Medicine, Encounter Date: 05/05/2019 Results Created Date Observation Date Name Description Value Unit Range Abnormal Flag Note LastModifiedBy Organization Detail LastModifiedTime 04/08/1904/09/2019 CBC w/ auto diff WBC 7.0 x10e3 /uL 3.4-10 .8 Not Available [facility] ([facility]) [address] [place], [address], 04/09/2019 08:17:02 04/08/1904/09/2019 CBC w/ auto diff RBC 5.04 x10e6 /uL 4.14-5 .80 Hypoc hroma lucy prese nt. Aniso cytos is prese nt. Not Available [facility] ([facility]) [address] [place], [address], 04/09/2019 08:17:02 04/08/1904/09/2019 CBC w/ auto diff hemoglobin 12.5 g/dL 13.0-1 7.7 below low normal Not Available [facility] ([facility]) [address] [place], [address], 04/09/2019 08:17:02 04/08/19 20 04/09/2019 CBC w/ auto diff hematocrit 40.8 % 37.5-5 1.0 Not Available [facility] ([facility]) [address] [facility], [place], [address], 04/09/2019 08:17:02 04/08/19 20 04/09/2019 CBC w/ auto diff MCV 81 fL 79-97 Not Available [facility] ([facility]) [address] [facility], [place], [address], 04/09/2019 08:17:02 04/08/1904/09/2019 CBC w/ auto diff MCH 24.8 pg 26.6-3 3.0 below low normal Not Available [facility] ([facility]) [address] [facility], [place], [address], 04/09/2019 08:17:02 04/08/1904/09/2019 CBC w/ auto diff MCHC 30.6 g/dL 31.5-3 5.7 below low normal Not Available [facility] ([facility]) [address] [facility], [place], [address], 04/09/2019 08:17:02 04/08/19 20 04/09/2019 CBC w/ auto diff RDW ACCOUNTING INSTRUCTOR Not Available [facility] ([facility]) [address] [facility], [place], [address], 04/09/2019 08:17:02 04/08/1904/09/2019 CBC w/ auto diff platelets 403 x10e3 /uL 150-45 0 Not Available [facility] ([facility]) [address] [place], [address], 04/09/2019 08:17:02 04/08/19 20 04/09/2019 CBC w/ auto diff neutrophils 59 % not estab. Not Available [facility] ([facility]) [address] [facility], [place], [address], 04/09/2019 08:17:02 04/08/19 20 04/09/2019 CBC w/ auto diff lymphs 31 % not estab. Not Available [facility] ([facility]) [address] [facility], [place], [address], 04/09/2019 08:17:02 04/08/19 20 04/09/2019 CBC w/ auto diff monocytes 6 % not estab. Not Available [facility] ([facility]) [address] [facility], [place], [address], 04/09/2019 08:17:02 04/08/19 20 04/09/2019 CBC w/ auto diff eos 2 % not estab. Not Available [facility] ([facility]) [address] [facility], [place], [address], 04/09/2019 08:17:02 04/08/1904/09/2019 CBC w/ auto diff basos 2 % not estab. Not Available [facility] ([facility]) [address] [facility], [place], [address], 04/09/2019 08:17:02 04/08/1904/09/2019 CBC w/ auto diff immature cells ACCOUNTING INSTRUCTOR Not Available [facility] ([facility]) [address] [facility], [place], [address], 04/09/2019 08:17:02 04/08/1904/09/2019 CBC w/ auto diff neutrophils (absolute) 4.2 x10e3 /uL 1.4-7. 0 Not Available [facility] ([facility]) [address] [place], [address], 04/09/2019 08:17:02 04/08/1904/09/2019 CBC w/ auto diff lymphs (absolute) 2.2 x10e3 /uL 0.7-3. 1 Not Available [facility] ([facility]) [address] [place], [address], 04/09/2019 08:17:02 04/08/19 20 04/09/2019 CBC w/ auto diff monocytes(ab solute) 0.4 x10e3 /uL 0.1-0. 9 Not Available [facility] ([facility]) [address] [facility], [place], [address], 04/09/2019 08:17:02 04/08/19 20 04/09/2019 CBC w/ auto diff eos (absolute) 0.1 x10e3 /uL 0.0-0. 4 Not Available [facility] ([facility]) [address] [facility], [place], [address], 04/09/2019 08:17:02 04/08/1904/09/2019 CBC w/ auto diff baso (absolute) 0.1 x10e3 /uL 0.0-0. 2 Not Available [facility] ([facility]) [address] [facility], [place], [address], 04/09/2019 08:17:02 04/08/19 20 04/09/2019 CBC w/ auto diff immature granulocytes 0 % not estab. Not Available [facility] ([facility]) [address] [facility], [place], [address], 04/09/2019 08:17:02 04/08/19 20 04/09/2019 CBC w/ auto diff immature grans (abs) 0.0 x10e3 /uL 0.0-0. 1 Not Available [facility] ([facility]) [address] [facility], [place], [address], 04/09/2019 08:17:02 04/08/1904/09/2019 CBC w/ auto diff NRBC ACCOUNTING INSTRUCTOR Not Available [facility] ([facility]) [address] [place], [address], 04/09/2019 08:17:02 04/08/19 20 04/09/2019 CBC w/ auto diff hematology comments: NOTE: Verif ied by micro dinai c shiloi natzaki n. Not Available [facility] ([facility]) [address] [place], [address], 04/09/2019 08:17:02 04/08/19 20 04/09/2019 CMP, serum or plasm a glucose 92 mg/dL 65-99 Not Available [facility] ([facility]) [address] [facility] [place], [address], 04/09/2019 08:17:02 04/08/19 20 04/09/2019 CMP, serum or plasm a BUN 16 mg/dL 6-24 Not Available [facility] ([facility]) [address] [place], [address], 04/09/2019 08:17:02 04/08/19 20 04/09/2019 CMP, serum or plasm a creatinine 0.88 mg/dL 0.76-1 .27 Not Available [facility] ([facility]) [address] [place], [address], 04/09/2019 08:17:02 04/08/19 20 04/09/2019 CMP, serum or plasm a eGFR if nonafricn AM 96 mL/mi n/1.7 3 >59 Not Available [facility] ([facility]) [address] [place], [address], 04/09/2019 08:17:02 04/08/19 20 04/09/2019 CMP, serum or plasm a eGFR if africn AM 111 mL/mi n/1.7 3 >59 Not Available [facility] ([facility]) [address] [place], [address], 04/09/2019 08:17:02 04/08/19 20 04/09/2019 CMP, serum or plasm a BUN/creatini ne ratio 18 9-20 Not Available [facility] ([facility]) [address] [place], [address], 04/09/2019 08:17:02 04/08/19 20 04/09/2019 CMP, serum or plasm a sodium 142 mmol/ L 134-14 4 Not Available [facility] ([facility]) [address] [place], [address], 04/09/2019 08:17:02 04/08/1904/09/2019 CMP, serum or plasm a potassium 4.5 mmol/ L 3.5-5. 2 Not Available [facility] ([facility]) [address] [place], [address], 04/09/2019 08:17:02 04/08/1904/09/2019 CMP, serum or plasm a chloride 101 mmol/ L 96-106 Not Available [facility] ([facility]) [address] [place], [address], 04/09/2019 08:17:02 04/08/1904/09/2019 CMP, serum or plasm a carbon dioxide, total 24 mmol/ L 20- Not Available [facility] ([facility]) [address] [place], [address], 04/09/2019 08:17:02 04/08/1904/09/2019 CMP, serum or plasm a calcium 10.6 mg/dL 8.7-10 .2 above high normal Not Available [facility] ([facility]) [address] [place], [address], 04/09/2019 08:17:02 04/08/1904/09/2019 CMP, serum or plasm a protein, total 8.7 g/dL 6.0-8. 5 above high normal Not Available [facility] ([facility]) [address] [place], [address], 04/09/2019 08:17:02 04/08/1904/09/2019 CMP, serum or plasm a albumin 5.5 g/dL 3.8-4. 9 above high normal Ple ase note refer ence inter norberto barajas e Not Available [facility] ([facility]) [address] [place], [address], 04/09/2019 08:17:02 04/08/19 20 04/09/2019 CMP, serum or plasm a globulin, total 3.2 g/dL 1.5-4. 5 Not Available [facility] ([facility]) [address] [facility] [place], [address], 04/09/2019 08:17:02 04/08/19 20 04/09/2019 CMP, serum or plasm a A/G ratio 1.7 1.2-2. 2 Not Available [facility] ([facility]) [address] [place], [address], 04/09/2019 08:17:02 04/08/1904/09/2019 CMP, serum or plasm a bilirubin, total 0.3 mg/dL 0.0-1. 2 Not Available [facility] ([facility]) [address] [place], [address], 04/09/2019 08:17:02 04/08/19 20 04/09/2019 CMP, serum or plasm a alkaline phosphatase 75 IU/L 39-117 Not Available [facility]) [address] [place], [address], 04/09/2019 08:17:02 04/08/1904/09/2019 CMP, serum or plasm a AST (SGOT) 11 IU/L 0-40 Not Available [facility] ([facility]) [address] [place], [address], 04/09/2019 08:17:02 04/08/1904/09/2019 CMP, serum or plasm a ALT (SGPT) 8 IU/L 0-44 Not Available [facility] ([facility]) [address] [place], [address], 04/09/2019 08:17:02 04/08/19 20 04/09/2019 PSA, total , serum or plasm a prostate specific Ag, serum 0.6 NG/mL 0.0-4. 0 Gladys ECLIA metho dolog y. Accor ding to the Ameri can [employer]o g[employer] iatio n, Serum PSA shoul d decre ase and remai n at undet ectab le level s after radic al prost atect demetris. The AUA defin es bioch emica l recur rence as an initi al PSA value 0.2 ng/mL or great er follo wed by a subse quent confi rmato ry PSA value 0.2 ng/mL or great er. Value s obtai lito with diffe rent assay metho ds or kits canno t be used inter barajas eably . Resul ts canno t be inter prete d as absol malgorzata evide nce of the prese nce or absen ce of odette bergman se. Not Available [facility] ([facility]) [address] [place], [address], 04/09/2019 08:17:03 05/05/19 20 05/06/2019 lipid panel , serum cholesterol, total 179 mg/dL 100-19 9 Speci men recei cris hemol yzed. Clini sagrario corre latio n indic ated. Not Available [facility] ([facility]) [address] [place], [address], 05/06/2019 17:08:12 05/05/19 20 05/06/2019 lipid panel , serum triglyceride s 123 mg/dL 0-149 Not Available [facility] ([facility]) [address] [place], [address], 05/06/2019 17:08:12 05/05/19 20 05/06/2019 lipid panel , serum HDL cholesterol 53 mg/dL >39 Not Available [facility]) [address] [place], [address], 05/06/2019 17:08:12 05/05/19 20 05/06/2019 lipid panel , serum VLDL cholesterol sagrario 25 mg/dL 5-40 Not Available [facility] ([facility]) [address] [place], [address], 05/06/2019 17:08:12 05/05/19 20 05/06/2019 lipid panel , serum LDL cholesterol calc 101 mg/dL 0-99 above high normal Not Available [facility] ([facility]) [address] [place], [address], 05/06/2019 17:08:12 05/05/19 20 05/06/2019 lipid panel , serum comment: ACCOUNTING INSTRUCTOR Not Available [facility] ([facility]) [address] [place], [address], 05/06/2019 17:08:12 05/05/19 20 05/06/2019 PTH (para thyro id hormo ne), intac t + calci um, serum or plasm a calcium, ionized, serum 5.5 mg/dL 4.5-5. 6 Not Available [facility] ([facility]) [address] [place], [address], 05/06/2019 17:08:13 05/05/19 20 05/06/2019 PTH (para thyro id hormo ne), intac t + calci um, serum or plasm a PTH, intact 15 pg/mL 15-65 Not Available [facility] ([facility]) [address] [place], [address], 05/06/2019 17:08:13 05/05/1905/06/2019 TSH, ultra -sens itive , serum TSH 0.771 uIU/m L 0.450- 4.500 Not Available [facility] ([facility]) [address] [place], [address], 05/06/2019 17:08:13 05/05/19 20 05/06/2019 hepat itis C Ab, signa l-to- cutof f, serum or plasm a HCV Ab 0.1 s/co_ ratio 0.0-0. 9 Not Available [facility] ([facility]) [address] [facility], [place], [address], 05/06/2019 17:08:14 05/05/1905/06/2019 hepat itis C Ab, signa l-to- cutof f, serum or plasm a comment: Commen t Non react jad HCV antib johnson scree n is consi stent with no HCV infec tion, unles s recen t infec tion is suspe cted or other evide nce exist s to indic ate HCV infec tion. Not Available [facility] ([facility]) [address] [facility], [place], [address], 05/06/2019 17:08:14 07/09/19 20 07/10/2019 CBC w/ auto diff WBC 6.0 x10e3 /uL 3.4-10 .8 Not Available [facility] ([facility]) [address] [facility], [place], [address], 07/10/2019 06:16:29 07/09/19 20 07/10/2019 CBC w/ auto diff RBC 5.02 x10e6 /uL 4.14-5 .80 Not Available [facility] ([facility]) [address] [facility], [place], [address], 07/10/2019 06:16:29 07/09/19 20 07/10/2019 CBC w/ auto diff hemoglobin 15.0 g/dL 13.0-1 7.7 Not Available [facility] ([facility]) [address] [facility], [place], [address], 07/10/2019 06:16:29 07/09/19 20 07/10/2019 CBC w/ auto diff hematocrit 45.9 % 37.5-5 1.0 Not Available [facility] ([facility]) [address] [facility], [place], [address], 07/10/2019 06:16:29 07/09/19 20 07/10/2019 CBC w/ auto diff MCV 91 fL 79-97 Not Available [facility] ([facility]) [address] [facility], [place], [address], 07/10/2019 06:16:29 07/09/19 20 07/10/2019 CBC w/ auto diff MCH 29.9 pg 26.6-3 3.0 Not Available [facility] ([facility]) [address] [facility], [place], [address], 07/10/2019 06:16:29 07/09/19 20 07/10/2019 CBC w/ auto diff MCHC 32.7 g/dL 31.5-3 5.7 Not Available [facility] ([facility]) [address] [facility], [place], [address], 07/10/2019 06:16:29 07/09/19 20 07/10/2019 CBC w/ auto diff RDW 12.9 % 11.6-1 5.4 Not Available [facility] ([facility]) [address] [facility], [place], [address], 07/10/2019 06:16:29 07/09/19 20 07/10/2019 CBC w/ auto diff platelets 344 x10e3 /uL 150-45 0 Not Available [facility] ([facility]) [address] [facility], [place], [address], 07/10/2019 06:16:29 07/09/19 20 07/10/2019 CBC w/ auto diff neutrophils 63 % not estab. Not Available [facility] ([facility]) [address] [facility], [place], [address], 07/10/2019 06:16:29 07/09/19 20 07/10/2019 CBC w/ auto diff lymphs 25 % not estab. Not Available [facility] ([facility]) [address] [facility], [place], [address], 07/10/2019 06:16:29 07/09/19 20 07/10/2019 CBC w/ auto diff monocytes 8 % not estab. Not Available [facility] ([facility]) [address] [place], [address], 07/10/2019 06:16:29 07/09/19 20 07/10/2019 CBC w/ auto diff eos 3 % not estab. Not Available [facility] ([facility]) [address] [place], [address], 07/10/2019 06:16:29 07/09/19 20 07/10/2019 CBC w/ auto diff basos 1 % not estab. Not Available [facility] ([facility]) [address] [place], [address], 07/10/2019 06:16:29 07/09/19 20 07/10/2019 CBC w/ auto diff immature cells ACCOUNTING INSTRUCTOR Not Available [facility] ([facility]) [address] [place], [address], 07/10/2019 06:16:29 07/09/1907/10/2019 CBC w/ auto diff neutrophils (absolute) 3.8 x10e3 /uL 1.4-7. 0 Not Available [facility] ([facility]) [address] [place], [address], 07/10/2019 06:16:29 07/09/19 20 07/10/2019 CBC w/ auto diff lymphs (absolute) 1.5 x10e3 /uL 0.7-3. 1 Not Available [facility] ([facility]) [address] [place], [address], 07/10/2019 06:16:29 07/09/1907/10/2019 CBC w/ auto diff monocytes(ab solute) 0.5 x10e3 /uL 0.1-0. 9 Not Available [facility] ([facility]) [address] [place], [address], 07/10/2019 06:16:29 07/09/1907/10/2019 CBC w/ auto diff eos (absolute) 0.2 x10e3 /uL 0.0-0. 4 Not Available [facility] ([facility]) [address] [place], [address], 07/10/2019 06:16:29 07/09/19 20 07/10/2019 CBC w/ auto diff baso (absolute) 0.1 x10e3 /uL 0.0-0. 2 Not Available [facility] ([facility]) [address] [facility], [place], [address], 07/10/2019 06:16:29 07/09/1907/10/2019 CBC w/ auto diff immature granulocytes 0 % not estab. Not Available [facility] ([facility]) [address] [facility], [place], [address], 07/10/2019 06:16:29 07/09/1907/10/2019 CBC w/ auto diff immature grans (abs) 0.0 x10e3 /uL 0.0-0. 1 Not Available [facility] ([facility]) [address] [place], [address], 07/10/2019 06:16:29 07/09/1907/10/2019 CBC w/ auto diff NRBC ACCOUNTING INSTRUCTOR Not Available [facility] ([facility]) [address] [place], [address], 07/10/2019 06:16:29 07/09/1907/10/2019 CBC w/ auto diff hematology comments: ACCOUNTING INSTRUCTOR Not Available [facility] ([facility]) [address] [place], [address], 07/10/2019 06:16:29 07/09/1907/10/2019 CMP, serum or plasm a glucose 102 mg/dL 65-99 above high normal Not Available [facility] ([facility]) [address] [place], [address], 07/10/2019 06:16:29 07/09/19 20 07/10/2019 CMP, serum or plasm a BUN 13 mg/dL 6-24 Not Available [facility] ([facility]) [address] [place], [address], 07/10/2019 06:16:29 07/09/19 20 07/10/2019 CMP, serum or plasm a creatinine 0.96 mg/dL 0.76-1 .27 Not Available [facility] ([facility]) [address] [place], [address], 07/10/2019 06:16:29 07/09/19 20 07/10/2019 CMP, serum or plasm a eGFR if nonafricn AM 88 mL/mi n/1.7 3 >59 Not Available [facility] ([facility]) [address] [place], [address], 07/10/2019 06:16:29 07/09/19 20 07/10/2019 CMP, serum or plasm a eGFR if africn AM 102 mL/mi n/1.7 3 >59 Not Available [facility] ([facility]) [address] [place], [address], 07/10/2019 06:16:29 07/09/19 20 07/10/2019 CMP, serum or plasm a BUN/creatini ne ratio 14 9-20 Not Available [facility]) [address] [place], [address], 07/10/2019 06:16:29 07/09/19 20 07/10/2019 CMP, serum or plasm a sodium 142 mmol/ L 134-14 4 Not Available [facility] ([facility]) [address] [place], [address], 07/10/2019 06:16:29 07/09/19 20 07/10/2019 CMP, serum or plasm a potassium 4.3 mmol/ L 3.5-5. 2 Not Available [facility] ([facility]) [address] [place], [address], 07/10/2019 06:16:29 07/09/19 20 07/10/2019 CMP, serum or plasm a chloride 101 mmol/ L 96-106 Not Available [facility] ([facility]) [address] [place], [address], 07/10/2019 06:16:29 07/09/19 20 07/10/2019 CMP, serum or plasm a carbon dioxide, total 22 mmol/ L 20- Not Available [facility] ([facility]) [address] [place], [address], 07/10/2019 06:16:29 07/09/19 20 07/10/2019 CMP, serum or plasm a calcium 10.2 mg/dL 8.7-10 .2 Not Available [facility] ([facility]) [address] [place], [address], 07/10/2019 06:16:29 07/09/1907/10/2019 CMP, serum or plasm a protein, total 8.0 g/dL 6.0-8. 5 Not Available [facility] ([facility]) [address] [place], [address], 07/10/2019 06:16:29 07/09/19 20 07/10/2019 CMP, serum or plasm a albumin 5.3 g/dL 3.8-4. 9 above high normal Not Available [facility] ([facility]) [address] [place], [address], 07/10/2019 06:16:29 07/09/19 20 07/10/2019 CMP, serum or plasm a globulin, total 2.7 g/dL 1.5-4. 5 Not Available [facility] ([facility]) [address] [place], [address], 07/10/2019 06:16:29 07/09/1907/10/2019 CMP, serum or plasm a A/G ratio 2.0 1.2-2. 2 Not Available [facility] ([facility]) [address] [place], [address], 07/10/2019 06:16:29 07/09/19 20 07/10/2019 CMP, serum or plasm a bilirubin, total 0.3 mg/dL 0.0-1. 2 Not Available [facility] ([facility]) [address] [place], [address], 07/10/2019 06:16:29 07/09/19 20 07/10/2019 CMP, serum or plasm a alkaline phosphatase 66 IU/L 39-117 Not Available [facility] [address] [place], [address], 07/10/2019 06:16:29 07/09/19 20 07/10/2019 CMP, serum or plasm a AST (SGOT) 12 IU/L 0-40 Not Available [facility] ([facility]) [address] [place], [address], 07/10/2019 06:16:29 07/09/19 20 07/10/2019 CMP, serum or plasm a ALT (SGPT) 6 IU/L 0-44 Not Available [facility] ([facility]) [address] [place], [address], 07/10/2019 06:16:29 05/13/19 20 05/13/2019 LDCT, chest , for lung cance r scree marie No observ ation record ed. [email or web address] [address] [place], [address], 05/15/2019 16:25:12 06/17/19 20 06/17/2019 US, adam tgeorgia eral, w/ axill a No observ ation record ed. [email or web address] [address] [place], [address], 06/19/2019 15:36:34 06/17/19 20 06/17/2019 US, breas t, bilat eral, w/ axill a No observ ation record ed. susie [facility] [address] [facility] , [place], [address], 06/19/2019 15:36:34 11/04/19 21 10/25/2020 XR, chest No observ ation record ed. ssuthan Not Available 2020 14:18:35 03/14/2002/18/2021 CT, abdom en + pelvi s, w/ contr ast No observ ation record ed. ssuthan Not Available 2020 16:57:14 12/23/1912/21/2022 XR, chest , 2 view No observ ation record ed. [place] [id number] [facility] [address], [place], [address], 12/22/2022 12:28:17 01/11/2001/10/2023 XR, chest , 2 view No observ ation record ed. [place] [id number] [facility] [address] [address], [place], [address], 01/11/2023 09:41:17 Result Notes None recorded. Problems Name Problem SNOMED Code Status Onset Date Resolution Date Notes Provider Name and Address Organization Details Recorded Time History of pancreat itis 8807528713 9107 Completed 201707/18/2019 Jessica Ye MD Attn: Accounting, [address] [place], [address], [place] [facility] 0 11:44:44 Adult failure to thrive syndrome 925264086 Active 2019 Ruba Gallego [place] null, [place] [facility] 0 15:19:42 Screenin g for malignan t neoplasm of prostate Completed 201907/04/2019 Jessica Ye MD Attn: Accounting, [address] [place], [address], [place] [facility] 0 12:20:51 Iron deficien cy anemia 02958806 Active 2019 Ruba Galleg[place], [place] [facility] 0 15:19:42 Chronic abdomina l pain 686464810 Active 2019 Ruba Galleg[place] [facility] 0 15:19:42 Underwei ght 066959962 Active 2019 Ruba Galleg[place] [facility] 0 15:19:42 Tobacco dependen ce syndrome 52432329 Active 2019 Ruba Galleg[place] [facility] 0 15:19:42 Imaging result abnormal 003633300 Active 2019 Ruba Gallgeo [place], [place] [facility] 0 15:19:42 Chronic obstruct ajd pulmonar y disease 31716761 Active 2019 Jessica Ye MD Attn: Accounting, [address] [place], [place], [address] [place] [address], [place] [facility] 0 11:59:48 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 per Urology notes dated 7 Jesisca Ye MD Attn: Accounting, [address] [place], [place], [address] [place] [address], [place] [facility] 0 15:24:32 Dyspnea 931710428 Completed 07/04/2019 Robson Ye MD Attn: Accounting, [address] [place], [address], [place] [facility] 0 12:20:42 Abdomina l pain 76551014 Completed 07/04/2019 Jessica Ye MD Attn: Accounting, [address] [place], [address], [place] [facility] 0 12:21:05 Tobacco user 650838650 Completed 07/18/2019 Jessica Ye MD Attn: Accounting, [address] [place], [place], [address] [place] [address], [facility] - [facility] 0 11:41:54 Benign prostati c hyperpla lucy 820123548 Completed 07/04/2019 Jessica Ye MD Attn: Accounting, [address] [place], [place], [address] [place] [address], [facility] - [facility] 0 12:05:15 Adrenal adenoma 000090232 Active 2016 Ruba Gallego MA null, [place] - [facility] 0 15:19:42 Screenin g for drug of abuse in urine specimen positive 505301813 Completed 201607/04/2019 Jessica Ye MD Attn: Accounting, [address] [place], [place], [address] [place] [address], [facility] - [facility] 0 12:20:39 Disorder of lipid metaboli 528003878 Completed 07/04/2019 Jessica Ye MD Attn: Accounting, [address] [place], [place], [address] [place] [address], [facility] - [facility] 0 12:05:21 Notes: I went to see Dr. Jordi covarrubias and then Dr. Piedra. Some problems listed in Document: #[id number] could not be added to this patient's chart. Please review this document and add these problems to the patient's chart manually as needed. Problem Notes None recorded. Procedures Surgical History Date Name Laterality Status Provider Name and Address Organization Details Recorded Time Ligation of hemorrhoid(s) completed Jocelyne Hirsch MD Attn: Accounting,[address] [place], [place], [address] [place] [address], [facility] - [facility] 03/01/2016 15:29:16 Cholecystectomy completed Jocelyne Hirsch MD Attn: Accounting, [address] [place], [place], [address] [place] [address], [facility] - [facility] 03/01/2016 15:29:41 Hernia Repair completed Jocelyne Hirsch MD Attn: Accounting,[address] [place] [address], [facility] - [facility] 03/17/2014 11:49:47 Imaging Results Imaging Date Name Status LastModified by Organiz ation Details LastModified Time 05/13/2019 [facility] [address] [place], [address], 05/15/2019 16:25:12 06/17/2019 US, breast, bilateral, w[facility] [address] [place], [address], 06/19/2019 15:36:34 06/17/2019 US, breast, bilateral, w/ axilla [facility] [address] [place], [address], 06/19/2019 15:36:34 10/25/2020 [facility] available 11/03/2020 14:18:35 02/18/2021 CT, abdomen + pelvis, w/ contrast completed [facility] Information not available 03/14/2021 16:57:14 12/21/2022 XR, chest, 2 view completed [address], [address], 12/22/2022 12:28:17 01/10/2023 XR, chest, 2 view completed [address], [address], 01/11/2023 09:41:17 Procedure Notes None recorded. Medical Equipment None Reported. Allergies Allergen ID Allergen Name Allergen Category Reaction Reaction Severity Criticality Documentation Date Start Date Code Code System Note Provider Name and Address Organization Details Recorded Time 74113 Product containin g penicilli n (product) medicatio n rash mild Not available 03/17/2014 63429 8004 SNOMED Not Available Not Available Not Available Medications Name Sig Start Date Stop Date Status Note LastModified by Organization Details LastModified Time hydroco/apa p tab 5-325mghydr ocodone/pavel taminophen 03/01 completed Not Available Not Available Not Available smz/tmp ds tab 800-160sulf amethoxazol e/trimethop rim ds 03/01 completed Not Available Not Available Not Available naproxen 375 mg tablet 05/05 completed Not Available Not Available Not Available nicotine 14 mg/24 hr daily transdermal patch Apply 1 patch every day by transderm al route for 14 days. 10/04 completed Not Available Not Available Not Available azithromyci n 250 mg tablet 01/04 completed Not Available Not Available Not Available hydrocodone 5 mg-acetamin ophen 325 mg tablet 10/04 completed Not Available Not Available Not Available sucralfate 1 gram tablet 05/05 completed Not Available Not Available Not Available Tylenol Arthritis Pain 650 mg tablet,exte nded release Take 2 tablets every 8 hours by oral route as needed for 14 days. 07/17 completed Not Available Not Available Not Available metronidazo le 500 mg tablet TAKE 1 TABLET BY MOUTH EVERY 8 HOURS FOR 7 DAYS active Not Available Not Available No t Available ciprofloxac in 250 mg tablet TAKE 2 TABLETS BY MOUTH EVERY 12 HOURS active Not Available Not Available No t Available ciprofloxac in 500 mg tablet 03/01 completed Not Available Not Available Not Available morphine ER 30 mg tablet,exte nded release active Not Available Not Available Not Available sulfamethox azole 800 mg-trimetho prim 160 mg tablet 05/05 completed Not Available Not Available Not Available omeprazole 40 mg capsule,del ayed release 05/05 completed Not Available Not Available Not Available tramadol 50 mg tablet active Not Available Not Available No t Available acetaminoph en 500 mg tablet Take 1 tablet every 8 hours by oral route as needed for 15 days. 2014 active Not Available Not Available Not Avai lable ketorolac 10 mg tablet 10/04 completed Not Available Not Available Not Available cyproheptad ine 4 mg tablet TAKE 1 TABLET BY MOUTH EVERYDAY AT BEDTIME 2019 active Not Available Not Available Not Avai lable amitriptyli ne 25 mg tablet TAKE 1 TABLET BY MOUTH EVERY DAY 2019 active Not Available Not Available Not Avai lable dicyclomine 20 mg tablet TAKE 1 TABLET BY MOUTH TWICE A DAY active Not Available Not Available No t Available pantoprazol e 40 mg tablet,hiro yed release TAKE 1 TABLET BY MOUTH EVERY DAY active Not Available Not Available No t Available ferrous sulfate 325 mg (65 mg iron) tablet TAKE 1 TABLET (325 MG TOTAL) BY MOUTH MANAGER MAIL BEFORE BREAKFAST active Not Available Not Available No t Available ranitidine 150 mg tablet 04/12 completed Not Available Not Available Not Available promethazin e 25 mg tablet 05/05 completed Not Available Not Available Not Available nicotine 21 mg/24 hr daily transdermal patch Apply 1 patch(es) every day by transderm al route for 12 days. 05/10 completed Not Available Not Available Not Available omeprazole 20 mg capsule,del ayed release 11/17 completed Not Available Not Available Not Available diclofenac sodium 75 mg tablet,hiro yed release TAKE 1 TABLET(S) TWICE A DAY BY ORAL ROUTE WITH MEALS FOR 30 DAYS. 03/01 completed Not Available Not Available Not Available polyethylen e glycol 3350 17 gram/dose oral powder 05/05 completed Not Available Not Available Not Available levofloxaci n 500 mg tablet active Not Available Not Available Not Available albuterol sulfate HFA 90 mcg/actuati on aerosol inhaler INHALE 2 PUFFS EVERY 6 8 HOURS NEEDED FOR SHORTNESS OF BREATH active Not Available Not Available No t Available dicyclomine 10 mg capsule 05/05 completed Not Available Not Available Not Available finasteride 5 mg tablet Take 1 tablet every day by oral route for 30 days. 06/29 completed Not Available Not Available Not Available metoclopram annmarie 10 mg tablet Take 1 tablet 4 times a day by oral route as needed. 07/03 completed Not Available Not Available Not Available nicotine 7 mg/24 hr daily transdermal patch Apply 1 patch every day by transderm al route for 14 days. 10/04 completed Not Available Not Available Not Available Spiriva with HandiHaler 18 mcg and inhalation capsules INHALE 1 CAPSULE BY MOUTH EVERY DAY active Not Available Not Available No t Available tramadol 06/29 completed From GI Not Available Not Available Not Available Advil active Not Available Not Availa ble Not Available Stool Softener 05/05 completed Not Available Not Available Not Available GaviLyte-N 420 gram oral solution 06/29 completed Not Available Not Available Not Available Creon 6,000-19,00 0-30,000 unit capsule,del ayed release active Not Available Not Available Not Available Metamucil (with sugar) 3.4 gram/7 gram oral powder Take 3.4 g every day by oral route as directed for 30 days. 05/05 completed Not Available Not Available Not Available Incruse Ellipta 62.5 mcg/actuati on powder for inhalation INHALE 1 PUFF(S) EVERY DAY BY INHALATIO N ROUTE DIRECTED FOR 30 DAYS. active Not Available Not Available No t Available Fluarix Quad 7262-6040 (PF) 60 mcg (15 mcg x 4)/0.5 mL IM syringe 05/10 completed Not Available Not Available Not Available Proctosol HC 2.5 % topical cream perineal applicator 05/10 completed Not Available Not Available Not Available Vitals Date Recorded Body height Body mass index (BMI) Body weight Body temperature Heart rate Oxygen saturation Oxygen saturation in Arterial blood by Pulse oximetry Respiratory rate Systolic blood pressure Diastolic blood pressure Provider Name and Address Organization Details Last Updated DateTime 0 172.72 cm 15.7 kg/m2 39683.0 1 g 97.4 [degF] 97 /min 98 % 98 % 15 /min 100 mm[Hg] 60 mm[Hg] Ruba Lashonda [facility] 0 14:31:57 Date Recorded Body height Provider Name an d Address Organization Details Last Updated DateTime 06/25/2019 172.72 cm Ruba Gomezgeorge [facility] 06/25/2019 15:19:05 Date Recorded Body height Provider Name an d Address Organization Details Last Updated DateTime 07/04/2019 172.72 cm Luoise Johnson [facility] 0 10:58:53 Date Recorded Body height Provider Name an d Address Organization Details Last Updated DateTime 07/18/2019 172.72 cm Louise Johnson [facility] 0 10:53:16 Date Recorded Body height Provider Name an d Address Organization Details Last Updated DateTime 11/18/2019 172.72 cm Louise Johnson [facility] 0 10:52:46 Social History Question Answer Notes LastModified by Organizat ion Details LastModified Time Tobacco Smoking Status Current Every Day Smoker Was assessed as Not Performed by [email or web address] on 12/19/2017 Verna Arana MA [facility], [place] - [facility] 06/29/2018 10:26:32 Do You Have An Advance Directive? No Information not available 05/28/2014 What Is Your Level Of Alcohol Consumption? Moderate Pt. States That He Hasn't Had Alcohol In 4 Years. Information not available 06/29/2018 What Is Your Level Of Caffeine Consumption? Heavy PT. States A Cup A Day Of Coffee. Information not available 06/29/2018 How Much Tobacco Do You Chew? None Information not available 05/28/2014 Are You Currently Employed? No Information not available 03/17/2014 Do You Or Have You Ever Used E-cigarettes Or Vape? Never Used Electronic Cigarettes Information not available 11/18/2019 Hard Of Hearing Or Deaf In One Or Both Ears? No Information not available 05/28/2014 Legally Blind In One Or Both Eyes? No Information not available 05/28/2014 Live Alone Or With Others? With Others Information not available 03/17/2014 What Was The Date Of Your Most Recent Tobacco Screening? 11/18/2019 Information not available 11/18/2019 Performs Monthly Self-breast Exam? No Information not available 05/28/2014 Seat Belts Used Routinely Yes Information not available 05/28/2014 Do You Or Have You Ever Used Smokeless Tobacco? Never Used Smokeless Tobacco Information not available 11/18/2019 How Much Tobacco Do You Smoke? 0.5 PPD Information not available 07/18/2019 Do You Use Sunscreen Routinely? No Information not available 05/28/2014 On What Date Was Tobacco Cessation Counseling Provided? 11/18/2019 Information not available 11/18/2019 How Many Years Have You Smoked Tobacco? 30 Information not available 03/17/2014 Sex: Unknown Functional Status Question Answer Note LastModified by Organization D etails LastModified Time Are you able to care for yourself? Yes Information n ot available 05/28/2014 What is your exercise level? None Information not available 03/17/2014 Mental Status None recorded. Family History Relationship Description Onset Age of this Age Resolved Age Notes LastModified by Organization Details LastModified Time Father Heart disease [email or web address] Not available 2014 15:55:05 Medical History Condition Response Coronary Artery Disease N Other N High Blood Pressure N Atrial Fibrillation N Kidney or Bladder Problems N Thyroid Problems N GI Problems N Depression N COPD N Blood Clots N Skin Problems N Anemia N Heart Attack (NH) N Anxiety Disorder Y Diabetes N Muscle, Joint, or Bone Problems N Seizures/Epilepsy N Acid Reflux (GERD) N Cancer N Stroke N Asthma N Allergies N High Cholesterol N Hepatitis N Liver Disease N Headaches N Heart Failure N Osteoporosis N Immunizations Vaccine Type Date Status Note Provider Nam e and Address Organization Details Recorded Time Tdap 6 completed Not Available [facility] 04/05/2019 02:33:01 Influenza, split virus, quadrivalent, preservative 7 completed Not Available [facility] 04/05/2019 02:43:40 Influenza, split virus, quadrivalent, PF 8 completed Not Available [facility] 04/05/2019 02:41:27 pneumococcal polysaccharide PPV23 5 completed Not Available [facility] 04/05/2019 02:29:46 Influenza, high-dose, trivalent, PF 6 completed Ruba Gallego MA [place], [place] - [facility] 06/25/2019 15:19:47 Influenza, split virus, trivalent, PF 4 completed Not Available [facility] 04/05/2019 02:31:44 Past Encounters Encounter ID Performer Location Encounter Start Date Encounter Closed Date Diagnosis/Indication Diagnosis SNOMED-CT Code Diagnosis ICD10 Code Diagnosis Note [id number] June JOSAFAT [facility] (Adult Med) [address] [place] [phone] 03/17/2014 11:08:56 03/17/2014 16:01:00 Influenza vaccine needed [id number] 106 General ex amination of patient 736690422 Records from previous PCP Abdominal pain 00731912 Tobacco user 337314244 C essation was discussed, obtain CXR Benign pro static hyperplasia 664328189 Check PSA [id number] MD Vero Hidalgo (Adult Med) [address] [place] [phone] 04/10/2014 14:30:02 04/10/2014 17:49:[address] scan of the abdomen and pelvis does not explain his RLQ pain, he appears convinced that his pain is from the mesh used during his RIH repair 5 years ago. I will have him seen by Dr. Davies, the general surgeon who performed his hernia repair. Unfortunat mireya his pain is not relieved by Advil, he can try Tylenol and follow up with us in 6-8 weeks and prn Disorder o f lipid metabolism 967286660 His LDL is 103, he should be able to manage that with a change in his diet, and this was discussed [id number] MD Vero Hidalgo (Adult Med) [address] [place] [phone] 05/28/2014 14:26:42 05/28/2014 15:46:40 Abdominal pain 99935224 49 y/o WM who was in the interim was seen by the surgeon Dr. Davies who did not find a hernia, there was a suggestion of a cyst for which he was sent to the Urologist, Dr. Piedra. An ultrasound was done which confirmed a tumor and he is scheduled for surgery. Scrotal mass 75674582 Le ft sided, I will obtain a copy of the ultrasound . He will be having surgery soon. I am not sure the left scrotal mass will explain his right groin pain, he can try Diclofenac Na 75mg po bid, as the Tylenol and Advil are no longer helpful [id number] MD Vero Hidalgo (Adult Med) [address] [place] [phone] 0 08/28/2014 09:37:43 08/28/2014 15:07:54 Scrotal mass 09753249 Left sided, he apparently had surgery in May, we will request the operative and pathology surgery. He will be following up with Dr. Piedra in December. Dyspnea 457621213 Possib le COPD PFTs Albuterol HFA inhaler Tobacco user 820280680 C essation was discussed, obtain CXR Screening for cancer [id number] This was apparently done by Dr. Ba over 8 years ago,he had called that office and unfortunat mireya they do not accept his insurance. Disorder o f lipid metabolism 397062286 [id number] MD Vero Hidalgo (Adult Med) [address] [place] [phone] 0 03/01/2016 14:36:41 03/01/2016 15:49:50 Hiatal hernia 31611079 K44.9 Diverticul osis of colon without diverticulitis 746005875 K57.30 Abdominal pain 07407140 R10.9 Unexplaine d RLQ abdominal discomfort , in view of his previous complicate d history, he really should follow up with Dr. Crowell. He has had an EGD and colonoscop y in 2013, the plan is a colonoscop y Q 5 years. I have asked for a copy of the colonoscop y to be rquested from . 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 Inguinal lymphadenopathy 005335591 R59.0 Follow up with Urology, he may need a biopsy if his labs do not explain the LN enlargemen t and if there is no improvemen t. Screening for malignant neoplasm of prostate 240040297 Z12.5 Immunization due 3351612 08 Z28.3 [id number] Jocelyne Hirsch MD [facility] (Adult Med) [address] [place] [phone] 0 04/12/2016 14:34:56 04/12/2016 15:40:46 Tobacco dependence in remission 445113221 F17.201 Adrenal adenoma 38799451 8 D35.01 D35.02 Screening for drug of abuse in urine specimen positive 603382118 R82.5 He admits to using marijuana which did not show up on his UDS, but denies cocaine which was present. [id number] MD Vero Hidalgo (Adult Med) [address] [place] [phone] 0 05/10/2016 15:09:40 05/10/2016 15:28:31 Adrenal adenoma 105610137 D35.01 D35.02 Discussed in detail.Rep orted to be a most likely benign process. Patient education materials as well as the copy of the CT scan of the adrenals were provided to the patient. Hiatal hernia 66517060 K 44.9 An incidental hernia was noted on the CT scan done in January 2016. [id number] MD Vero Hidalgo (Adult Med) [address] [place] [phone] 10/04/2016 09:37:21 10/04/2016 10:26:05 Pain in right foot 3589677945 57292 M79.671 Adrenal adenoma 10571218 8 D35.01 D35.02 Discussed in detail, this was an incidental finding on the CT scan done prior to 03/08/2016 . This was previously discussed, he has requested a second opinion. Inguinal pain 327336101 R10.2 Abnormal urinalysis 1672 99271 R82.90 Screening for drug of abuse in urine specimen positive 302641916 R82.5 His UDS was positive for cocaine. Tobacco de pendence in remission 832630898 F17.232 [id number] MD Vero Hidalgo (Adult Med) [address] [place] [id number] 0 11/01/2016 09:42:27 11/01/2016 11:27:40 Adrenal adenoma 663400135 D35.01 D35.02 Awaiting an input from the endocrinol ogist, the records were faxed and the nurse is having difficulty contacting their office. I have printed the referral for Mr. Araujo. Foot pain 49264137 M79.6 71 The labs and xrays were normal, he now alludes to a radicular distributi on Thigh pain 16356780 M79. 651 He has localized pain in the medial and mid portion of the right thigh Pain in ri t lower limb 872097040 M79.604 Low back pain 831738621 M54.5 Inguinal pain 914770531 R10.2 His positive UDS with cocaine makes it impossible for me to prescribe him any controlled drugs, OTC meds for now. [id number] MD Vero Hidalgo (Adult Med) [address] [place] [id number] 0 12/06/2016 11:13:14 12/06/2016 12:51:48 Inguinal pain 859962377 R10.2 Possibly a strain Swelling o f inguinal region 103802456 R19.09 Influenza vaccine needed 9453086689 106 Z23 Adrenal adenoma 86711866 8 D35.01 D35.02 His appointmen t with the endocrinol ogist is imminent. [id number] MD Vero Hidalgo (Adult Med) [address] [place] [address] [phone] 0 02/07/2017 11:29:01 02/07/2017 13:39:22 Persistent testicular pain 990065185 N50.89 Levofloxac in for possible Epididymo- orchitis as he has an allergy to PCN and I am not keen on using Ceftriaxon e in view of possible cross reactivity . Side effects including neuropathy and tendon damage were discussed in detail.Uro logy follow up is important. Osteoarthritis of hip 23 9616028 M16.11 [id number] MD Vero Hidalgo (Adult Med) [address] [place] [address] [id number] 03/21/2017 10:53:45 03/21/2017 13:36:10 Screening for malignant neoplasm of prostate 555377323 Z12.5 Tobacco de pendence in remission 616706576 F17.377 [id number] [facility] [address] [place] [address] [phone] 0 06/06/2017 11:58:32 06/06/2017 13:15:22 Tachycardia 3508530 R00.0 Abdominal pain 19147522 R10.9 He has had an EGD and colonoscop y in 2013, the plan is a colonoscop y Q 5 years. [id number] MD Vero Hidalgo (Adult Med) [address] [place] [address] [phone] 0 07/18/2017 11:48:52 07/18/2017 12:29:00 Pancreatitis 99365871 K85.90 Constipation 82726680 K5 9.00 [id number] MD Vero Hidalgo (Adult Med) [address] [place] [address] [phone] 0 08/30/2017 09:28:53 08/30/2017 17:21:16 Serum lipids above reference range 212804581 R79.89 His labs on 07/19/2017 were normal, however on 08/06/2017 they were abnormal, I will have to believe that he was not fasting when the last set of labs were done. Constipation 94529768 K5 9.00 Abnormal f [facility] diagnostic imaging of liver+biliary tract 364793560 R93.2 Biliary dilation on the EGD and endoscopic US, he remains under the care of Dr. Aviles Serum amyl ase above reference range 997787752 R74.8 This is not specific for Pancreatic disease, his Lipase was also normal Dysthymia 51011019 F34.1 Just depressed because of all this pain [id number] MD Vero Hidalgo (Adult Med) [address] [place] [address] [phone] 0 11/28/2017 09:08:25 11/29/2017 09:28:15 Administration of influenza vaccine 08414346 Z23 Dyspnea 413178591 R06.02 Possible COPD Copy of PFTs Add Incruse History of pancreatitis 8041097798 9107 Z87.19 His RLQ abdominal pain does not correlate with pancreatit is, his previous CT scan was abnormal although the labs were normal, chronic pancreatit is? Nicotine dependence 5629 4008 F17.200 Unexplaine d weight loss 132210444 R63.4 [id number] Jocelyne Hirsch MD [facility] (Adult Med) [address] [place] [address] [phone] 0 12/19/2017 09:11:08 12/19/2017 09:59:29 Hyperlipidemia 77311939 E78.5 Discussed Chronic ob structive pulmonary disease 60846238 J44.9 Screening for malignant neoplasm of prostate 223590221 Z12.5 History of pancreatitis 5214114436 9107 Z87.19 He was seen by GI and started on Tramadol, [facility] chronic pancreatit is? [id number] ED Sanchez 14 IM [address] [facility] [address] [place] [address] 06/29/2018 10:14:53 07/01/2018 09:54:38 Abdominal pain 04899682 R10.9 Counseled on abdominal pain, medication s and new referral. Encouraged low fat diet, no alcohol or caffeinate d beverages- advised to find high protein drinks to sip on through the day to help with weight-no narcotics pt advised that not appropriat e for his current complaint- pt has poor grasp on this-siste r advised as well Simple renal cyst [id number] N28.1 referral to nephro-liang s have history of prostate tumor removal [id number] ED Sanchez 14 IM [address] [facility] [place] [address] 09/30/2018 11:23:32 10/01/2018 12:18:35 Abdominal pain [id number] R10.9 Counseled on abdominal- continue with GI-advised to find high protein drinks to sip on through the day to help with weight-no narcotics pt advised that not appropriat e for his current complaint (reinforce d today)-pt has poor grasp on this-jasiel romano advised as well [id number] ED Sanchez 14 IM [address] [facility] [place] [address] 04/08/2019 14:05:33 04/09/2019 12:44:15 Abdominal pain [id number] R10.9 Counseled on abdominal- continue with GI-advised to find high protein drinks to sip on through the day to help with weight Adult fail ure to thrive syndrome [id number] R62.7 Screening for malignant neoplasm of prostate 593627816 Z12.5 [id number] MD Negro Hunt 14 IM [address] [facility] [place] [address] 05/05/2019 14:14:55 05/06/2019 11:20:14 Chronic abdominal pain [id number] R10.9 ? Cause.Has appt to see Dr.Karadag reynolds who ordered capsular endoscopy this Sunday.On omeprazole Iron defic iency anemia 98453525 D50.9 Hb was 5.7 had 3 units transfusio n, ? Cause of loss . Has appt to see tomorrow Imaging re sult abnormal 959787583 R93.89 Per recent w/u at [facility] nded PET CT- will differ this to hematologi st when he sees him tomorrow. Underweight 457490467 R6 3.6 recommend eat multiple time at least small portion.WE ill refer to Nutritinis t assess and need of additional help. Tobacco de pendence syndrome 57271864 F17.200 Recommend to slow down and quit at the earliest- 3/4 PPD Hypercalcemia 20856999 E 83.52 Will repeat. Long-term drug therapy 165996626 Z79.899 Baseline labs [id number] MD Negro Hunt 14 IM [address] [facility] [place] [address] 06/25/2019 15:16:05 06/26/2019 09:33:13 Bite of bed bug 060404379 W57.XXXS Pt denies having rash / bitten area in the body, reassured. Adrenal adenoma 69195911 8 D35.01 D35.02 B/L per the imageunint entional weight loss. refer to Endo for further w/u per the need. 0Yet to connect with Endo, gave the number again. [id number] MD Negro Hunt 14 IM [address] [facility] [place] [address] 07/04/2019 09:16:05 07/08/2019 15:23:14 Adrenal adenoma 164422672 D35.01 D35.02 B/L per the imageunint entional weight loss. refer to Endo for further w/u per the need. 0Yet to connect with Endo, gave the number again.07/03Couldn' t get hold of the specialist it seems. Axillary lymphadenopathy 507096131 R59.0 B/L, refer to surgeon for probable u/s guided biopsy07/03Had biopsy per the pt and was not cancerous per the pt- does see Hematologi st Tobacco de pendence syndrome 42881857 F17.200 Recommend to slow down and quit at the earliest- 3/4 PPD Chronic ab dominal pain 894128357 R10.9 ? Cause.Has appt to see Dr.Karadag reynolds who ordered capsular endoscopy this Sunday.On omeprazole 07/04/19No change in medication . Iron defic iency anemia 85595322 D50.9 Hb was 5.7 had 3 units transfusio n, ? Cause of loss . Has appt to see tomorrowOn iron replacemen t [id number] MD Negro Hunt 14 IM [address] [facility] [place] [address] 07/18/2019 09:31:14 07/21/2019 10:59:00 Chronic abdominal pain 350315644 R10.9 ? Cause.Has appt to see Dr.Karadag reynolds who ordered capsular endoscopy this Sunday.On omeprazole 07/04/19No change in medication .07/18/19Wil l add amitryptal ine at bedtimeRec ommended high fiber diet. Adrenal adenoma 28684229 8 D35.01 D35.02 B/L per the imageunint entional weight loss. refer to Endo for further w/u per the need. 0Yet to connect with Endo, gave the number again.07/03Couldn' t get hold of the specialist it seems.Did see . 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 Cause.Has appt to see Dr.Karadag reynolds who ordered capsular endoscopy this Sunday.On omeprazole 07/04/19No change in medication .07/18/19Wil l add amitryptal ine at bedtimeRec ommended high fiber diet. 0not much improvemen t per the pt Adrenal adenoma 92041815 8 D35.01 D35.02 B/L per the imageunint entional weight loss. refer to Endo for further w/u per the need. 0Yet to connect with Endo, gave the number again.07/03Couldn' t get hold of the specialist it seems.Did see . awaiting to labs per the pt11/18/19no records from the specialist . Used to see Endo in [facility] too in 2018 Underweight 995670934 R6 3.6 recommend eat multiple time at least small portion.Wi ll refer to Nutrit[facility] t assess and need of additional help. 0did see the Nutritinis t.Gained about 4 lbs per the pt. Tobacco de pendence syndrome 58026145 F17.200 Recommend to slow down and quit at the earliest- 8-10 cig/day Chronic ob structive pulmonary disease 85519952 J44.9 Slow down and quit smoking.Us e inhalers as prescribed pt was encouraged to see another PCP of his choice (very poor historian only says yes and no, may be difficult to understand ...) Health Concerns Section Related Observation LastModified by Organization Detai ls LastModified Time None Recorded Concern Status LastModified by Organization Details LastModified Time None Recorded Advance Directives Directive N: Payers Encounter Date Sequence Insurance Name Policy Number Policy Alberto Covered Member ID Alberto Member ID Guarantor Name 05/05/2019 1 [employer] PRIOR TO 09/16/2020 (MEDICAID REPLACEMENT - HMO) Ti Araujo [id number] Ti Araujo 06/25/2019 1 [employer] PRIOR TO 09/16/2020 (MEDICAID REPLACEMENT - HMO) Ti Araujo [id number] Ti Araujo 07/04/2019 1 [employer] PRIOR TO 09/16/2020 (MEDICAID REPLACEMENT - HMO) Ti Araujo [id number] Ti Araujo 07/18/2019 1 [employer] PRIOR TO 09/16/2020 (MEDICAID REPLACEMENT - HMO) Ti Araujo [id number] Ti Araujo 11/18/2019 1 [employer] PRIOR TO 09/16/2020 (MEDICAID REPLACEMENT - HMO) Ti Araujo [id number] Ti Araujo Notes Date Note Type Note Provider Name and Address Organization Details Recorded Time 05/05/2019 text/html Generic HPI TemplateReported bypatient.Notes:Here to establish care with a new PCP per Marianne.diagnosed case chronic abd pain h/o gallstone pancreatitis s/p cholecystectomy was admitted to [facility] 03/15- 03/22/2019 following increasing abd pain and weight loss. Hb was 5.7 no overt bleeding.Had blood transfusion and had extensive w/u including EGD/colonoscopy MRI liver and CT adrenal gland to r/o malignancy.pt has scheduled appt with , GI (also capsular endoscopy this Sunday) and Master Sheet Clerk , to be seen tomorrow. Pt said he had a hernia mesh removed about 5 yrs ago, since then he is having this chronic abd pain. denies issue with appetite nor bowel movement.Denies dysuria /issue with peeing.Denies use of recent ETOH. Still smokes 15 cig/day.Already had flu shot this year per the pt. Jessica Ye MD Attn: Accounting,[address] [facility], [place], [address], [facility] 05/05/2019 21:47:31 06/25/2019 text/html Generic HPI TemplateReported bypatient.Notes:Here to establish care with a new PCP per Marianne.diagnosed case chronic abd pain h/o gallstone pancreatitis s/p cholecystectomy was admitted to [facility] 03/15- 03/22/2019 following increasing abd pain and weight loss. Hb was 5.7 no overt bleeding.Had blood transfusion and had extensive w/u including EGD/colonoscopy MRI liver and CT adrenal gland to r/o malignancy.pt has scheduled appt with , GI (also capsular endoscopy this Sunday) and Master Sheet Clerk , to be seen tomorrow. Pt said he had a hernia mesh removed about 5 yrs ago, since then he is having this chronic abd pain. denies issue with appetite nor bowel movement.Denies dysuria /issue with peeing.Denies use of recent ETOH. Still smokes 15 cig/day.Already had flu shot this year per the pt.06/25/19'[facility] called because PT is getting a procedure tomorrow but [facility] is thinking he has bed bugs and dont really want him in the hospital' per the call this morningSpoke to the pt . Denies having any rash/ bite varner nor itching at this time. Planning for the probable LN biospy in axilla next Sunday Jessica Ye MD Attn: Accounting,[address] [facility], [place], [address], [facility] 06/25/2019 15:59:43 07/04/2019 text/html Generic HPI TemplateReported bypatient.Notes:Here to establish care with a new PCP per Marianne.diagnosed case chronic abd pain h/o gallstone pancreatitis s/p cholecystectomy was admitted to [facility] 03/15- 03/22/2019 following increasing abd pain and weight loss. Hb was 5.7 no overt bleeding.Had blood transfusion and had extensive w/u including EGD/colonoscopy MRI liver and CT adrenal gland to r/o malignancy.pt has scheduled appt with , GI (also capsular endoscopy this Sunday) and Master Sheet Clerk , to be seen tomorrow. Pt said he had a hernia mesh removed about 5 yrs ago, since then he is having this chronic abd pain. denies issue with appetite nor bowel movement.Denies dysuria /issue with peeing.Denies use of recent ETOH. Still smokes 15 cig/day.Already had flu shot this year per the pt.07/04/19Had axillary LN biopsy- was not cancerous per the ptstill having abd pin with no other diarrhoea/nausea. On omeprazole, under care by the GIPt denies having stress needing medication at this time,. Jessica Ye MD Attn: Accounting,[address] [place], [address], [place] [facility] 07/04/2019 16:01:48 07/18/2019 text/html Generic HPI TemplateReported bypatient.Notes:Here to establish care with a new PCP per Marianne.diagnosed case chronic abd pain h/o gallstone pancreatitis s/p cholecystectomy was admitted to [facility] 03/15- 03/22/2019 following increasing abd pain and weight loss. Hb was 5.7 no overt bleeding.Had blood transfusion and had extensive w/u including EGD/colonoscopy MRI liver and CT adrenal gland to r/o malignancy.pt has scheduled appt with , GI (also capsular endoscopy this Sunday) and Master Sheet Clerk , to be seen tomorrow. Pt said he had a hernia mesh removed about 5 yrs ago, since then he is having this chronic abd pain. denies issue with appetite nor bowel movement.Denies dysuria /issue with peeing.Denies use of recent ETOH. Still smokes 15 cig/day.Already had flu shot this year per the pt.07/04/19Had axillary LN biopsy- was not cancerous per the ptstill having abd pain with no other diarrhoea/nausea. On omeprazole, under care by the GIPt denies having stress needing medication at this time,.Did see . Jessica Ye MD Attn: Accounting,[address] , [place], [address], [facility] 07/18/2019 14:47:12 11/18/2019 text/html COPDReported bypatient.Onset/Timin g:intermittent Severity:not limitingNotes:Had been using incuse and ventolin per his previous PCP- wants refillGeneric HPI TemplateReported bypatient.Notes:Here to establish care with a new PCP per Marianne.diagnosed case chronic abd pain h/o gallstone pancreatitis s/p cholecystectomy was admitted to [facility] 03/15- 03/22/2019 following increasing abd pain and weight loss. Hb was 5.7 no overt bleeding.Had blood transfusion and had extensive w/u including EGD/colonoscopy MRI liver and CT adrenal gland to r/o malignancy.pt has scheduled appt with , GI (also capsular endoscopy this Sunday) and Master Sheet Clerk , to be seen tomorrow. Pt said he had a hernia mesh removed about 5 yrs ago, since then he is having this chronic abd pain. denies issue with appetite nor bowel movement.Denies dysuria /issue with peeing.Denies use of recent ETOH. Still smokes 15 cig/day.Already had flu shot this year per the pt.07/04/19Had axillary LN biopsy- was not cancerous per the ptstill having abd pain with no other diarrhoea/nausea. On omeprazole, under care by the GIPt denies having stress needing medication at this time,.Did see . 11/18/19Very poor historianWants inhaler- has been using probably ventolin also incruse per before Patient verbally consented for the phone visit Jessica Ye MD Attn: Accounting,[address] [facility], [place], [address], [facility] 11/18/2019 15:14:52
--- OUTSIDE RECORDS SUMMARY | 2024-06-16 13:07 | XMS_ITS | Clinical Summary ---
Author Organization [facility] Address [address] [place] [id number] Care Team Providers Care Studio Technician Video Operator Name Role Phone Unavailable Primary Care Provider Unavailabl e Social History Tobacco Use Types Packs/Day Years Used Date Smoking Tobacco: Never Assessed Sex and Gender Information Value Date Recorded Sex Assigned at Not on file Legal Sex Male 8:09 PM CDT Gender Identity Not on file Sexual Orientation Not on file Plan of Treatment Health Maintenance Due Date Last Done Comments Colorectal Cancer Screening Colonoscopy (10 Years) 1963 Annual Physical 1966 Hepatitis C 1981 DTaP, Tdap and Td Vaccines ( 1 - Tdap) 1982 Zoster Vaccines (1 of 2) 2013 COVID-19 Vaccine ( - 2023-2 5 season) 2023 Influenza Adult (#1) 2023 RSV Immunization or 60+ Years (1 - 1-dose 75+ series) 2038 Meningococcal B Vaccine Aged Out No l onger eligible based on patient's age to complete this topic Meningococcal Vaccine Aged Out No edgardo nadege eligible based on patient's age to complete this topic Pneumococcal Vaccine: Pediat rics (0 to 5 Years) and At-Risk Patients (6 to 64 Years) Aged Out No longer eligible b ased on patient's age to complete this topic RSV Immunizations Under 20 Months Aged Out No longer eligible based on patient's age to complete this topic
--- OUTSIDE RECORDS SUMMARY | 2024-06-16 13:08 | XMS_ITS ---
Author Organization [facility] Care Team Providers Care Store Merchandiser Name Role Phone Vijaya Biggs Unavailable Unavailable Mallika, Maryan Espinal Unavailable Unavaila kaylin Plasencia, Casey Smart Unavailable Unavailable Luis Angel, Tamela Unavailable Unavailable RickieLaura andrews Unavailable Unavailable Allergies and adverse reactions Code CodeSystem Substance Reaction Severity StartDate Concern Status 7984 RXNORM Penicillin Unknown 11/09/2021 active Care Team Name Role Address Phone Organization Dates Casey Plasencia PCP [address] [place], [place], [facility], [facility] (Office): [facility] 11/10/2021 - 02/16/2023 Vijaya Biggs Attending Physician [address] (Office): [facility] 11/10/2021 - 02/16/2023 Maryan Tena Attending Physician [address] (Office): : [facility] 11/10/2021 - 02/16/2023 Tamela Plasencia Attending Physician [address] (Office): : [facility] 11/10/2021 - 02/16/2023 Laura Damian Attending Physician [address] [place], [address], [place] (Office): [facility] 11/10/2021 - 02/16/2023 Goals Section Description Status Target Date Current level of care is marilyn ropriate considering current physical/ social/ emotional status. Active 05/04/2023 If the resident's heart stop s, or if they stop breathing, CPR will NOT be initiated in honor with their DNR wishes. Active 05/04 If the resident's heart stop s, or if they stop breathing, CPR will NOT be initiated in honor with their DNR wishes. Active 05/04 Minimize the risk of residen t exposure to the novel Coronavirus (COVID-19). Active 05/04/2023 Resident Discharge needs will be identified Acti ve 05/04/2023 Resident risk for recurrence of urinary tract infection will be minimized through next review Active 05/04/2023 Resident will be kept clean, dry and comfortable daily through next review Active 05/04/2023 Resident will be maintained at their respiratory baseline with a patent airway and unlabored respirations through next review date. Active 05/04/2023 Resident will maintain a saf e and highest level of functioning through next review Active 05/04/2023 Resident will not develop an y complications associated with incontinence through next review. Active 05/04/2023 Resident will remain in the facility per family and residents wishes. Active 05/04/2023 Resident will smoke safely at designated area(s) thru next review: Active 05/04/2023 Resident's Advance Directive s are in effect, and their wishes and directions will be carried out in accordance with their advanced directives. Active 05/04/2023 Resident's needs will be ant icipated and met by staff through next review date: Active 05/04/2023 Ti a serious fall related injury Active 05/04/2023 Ti risk for adverse effec ts related to use of opioids will be minimized through next review date. Active 05/04/2023 Ti will be free of compli cations related to ADL deficit through next review date: Active 05/04/2023 Ti will be kept clean and comfortable through next review date. Active 05/04/2023 Ti will be/remain free of psychotropic drug related complications, including abnormal movement disorder, discomfort, hypotension, gait disturbance, ADL decline or cognitive/behavioral impairment through review date. Active 05/04/2023 Ti will have a regular marilyn wel elimination pattern AEB soft/formed bowel movements at least once every three days through the next review: Active 05/04/2023 Ti will have adequate flu id volume balance AEB good skin turgor, pink & moist mucous membranes, and sufficient fluid intake through next review. Active 05/04/2023 Ti will have no complications related to oral health concerns Active 05/04/2023 Ti will maintain intact s kin or current condition of skin integrity through next review date. Active 05/04/2023 Ti will not have complica tions related to aspiration through the review date. Active 05/04/2023 Ti will receive the least dosage of the prescribed psychotropic drug(s) to ensure maximum functional ability both mentally and physically through next review date. Active 05/04/2023 Ti will state/demonstrate relief or reduction in pain intensity within one hour after receiving interventions through next review date. Active 05/04/2023 Ti's comfort will be maintained through the r eview date. Active 05/04/2023 Ti's dietary PREFERENCES will be honored thro [facility] next review. Active 05/04/2023 Ti's dignity and autonomy will be maintained at highest level through the review date. Active 05/04/2023 The patient will display adequate nutrition Acti ve 05/04/2023 The resident will have impro cris mood state (SPECIFY: happier, calmer appearance, no s/sx of depression, anxiety or sadness) through the review date. Active 05/04/2023 The resident will have no in dications of psychosocial well-being problem by/through review date. Active 05/04/2023 The resident will maintain l ab values within acceptable parameters per physician or receive planned treatment for management of lab values through review date. Active 05/04/2023 The resident will maintain o ptimal quality of life within limitation imposed by visual function through the review date. Active 05/04/2023 The resident will participat e in at least one leisure activity of choice per week. Active 05/04/2023 The resident will remain bj e of complications related to altered hematological status through the review date. Active 05/04/19 24 Immunizations Immunization Status Vaccine Details Vaccine Code CodeSystem Date Notes TB 1 Step Mantoux (PPD) completed tuberculin skin test; unspecified formulation lotNumber: [id number] expiry: 08/10/2023 Given 0.1 ml Left Forearm subcutaneously 98 CVX created date: 08/03/2022 consent date: 08/03/2022 administer ed date: 08/16/2022 SARS-COV-2 (COVID-19) completed SARS-COV-2 (COVID-19) vaccine, mRNA, spike protein, LNP, preservative free, 30 mcg/0.3mL dose Step 2 of Multi-step with next step required 208 CVX created date: 11/10/2021 administer ed date: 10/23/2020 SARS-COV-2 (COVID-19) completed SARS-COV-2 (COVID-19) vaccine, mRNA, spike protein, LNP, preservative free, 30 mcg/0.3mL dose Step 1 of Multi-step with next step required 208 CVX created date: 11/10/2021 administer ed date: 10/02/2020 Flucelvax (Influenza vaccine) completed Influenza, split virus, quadrivalent, injectable, preservative free lotNumber: [id number] expiry: 09/16/2023 Given 0.5 ml Right Deltoid intramuscularly 150 CVX created date: 01/04/2023 consent date: 01/04/2023 administer ed date: 01/22/2023 Educated by Katarzyna Borden RN on 01/03/2023 Flucelvax (Influenza vaccine) completed Influenza, split virus, quadrivalent, injectable, preservative free lotNumber: [id number] expiry: 09/15/2022 Given Left Thigh intramuscularly 150 CVX created date: 04/20/2022 consent date: 04/20/2022 administer ed date: 04/21/2022 SARS-COV-2 Bivalent Booster- Pfizer completed SARS-COV-2 (COVID-19) vaccine, mRNA, spike protein, LNP, bivalent, preservative free, 30 mcg/0.3 mL dose, radha-sucrose formulation lotNumber: [id number] expiry: 10/17/2022 Given Left Deltoid intramuscularly 300 CVX created date: 03/03/2022 consent date: 03/03/2022 administer ed date: 03/02/2022 Pneumovax (PCV 20) completed Pneumococcal conjugate vaccine 20-valent (PCV20), polysaccharide [id number] conjugate, adjuvant, preservative free lotNumber: [id number] expiry: 09/15/2022 Given Left Thigh intramuscularly 216 CVX created date: 04/20/2022 consent date: 04/20/2022 administer ed date: 04/21/2022 COVID Vaccine (Moderna Spikevax) new SARS-COV-2 (COVID-19) vaccine, mRNA, spike protein, LNP, preservative free, 50 mcg/0.5 mL dose 312 CVX created date: 02/20/2023 consent date: 02/20/2023 Educated by Katarzyna Borden RN on 02/20/2023 Medications Section Medication Name Status Code CodeSystem Dose Route Frequency Admin Type Sig Text Start Date End Date Hyoscyamine Sulfate Tablet 0.125 MG active 8440895 RXNORM 1 tablet Oral as needed PRN Give 1 tablet by mouth every 4 hours as needed for increa sed secret ion 2021 - Fleet Enema active 1 applic ation Rectal as needed PRN Insert 1 applic ation rectal ly as needed for for consti pation If no result s 1 day after suppos itory. 2021 - Bisacodyl Suppository 10 MG active 632690 RXNORM 1 suppos itory Rectal as needed PRN Insert 1 suppos itory rectal ly as needed for for consti pation daily if no result s for MOM 2021 - Dulcolax Tablet Delayed Release active 1 unit Oral two times a day Routine Give 1 unit by mouth two times a day relate d to CONSTI PATION , UNSPEC IFIED (K59.0 0) 2021 - Pancrelipase (Osm-Toft-Gjf l) Capsule Delayed Release Particles [id number] UNIT active 183935 RXNORM 2 capsul e Oral with meals Routine Give 2 capsul e by mouth with meals for PANCRE ATIC INSUFF IENCY 2021 - Milk of Magnesia Suspension 400 MG/5ML active 315584 RXNORM 30 ml Oral as needed PRN Give 30 ml by mouth as needed for Consti pation at bedtim e if not BM in 3 days 2021 - Acetaminophen Suppository 650 MG active 318963 RXNORM 1 suppos itory Rectal as needed PRN Insert 1 suppos itory rectal ly every 4 hours as needed for fever >101 Non-Ph arm Interv ention s- 1 =music , aromat herapy , light touch/ massag e 2 =Remin iscenc e,real ity orient ation, valida tion therap y 3 =exerc ise, activi ties 4 =1:1 intera ction, pet therap y 5 =Reduc ed stimul ation, quiet area 2021 - Metoclopramid e HCl Tablet 10 MG active 181068 RXNORM 1 tablet Oral before meals and at bedtime Routine Give 1 tablet by mouth before meals and at bedtim e for nausea 2021 - Omeprazole 20 MG Capsule delayed release active 800924 RXNORM 1 capsul e Oral one time a day Routine Give 1 capsul e by mouth one time a day for acid reflux 2021 - Acetaminophen Tablet 325 MG active 721301 RXNORM 2 tablet Oral as needed PRN Give 2 tablet by mouth every 6 hours as needed for Genera l Discom fort Non-Ph arm Interv ention s- 1 =music , aromat herapy , light touch/ massag e 2 =Remin iscenc e,real ity orient ation, valida tion therap y 3 =exerc ise, activi ties 4 =1:1 intera ction, pet therap y 5 =Reduc ed stimul ation, quiet area 2021 - HYDROmorphone HCl Tablet 2 MG active 530929 RXNORM 1 tablet Oral as needed PRN Give 1 tablet by mouth every 4 hours as needed for pain 2021 - LORazepam Oral Tablet 1 MG active RXNORM 1 mg Oral as needed PRN Give 1 mg by mouth every 4 hours as needed for anxiet y and dyspne a 2022 - LORazepam Oral Tablet 1 MG active RXNORM 1 mg Oral four times a day Routine Give 1 mg by mouth four times a day for Anxiet y and dyspne a 2022 - Sennosides-Do cusate Sodium Tablet 8.6-50 MG active 167509 RXNORM 2 tablet Oral two times a day Routine Give 2 tablet by mouth two times a day for Rain chaudhry 2022 - DULoxetine HCl Capsule Delayed Release Sprinkle 30 MG active 700980 RXNORM 2 capsul e Oral one time a day Routine Give 2 capsul e by mouth one time a day relate d to DEPRES PAMELA, UNSPEC IFIED (F32.A ) 2022 - Methadone HCl Oral Tablet 5 MG active 168395 RXNORM 1.5 tablet Oral three times a day Routine Give 1.5 tablet orally three times a day relate d to OTHER CHRONI C PAIN (G89.2 9) Give 7.5mg Three times a Day 2022 - Promethazine HCl Tablet 12.5 MG active 259635 RXNORM 1 tablet Oral as needed PRN Give 1 tablet by mouth every 6 hours as needed for Nausea and Vomiti ng 2022 - GlycoLax Powder active 454364 RXNORM 17 gram Oral one time a day Routine Give 17 gram by mouth one time a day for rain chaudhry (in 8 ounces of Liquid ) 2022 - Mental Status Section Date Assessment Total Score Description 01/18/2023 CAM 0 No delirium ind icated 01/11/2023 CAM 0 No delirium ind icated Problems Problem # Description Date of onset Resolved Date Code CodeSystem Concern Status 1 ANEMIA, UNSPECIFIED 01/12/[address] active 2 CHRONIC OBSTRUCTIVE PULMONARY DISEASE, UNSPECIFIED 01/12/[address] active 3 PNEUMONIA, UNSPECIFIED ORGANISM 01/12/[address] active 4 SHORTNESS OF BREATH 01/12/[address] active 5 ANXIETY DISORDER, UNSPECIFIED 08/15/[address] active 6 CONGENITAL HIATUS HERNIA 08/15/[address] active 7 UNSPECIFIED CONVULSIONS 08/15/[address] active 8 UNSPECIFIED HEMORRHOIDS 08/15/[address] active 9 COGNITIVE COMMUNICATION DEFICIT 07/20/2022 11/07/[address] completed 10 COVID-19 06/13/2022 06/26/[address] compl eted 11 DYSPHAGIA, UNSPECIFIED 03/31/2022 06/22/[address] completed 12 CONSTIPATION, UNSPECIFIED 12/21/[address] active 13 PERSONAL HISTORY OF COVID-19 11/20/2021 12/01/[address] completed 14 ADULT FAILURE TO THRIVE 11/09/[address] active 15 ANEMIA, UNSPECIFIED 11/09/2021 06/22/[address] completed 16 CACHEXIA 11/09/[address] active 17 COVID-19 11/09/2021 11/20/[address] compl eted 18 DEPRESSION, UNSPECIFIED 11/09/2021 06/22/[address] completed 19 MAJOR DEPRESSIVE DISORDER, RECURRENT, UNSPECIFIED 11/09/[address] active 20 OTHER CHRONIC PAIN 11/09/[address] active 21 OTHER FOLATE DEFICIENCY ANEMIAS 11/09/[address] active 22 RETENTION OF URINE, UNSPECIFIED 11/09/[address] active 23 UNSPECIFIED SEVERE PROTEIN-CALORIE MALNUTRITION 11/09/[address] active Reason for Referral No Reasons for Referral Entered Social History Social History Observation Description Start Date End Date Code Code System Current Smoking Status Tobacco smoking consumption unknown 502431261 SNOMED CT Sex Assigned At Male 1965 79590-7 [facility] Vital Signs Code Code System Vitals Name Values and Units Timing Information 67667-7 [facility] Pain Level Value=0.0 03/11/2023 25016-8 LO[facility] Weight Value=92.5 Units=Lbs 11/0 11/2022 12004-1 [facility] O2 % BldC Oximetry Value=91.0 Units= % 10/21/2022 9279-1 INC Respiratory Rate Value=20.0 Units=/m in 10/18/2022 8462-4 LOINC Blood Pressure-Diastolic Value=78 Un its=mmHg 10/18/2022 8480-6 LOINC Blood Pressure-Systolic Duoic=398 Un its=mmHg 10/18/2022 8310-5 LOINC Body Temperature Value=96.4 Units= F 10/18/2022 8867-4 [facility] Heart rate Value=89.0 Units=/min 04/2022 8302-2 [facility] Height Value=66.0 Units=Inches 11/17/2021
--- OUTSIDE RECORDS SUMMARY | 2024-06-16 13:08 | XMS_ITS | CONTINUITY OF CARE DOCUMENT ---
Author Name catalina, catalina Address Unknown Organization [facility] Address [address] [place] [address] Phone [phone] Care Team Providers Care Window Shade Installer Name Role Phone Stanton Hicks MD Unavailable [phone] JASS VALLEJO MD Unavailable [phone] JASS VALLEJO MD Unavailable PROBLEMS Condition Status Date Provider Notes Tachycardia active Roseann Erazo INSURANCE PROVIDERS Payer name Policy type / Coverage type [place] [employer] party ID [facility] Medicaid [id number] HISTORY OF PROCEDURES Procedure Date Procedure Name Provider Procedure Notes S tatus Yared, 24 or 48 Stanton Hicks MD co mpleted
[2024-06-16 13:44] VITALS: BP 109/65; PULSE 88; RESP 16; TEMP 37; O2SAT 100
[2024-06-16 14:11] LABS: Basophils Absolute Auto 0.1 K/mm3 (0.0-0.1); Eosinophils Absolute Auto 0.1 K/mm3 (0-0.3); Eosinophils Percent Auto 1.4 % (0-4.4); Hematocrit 41.8 % (42.0-52.0); Immature Granulocyte Absolute 0.01 K/mm3 (0.00-0.031); Immature Granulocyte Percent A 0.2 % (0-0.5); Lymphocytes Absolute Auto 1.61 K/mm3 (0.9-3.2); Mean Corpuscular HGB Conc 33.5 g/dl (32-36); Mean Corpuscular Hemoglobin 30.4 pg (26-34); Mean Corpuscular Volume 90.7 fl (80-100); Mean Platelet Volume 8.5 fl (7.4-10.4); Monocytes Absolute Auto 0.5 K/mm3 (0.1-0.6); Monocytes Percent Auto 10.7 % (2.6-8.5); Neutrophils Absolute Auto 2.6 K/mm3 (1.3-6.7); Neutrophils Percent Auto 53.7 % (45.5-73.1); Platelet Count Result 352 k/mm3 (150-375); Red Blood Count 4.61 M/mm3 (4.6-6.20); Red Cell Distribution Width 13.6 % (11.5-14.5); White Blood Count 4.9 K/mm3 (4.5-10.0)
[2024-06-16 14:23] LABS: Alanine Aminotransferase 18 U/L (6-50); Albumin Level 4.6 g/dL (3.5-5.1); Alkaline Phosphatase 56 U/L (38-126); Anion Gap 12 mmol/L (4-12); Aspartate Amino Transferase 23 U/L (17-59); Bilirubin,Total 0.4 mg/dL (0.2-1.3); Blood Urea Nitrogen 9 mg/dL (9-20); Calcium 9.2 mg/dL (8.4-10.2); Carbon Dioxide 24 mmol/L (22-30); Chloride 105 mmol/L (98-107); Estimated Glomerular Filt Rate > 60; Glucose 90 mg/dL (65-110); Lipase 62 U/L (23-300); Potassium 3.3 mmol/L (3.4-5.0); Sodium 141 mmol/L (137-145)
[2024-06-16 14:51] LABS: Add Urine Microscopic? YES; Appearance Urine Clear (Clear); Bacteria Urine None Seen /hpf; Bilirubin Urine Negative (Negative); Blood Urine Negative (Negative); Color Urine Dark Yellow (Yellow); Glucose Urine UA Negative (Negative); Ketones Urine 3+ mg/dL (Negative); Leukocyte Esterase Ur Negative LEU/UL (Negative); Mucus Urine Present /lpf; Need Manual Microscopic Reviewed; Nitrate Urine Negative (Negative); Non Pathogenic Casts 0-2; Protein Urine 1+ mg/dL (Negative); Specific Grav Ur 1.037 (1.001-1.035); Squamous Epithelial Cell Urine None Seen /hpf (Few); WBC Urine 0-5 /hpf (0-3); pH Urine 5.5 (5.0-9.0)
[2024-06-16] MEDS: ACETAMINOPHEN 325 MG TABLET 650 MG PO (15:13)
--- OUTSIDE RECORDS SUMMARY | 2024-06-16 15:37 | XMS_ITS | Referral Summary ---
Author Organization [facility] Address [address] [place] [address] Care Team Providers Care Theater Projectionist Name Role Phone Jessica Rushing MD Primary [...] Pt reports not having bowel movement in fdc for 1-[address] demonstrated generalized dilatation [...] (06/24/2019): Added automatically from request for surgery [id number] Assessment & Plan (06/24/2019 4:33 PM CDT): [...] months. Assessment & Plan (04/08/2019 11:51 AM VENDETTE): Pt had EGD/colon and multiple imaging with no findings explaining anemia. Will schedule for small bowel capsule endoscopy to complete work up. Assessment & Plan (03/16/2019 4:50 AM VENDETTE): Patient had a hemoglobin of 16.3 in June. He denies bleeding anywhere. He states he follows with GI in [place] and had an EGD and colonoscopy 8 months ago. Will need to obtain records. Suspect iron deficient anemia. Iron profile is in process. Will give 1 time dose of Ferrlecit for now as patient has not received PRBCs due to antibodies and is awaiting for PRBCs from [place]. GI has been consulted, will await their [...] biopsy. Assessment & Plan (04/08/2019 11:49 AM VENDETTE): So far, unable to find explanation for [...] years. Assessment & Plan (03/16/2019 4:53 AM VENDETTE): Over the last 2-3 years. Patient states [...] smoking. Assessment & Plan (03/16/2019 4:42 AM VENDETTE): Nicotine patch has been ordered Lactic acidosis 03/16/2019 Assessment & Plan (03/16/2019 4:48 AM VENDETTE): Suspect this is due to severe anemia. Lower abdominal pain 2019 Overview (03/16/2019): Added automatically from request for surgery [id number] Assessment & Plan (04/08/2019 11:51 AM VENDETTE): Constant aching and sometimes cramping abdominal pain [...] nonconclusive. Assessment & Plan (03/16/2019 4:42 AM VENDETTE): Chronic issue. Patient states he is followed by GI in [place]. Abdominal pain appears to be in the [...] week 12/28/2021 How often do you attend [facility] or taoist services? Never 12/28/2021 Do you belong to any clubs o r organizations such as jew groups, unions, fraternal or athletic groups, or [...] place to sleep or slept in a group home (including now)? No 12/28/2021 Personal Safety Answer Date Recorded Getting School Help Needed Not on file 05/13 Sex and Gender Information Value Date Recorded Sex Assigned at Not on file Legal Sex Male 4:56 PM VENDETTE Gender Identity Not on file Sexual Orientation [...] 10:30 AM CDT COLONOSCOPY 03/18/2019 8:31 AM VENDETTE from Last 3 Months or Most Recently Relevant to Health Maintenance Results * PSA diagnostic (09/27/2020 10:30 AM CDT) PSA-Total 0.60 <=3.90 ng/mL MARKIE MARSHALL ([place]) Comment: Interpretive Data AGE SEX REFERENCE INTERVAL 0 minutes-150 years Female None 0 minutes-49 years Male None 50-59 years Male 0-3.90 60-69 years Male 0-5.40 70-79 years Male 0-6.20 80-150 years Male 0-6.20 Current interpretive data last revised 2018. Testing performed by: [facility], [address] [place] [address]., [id number] Blood specimen (specimen) 09/27/2020 10:30 AM CDT 09/27/2020 5:28 PM CDT [facility] BLOOD ORDERABLES Final R esult MARKIE MARSHALL ([place]) 1 [facility] [place] [address] * COLONOSCOPY (03/18/2019 8:31 AM VENDETTE) Anatomical Region Laterality Modality Other Narrative Procedure Note Bubba Bailey MD - 03/18/2019 8:31 AM CST [facility] Patient Name: Ti Araujo Procedure Date: 03/18/2019 8:31 AM Date of : 1965 Admit Type: Inpatient Age: 54 Gender: Male Attending MD: Bubba Bailey M.D. Room: [facility] ENDOSCOPY ROOM 1 Note Status: Finalized [...] passed under direct vision.The Pediatric Colonoscope [id number] was introduced through the anus and advanced [...] 8:31 AM Procedure Code(s): --- Professional --- 69580, Colonoscopy, flexible; with biopsy, single or multiple Diagnosis Code(s): --- Professional --- K64.8, Other hemorrhoids D12.4, Benign neoplasm of descending colon R19.7, Diarrhea, unspecified D50.9, Iron deficiency anemia, unspecified K57.30, Diverticulosis of large intestine without perforation orabscess without bleeding CPT copyright 2017 [employer]. All rights reserved. The codes documented in this report are preliminary and upon scientific advisor reviewmay be revised to meet current compliance requirements. 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
--- OUTSIDE RECORDS SUMMARY | 2024-06-16 15:37 | XMS_ITS | CONTINUITY OF CARE DOCUMENT ---
Author Name catalina, catalina Address Unknown Organization [facility] Address [address] [place] [address] Phone [phone] Care Team Providers Care Crossword Puzzle Maker Name Role Phone Stanton Hicks MD Unavailable [phone] JASS VALLEJO MD Unavailable JASS VALLEJO MD Unavailable [phone] PROBLEMS Condition Status Date Provider Notes Tachycardia active Roseann Erazo INSURANCE PROVIDERS Payer name Policy type / Coverage type [place] [employer] party ID [facility] Medicaid [id number] HISTORY OF PROCEDURES Procedure Date Procedure Name Provider Procedure Notes S tatus Yared, 24 or 48 Stanton Hicks MD co mpleted
--- OUTSIDE RECORDS SUMMARY | 2024-06-16 15:37 | XMS_ITS ---
Author Organization [facility] Care Team Providers Care Petrographer Name Role Phone Vijaya Biggs Unavailable Unavailable Mallika, Maryan Espinal Unavailable Unavaila kaylin Plasencia, Casey Smart Unavailable Unavailable Luis Angel, Tamela Unavailable Unavailable RickieLaura andrews Unavailable Unavailable Allergies and adverse reactions Code CodeSystem Substance Reaction Severity StartDate Concern Status 7984 RXNORM Penicillin Unknown 11/09/2021 active Care Team Name Role Address Phone Organization Dates Casey Plasencia PCP [address] [place], [place], [facility], [facility] (Office): [facility] 11/10/2021 - 02/16/2023 Vijaya Biggs Attending Physician [address] (Office): [facility] 11/10/2021 - 02/16/2023 Maryan Tena Attending Physician [address] (Office): : [facility] 11/10/2021 - 02/16/2023 Tamela Plasencia Attending Physician [address] (Office): : [facility] 11/10/2021 - 02/16/2023 Laura Damian Attending Physician [address] [place], [address], [place] (Office): [facility] 11/10/2021 - 02/16/2023 Goals Section Description Status [...] Ti's dietary PREFERENCES will be honored thro [facility] next review. Active 05/04/2023 Ti's dignity and [...] completed tuberculin skin test; unspecified formulation lotNumber: [id number] expiry: 08/10/2023 Given 0.1 ml Left Forearm [...] split virus, quadrivalent, injectable, preservative free lotNumber: [id number] expiry: 09/16/2023 Given 0.5 ml Right Deltoid intramuscularly 150 CVX created date: 01/04/2023 consent date: 01/04/2023 administer ed date: 01/22/2023 Educated by Katarzyna Borden RN on 01/03/2023 Flucelvax (Influenza vaccine) completed Influenza, split virus, quadrivalent, injectable, preservative free lotNumber: [id number] expiry: 09/15/2022 Given Left Thigh intramuscularly 150 CVX created date: 04/20/2022 consent date: 04/20/2022 administer ed date: 04/21/2022 SARS-COV-2 Bivalent Booster- Pfizer completed SARS-COV-2 (COVID-19) vaccine, mRNA, spike protein, LNP, bivalent, preservative free, 30 mcg/0.3 mL dose, radha-sucrose formulation lotNumber: [id number] expiry: 10/17/2022 Given Left Deltoid intramuscularly 300 CVX created date: 03/03/2022 consent date: 03/03/2022 administer ed date: 03/02/2022 Pneumovax (PCV 20) completed Pneumococcal conjugate vaccine 20-valent (PCV20), polysaccharide [id number] conjugate, adjuvant, preservative free lotNumber: [id number] expiry: 09/15/2022 Given Left Thigh intramuscularly 216 [...] Date Hyoscyamine Sulfate Tablet 0.125 MG active 2527854 RXNORM 1 tablet Oral as needed PRN Give 1 tablet by mouth every 4 hours as needed for increa sed secret ion 2021 - Fleet Enema active 1 applic ation Rectal as needed PRN Insert 1 applic ation rectal ly as needed for for consti pation If no result s 1 day after suppos itory. 2021 - Bisacodyl Suppository 10 MG active 874791 RXNORM 1 suppos itory Rectal as needed [...] UNSPEC IFIED (K59.0 0) 2021 - Pancrelipase (Yuc-Fshj-Qwq l) Capsule Delayed Release Particles [id number] UNIT active 021023 RXNORM 2 capsul e Oral with meals Routine Give 2 capsul e by mouth with meals for PANCRE ATIC INSUFF IENCY 2021 - Milk of Magnesia Suspension 400 MG/5ML active 436977 RXNORM 30 ml Oral as needed PRN Give 30 ml by mouth as needed for Consti pation at bedtim e if not BM in 3 days 2021 - Acetaminophen Suppository 650 MG active 114020 RXNORM 1 suppos itory Rectal as needed [...] Metoclopramid e HCl Tablet 10 MG active 920254 RXNORM 1 tablet Oral before meals and at bedtime Routine Give 1 tablet by mouth before meals and at bedtim e for nausea 2021 - Omeprazole 20 MG Capsule delayed release active 483482 RXNORM 1 capsul e Oral one time a day Routine Give 1 capsul e by mouth one time a day for acid reflux 2021 - Acetaminophen Tablet 325 MG active 425779 RXNORM 2 tablet Oral as needed PRN [...] - HYDROmorphone HCl Tablet 2 MG active 105328 RXNORM 1 tablet Oral as needed PRN [...] Sennosides-Do cusate Sodium Tablet 8.6-50 MG active 149273 RXNORM 2 tablet Oral two times a day Routine Give 2 tablet by mouth two times a day for Rain chaudhry 2022 - DULoxetine HCl Capsule Delayed Release Sprinkle 30 MG active 199239 RXNORM 2 capsul e Oral one time a day Routine Give 2 capsul e by mouth one time a day relate d to DEPRES PAMELA, UNSPEC IFIED (F32.A ) 2022 - Methadone HCl Oral Tablet 5 MG active 145354 RXNORM 1.5 tablet Oral three times a day Routine Give 1.5 tablet orally three times a day relate d to OTHER CHRONI C PAIN (G89.2 9) Give 7.5mg Three times a Day 2022 - Promethazine HCl Tablet 12.5 MG active 864180 RXNORM 1 tablet Oral as needed PRN Give 1 tablet by mouth every 6 hours as needed for Nausea and Vomiti ng 2022 - GlycoLax Powder active 273031 RXNORM 17 gram Oral one time a [...] CodeSystem Concern Status 1 ANEMIA, UNSPECIFIED 01/12/[address] active 2 CHRONIC OBSTRUCTIVE PULMONARY DISEASE, UNSPECIFIED 01/12/[address] active 3 PNEUMONIA, UNSPECIFIED ORGANISM 01/12/[address] active 4 SHORTNESS OF BREATH 01/12/[address] active 5 ANXIETY DISORDER, UNSPECIFIED 08/15/[address] active 6 CONGENITAL HIATUS HERNIA 08/15/[address] active 7 UNSPECIFIED CONVULSIONS 08/15/[address] active 8 UNSPECIFIED HEMORRHOIDS 08/15/[address] active 9 COGNITIVE COMMUNICATION DEFICIT 07/20/2022 11/07/[address] completed 10 COVID-19 06/13/2022 06/26/[address] compl eted 11 DYSPHAGIA, UNSPECIFIED 03/31/2022 06/22/[address] completed 12 CONSTIPATION, UNSPECIFIED 12/21/[address] active 13 PERSONAL HISTORY OF COVID-19 11/20/2021 12/01/[address] completed 14 ADULT FAILURE TO THRIVE 11/09/[address] active 15 ANEMIA, UNSPECIFIED 11/09/2021 06/22/[address] completed 16 CACHEXIA 11/09/[address] active 17 COVID-19 11/09/2021 11/20/[address] compl eted 18 DEPRESSION, UNSPECIFIED 11/09/2021 06/22/[address] completed 19 MAJOR DEPRESSIVE DISORDER, RECURRENT, UNSPECIFIED 11/09/[address] active 20 OTHER CHRONIC PAIN 11/09/[address] active 21 OTHER FOLATE DEFICIENCY ANEMIAS 11/09/[address] active 22 RETENTION OF URINE, UNSPECIFIED 11/09/[address] active 23 UNSPECIFIED SEVERE PROTEIN-CALORIE MALNUTRITION 11/09/[address] active Reason for Referral No Reasons for Referral Entered Social History Social History Observation Description Start Date End Date Code Code System Current Smoking Status Tobacco smoking consumption unknown 076591577 SNOMED CT Sex Assigned At Male 1965 20148-0 [facility] Vital Signs Code Code System Vitals Name Values and Units Timing Information 32477-3 [facility] Pain Level Value=0.0 03/11/2023 95948-8 LOINC Weight Value=92.5 Units=Lbs 11/0 11/2022 18380-7 [facility] O2 % BldC Oximetry Value=91.0 Units= % 10/21/2022 9279-1 INC Respiratory Rate Value=20.0 Units=/m in 10/18/2022 8462-4 LOINC Blood Pressure-Diastolic Value=78 Un its=mmHg 10/18/2022 8480-6 LOINC Blood Pressure-Systolic Pzpct=694 Un its=mmHg 10/18/2022 8310-5 LOINC Body Temperature Value=96.4 Units= F 10/18/2022 8867-4 [facility] Heart rate Value=89.0 Units=/min 04/2022 8302-2 [facility] Height Value=66.0 Units=Inches 11/17/2021
--- OUTSIDE RECORDS SUMMARY | 2024-06-16 15:37 | XMS_ITS | Clinical Summary ---
Author Organization [facility] Address [address] [place] [address] Care Team Providers Care Impregnating Machine Operator Name Role Phone Jessica Rushing [...] Pt reports not having bowel movement in correction for 1-[address] demonstrated generalized dilatation [...] (06/24/2019): Added automatically from request for surgery [id number] Assessment & Plan (06/24/2019 4:33 PM CDT): [...] months. Assessment & Plan (04/08/2019 11:51 AM LINK KNITTING MACHINE OPERATOR): Pt had EGD/colon and multiple imaging with no findings explaining anemia. Will schedule for small bowel capsule endoscopy to complete work up. Assessment & Plan (03/16/2019 4:50 AM LINK KNITTING MACHINE OPERATOR): Patient had a hemoglobin of 16.3 in June. He denies bleeding anywhere. He states he follows with GI in [place] and had an EGD and colonoscopy 8 months ago. Will need to obtain records. Suspect iron deficient anemia. Iron profile is in process. Will give 1 time dose of Ferrlecit for now as patient has not received PRBCs due to antibodies and is awaiting for PRBCs from [place]. GI has been consulted, will await [...] biopsy. Assessment & Plan (04/08/2019 11:49 AM LINK KNITTING MACHINE OPERATOR): So far, unable to find explanation for [...] years. Assessment & Plan (03/16/2019 4:53 AM LINK KNITTING MACHINE OPERATOR): Over the last 2-3 years. Patient states [...] smoking. Assessment & Plan (03/16/2019 4:42 AM LINK KNITTING MACHINE OPERATOR): Nicotine patch has been ordered Lactic acidosis 03/16/2019 Assessment & Plan (03/16/2019 4:48 AM LINK KNITTING MACHINE OPERATOR): Suspect this is due to severe anemia. Lower abdominal pain 2019 Overview (03/16/2019): Added automatically from request for surgery [id number] Assessment & Plan (04/08/2019 11:51 AM LINK KNITTING MACHINE OPERATOR): Constant aching and sometimes cramping abdominal pain [...] nonconclusive. Assessment & Plan (03/16/2019 4:42 AM LINK KNITTING MACHINE OPERATOR): Chronic issue. Patient states he is followed by GI in [place]. Abdominal pain appears to be in the [...] 12/28/2021 How often do you attend [employer] or taoist services? Never 12/28/2021 Do you belong to any clubs o r organizations such as samaritan groups, unions, fraternal or athletic groups, or [...] place to sleep or slept in a prison (including now)? No 12/28/2021 Personal Safety Answer Date Recorded Getting School Help Needed Not on file 05/13 Sex and Gender Information Value Date Recorded Sex Assigned at Not on file Legal Sex Male 4:56 PM LINK KNITTING MACHINE OPERATOR Gender Identity Not on file Sexual Orientation [...] 10:30 AM CDT COLONOSCOPY 03/18/2019 8:31 AM LINK KNITTING MACHINE OPERATOR from Last 3 Months or Most Recently Relevant to Health Maintenance Results * PSA diagnostic (09/27/2020 10:30 AM CDT) PSA-Total 0.60 <=3.90 ng/mL KENCHANDLER MARSHALL ([place]) Comment: Interpretive Data AGE SEX REFERENCE INTERVAL 0 minutes-150 years Female None 0 minutes-49 years Male None 50-59 years Male 0-3.90 60-69 years Male 0-5.40 70-79 years Male 0-6.20 80-150 years Male 0-6.20 Current interpretive data last revised 2018. Testing performed by: [facility], [address] [place] [address], [facility] Blood specimen (specimen) 09/27/2020 10:30 AM CDT 09/27/2020 5:28 PM CDT [facility] BLOOD ORDERABLES Final R esult MARKIE JOANNA ([place]) 1 [facility] [place] [address] * COLONOSCOPY (03/18/2019 8:31 AM LINK KNITTING MACHINE OPERATOR) Anatomical Region Laterality Modality Other Narrative Procedure Note Bubba Bailey MD - 03/18/2019 8:31 AM CST [facility] Patient Name: Ti Araujo Procedure Date: 03/18/2019 8:31 AM Date of : 1965 Admit Type: Inpatient Age: 54 Gender: Male Attending MD: Bubba Bailey M.D. Room: [facility] ENDOSCOPY ROOM 1 Note Status: Finalized [...] passed under direct vision.The Pediatric Colonoscope [id number] was introduced through the anus and advanced [...] 8:31 AM Procedure Code(s): --- Professional --- 75592, Colonoscopy, flexible; with biopsy, single or multiple Diagnosis Code(s): --- Professional --- K64.8, Other hemorrhoids D12.4, Benign neoplasm of descending colon R19.7, Diarrhea, unspecified D50.9, Iron deficiency anemia, unspecified K57.30, Diverticulosis of large intestine without perforation orabscess without bleeding CPT copyright 2017 [employer]. All rights reserved. The codes documented in this report are preliminary and upon information scientist reviewmay be revised to meet current compliance requirements. Recognized by the [place] [employer] for promoting quality in endoscopy Bubba Bailey MD ENDOSCOPY PROCEDURES Final Result from Last 3 Months or Most Recently Relevant to Health Maintenance Insurance [facility] Advance Directives For more information, please contact: [phone] Documents on File Type Date Recorded Patient Propagator Laborer Expl anation ADVANCE DIRECTIVE 11/10/2021 3:54 PM [...] 9:01 PM 10/20/2021 1:59 PM Care Teams Impregnating Machine Operator Relationship Specialty Start Date End Date Jessica Rushing MD PCP - General 05/13/19
--- OUTSIDE RECORDS SUMMARY | 2024-06-16 15:37 | XMS_ITS | Clinical Summary ---
Author Organization [facility] Address [address] [place] [address] Care Team Providers Care Clinical Account Manager Name Role Phone Unavailable Primary Care Provider [...]
--- NOTE | 2024-06-16 18:09 | ED.ABDPAIN ---
HPI - Abdominal Pain General Chief Complaint: Abdominal Pain Stated Complaint: R. hip pain, nausea, abd. pain Time Seen by Provider: 06/16/24 14:08 History of Present Illness HPI narrative: Patient is a 59-year-old male who presents ER with right hip and groin pain. Intermittent and worsening over last week he has had chronic pain for over a year. Pain will come in waves will get nausea. No urinary symptoms. No diarrhea. Denies trauma to his extremities. Related Data Home Medications ?Medication ?Instructions ?Recorded ?Confirmed ?Last Taken ?Type acetaminophen 325 mg capsule 650 mg PO Q6H PRN Pain (Scale 02/18/21 10/16/23 Unknown History (Tylenol) Score 1-3) Fleet Enema See Rx Instructions .Route .COMPLEX 01/10/23 10/16/23 Unknown History rtczhc-tmsslgmy-ggctdqx 2 cap PO TIDWM 01/10/23 10/16/23 Unknown History 6,000-19,000-30,000 unit capsule,delayed rel (Creon) magnesium hydroxide 400 mg/5 mL 30 ml PO Q3-4D PRN Constipation 01/10/23 10/16/23 Unknown History oral suspension (Milk of Magnesia) sennosides 8.6 mg-docusate sodium 2 tab-cap PO BID 01/10/23 10/16/23 Unknown History 50 mg tablet (Senna with Docusate Sodium) acetaminophen 650 mg rectal 650 mg RECTAL Q4H PRN Fever Or Pain 09/05/23 10/16/23 Unknown History suppository albuterol sulfate 90 mcg/actuation 2 puff inhalation Q4H PRN 09/05/23 10/16/23 Unknown History aerosol inhaler Shortness Of Breath Or Wheezing bisacodyl 10 mg rectal suppository 10 mg RECTAL DAILY PRN Constipation 09/05/23 10/16/23 Unknown History budesonide-formoterol HFA 160 2 puff inhalation Q12H 09/05/23 10/16/23 Unknown History mcg-4.5 mcg/actuation aerosol inhaler duloxetine 30 mg capsule,delayed 60 mg PO DAILY 09/05/23 10/16/23 Unknown History release sprinkle famotidine 20 mg tablet 20 mg PO BID 09/05/23 10/16/23 Unknown History hyoscyamine sulfate 0.125 mg tablet 0.125 mg PO Q4H PRN Secretions 09/05/23 10/16/23 Unknown History omeprazole 20 mg capsule,delayed 20 mg PO DAILY 09/05/23 10/16/23 Unknown History release polyethylene glycol 3350 17 gram 17 g PO DAILY 09/05/23 10/16/23 Unknown History oral powder packet promethazine 12.5 mg tablet 12.5 mg PO Q6H PRN Nausea And 09/05/23 10/16/23 Unknown History Vomiting Allergies Allergy/AdvReac Type Severity Reaction Status Date / Time Penicillins Allergy Unknown Unknown Verified 06/16/24 11:37 Review of Systems Review of Systems: All systems reviewed & are unremarkable except as noted in HPI and below Constitutional: Constitutional: Reports no additional constitutional complaints ENT: Reports system reviewed and no additional complaints, except as documented Cardiovascular: Cardiovascular: Reports no additional cardiovascular complaints Respiratory: Respiratory: Reports no additional respiratory complaints Musculoskeletal: Musculoskeletal: Reports no additional musculoskeletal complaints PMFSH Past Medical History Medical History Abnormal CT scan, esophagus Anxiety Chronic diarrhea Hemorrhoids Seizure disorder Surgical History Surgical History History of cholecystectomy Family History Family History Father Acute myocardial infarction Social History Social History Smoking packs per day: 1 Smoking cigarettes per day: 20.0 Years smoked: 13 Smoking pack-years: 13.00 Smoking status: Current every day smoker Smoking end date: 03/19/15 Alcohol intake: never Substance use: never Substance use type: marijuana Do You Feel Safe in your Home?: Yes Lack of Transportation: No Lack of Food: Never True Current Housing: I Have Housing Concerned About Future Housing: No Difficulty Paying Gas/Electric Bills: No Difficulty Paying for Meds: No Currently Unemployed: No Education: High School Diploma/GED Difficulty w/ Childcare or Family Care: No Spiritual care concerns: No Exam Narrative: GENERAL: Well-appearing, well-nourished, and in no acute distress. HEAD: Normocephalic, atraumatic. EYES: PERRL and EOMI. ENT: Mucous membranes moist. CHEST: Clear to auscultation. No respiratory distress. HEART: Regular rate and rhythm. Normal peripheral pulses. ABDOMEN: Soft, nontender, nondistended. EXTREMITIES: Normal range of motion. No edema. SKIN: Warm, dry, no rash. NEURO: Alert and oriented x3. PSYCH: Normal mood and affect. Course Course Emergency Course: Unremarkable evaluation. No fractures or stones. No inguinal hernia. Appropriate for discharge and follow-up with PCP. Vital Signs Vital signs: Vital Signs Temperature 97.6 F 06/16/24 11:39 Pulse Rate 110 H 06/16/24 11:39 Respiratory Rate 16 06/16/24 11:39 Blood Pressure 102/61 06/16/24 11:39 Pulse Oximetry 100 06/16/24 11:39 Oxygen Delivery Room Air 06/16/24 11:39 Temperature 98.6 F 06/16/24 13:44 Pulse Rate 88 06/16/24 13:44 Respiratory Rate 16 06/16/24 13:44 Blood Pressure 109/65 06/16/24 13:44 Pulse Oximetry 100 06/16/24 13:44 Oxygen Delivery Room Air 06/16/24 11:39 MDM - Abdominal Pain Lab Data 06/16/24 14:01 06/16/24 14:01 Labs: Lab Results 06/16/24 06/16/24 Range/Units 14:01 14:37 WBC 4.9 (4.5-10.0) K/mm3 RBC 4.61 (4.6-6.20) M/mm3 Hgb 14.0 (14.0-18.0) g/dL Hct 41.8 L (42.0-52.0) % MCV 90.7 (80-100) fl MCH 30.4 (26-34) pg MCHC 33.5 (32-36) g/dl RDW 13.6 (11.5-14.5) % Plt Count 352 (150-375) k/mm3 MPV 8.5 (7.4-10.4) fl Immature Gran % (Auto) 0.2 (0-0.5) % Neut % (Auto) 53.7 (45.5-73.1) % Lymph % (Auto) 33.0 (18.3-44.2) % [place] % (Auto) 10.7 H (2.6-8.5) % Eos % (Auto) 1.4 (0-4.4) % Baso % (Auto) 1.0 (0.2-1.2) % Lymph # (Auto) 1.61 (0.9-3.2) K/mm3 [place] # (Auto) 0.5 (0.1-0.6) K/mm3 Eos # (Auto) 0.1 (0-0.3) K/mm3 Baso # (Auto) 0.1 (0.0-0.1) K/mm3 Abs Immat Gran (auto) 0.01 (0.00-0.031) K/mm3 Absolute Neuts (auto) 2.6 (1.3-6.7) K/mm3 Absolute Nucleated RBC 0.000 (0.0-0.012) K/mm3 Nucleated RBC % 0.0 (0.0-0.2) % Sodium 141 (137-145) mmol/L Potassium 3.3 L (3.4-5.0) mmol/L Chloride 105 (98-107) mmol/L Carbon Dioxide 24 (22-30) mmol/L Anion Gap 12 (4-12) mmol/L BUN 9 D (9-20) mg/dL Creatinine 0.68 L (0.7-1.3) mg/dL Estim Creat Clear Calc Not Reportable Estimated GFR > 60 (59 - ) Glucose 90 (65-110) mg/dL Calcium 9.2 (8.4-10.2) mg/dL Total Bilirubin 0.4 (0.2-1.3) mg/dL AST 23 (17-59) U/L ALT 18 (6-50) U/L Alkaline Phosphatase 56 (38-126) U/L Total Protein 7.0 (6.3-8.2) g/dL Albumin 4.6 (3.5-5.1) g/dL Lipase 62 (23-300) U/L Urine Color Dark yellow (Yellow) Urine Appearance Clear (Clear) Urine pH 5.5 (5.0-9.0) Ur Specific [place] 1.037 H (1.001-1.035) Urine Protein 1+ H (Negative) mg/dL Urine Glucose (UA) Negative (Negative) mg/dL Urine Ketones 3+ H (Negative) mg/dL Ur Blood (Man) Negative (Negative) Urine Nitrate Negative (Negative) Urine Bilirubin Negative (Negative) Urine Urobilinogen 1.0 (<2.0) mg/dL Add Ur Microanalysis Reviewed Leukocyte Esterase Rfl Negative (Negative) TED/UL Urine RBC 3-5 H (0-2) /hpf Urine WBC 0-5 (0-3) /hpf Ur Squamous Epith Cells None seen (Few) /hpf Urine Bacteria None seen /hpf Urine Casts 0-2 Urine Mucus Present /lpf Imaging Data Radiologist's impression: ITS Impressions Hip/Pelvis X-Ray 06/16/24 14:43 IMPRESSION: 1. Moderate osteoarthritis of the hips. Abdomen/Pelvis CT 06/16/24 16:50 IMPRESSION: 1. No etiology for hematuria. Discharge Plan Discharge Clinical Impression: Right groin pain Patient Disposition: Home, Self-Care Condition: Stable Instructions: Groin Pain (ED) Additional Instructions: Return ER if you have fever 100.4? F, you cannot keep down food water, you lose consciousness, or you have additional concerns. Patient Language: Tamazight Prescriptions: No Action magnesium hydroxide [Milk of Magnesia] 400 mg/5 mL Suspension 30 ml PO Q3-4D PRN (Reason: Constipation) Rx Instructions: Give every 3 days of no bowel movement in that time. Fleet Enema See Rx Instructions .ROUTE .COMPLEX Rx Instructions: 1 unit rectally if no results from suppository Creon 6,000-19,000 -30,000 unit capsule,delayed release(DR/EC) 2 cap PO TIDWM sennosides-docusate sodium [Senna with Docusate Sodium] 8.6-50 mg Tablet 2 tab-cap PO BID acetaminophen 650 mg Suppository 650 mg RECTAL Q4H PRN (Reason: Fever Or Pain) bisacodyl 10 mg Suppository 10 mg RECTAL DAILY PRN (Reason: Constipation) duloxetine 30 mg Capsule, Delayed Rel Sprinkle 60 mg PO DAILY polyethylene glycol 3350 17 gram Powder In Packet 17 g PO DAILY famotidine 20 mg Tablet 20 mg PO BID hyoscyamine sulfate 0.125 mg Tablet 0.125 mg PO Q4H PRN (Reason: Secretions) omeprazole 20 mg Capsule,Delayed Release(Dr/Ec) 20 mg PO DAILY promethazine 12.5 mg Tablet 12.5 mg PO Q6H PRN (Reason: Nausea And Vomiting) budesonide-formoterol 160-4.5 mcg/actuation Hfa Aerosol Inhaler 2 puff INHALATION Q12H albuterol sulfate 90 mcg/actuation HFA aerosol inhaler 2 puff INHALATION Q4H PRN (Reason: Shortness Of Breath Or Wheezing) lorazepam 1 mg Tablet 1 mg PO Q4H PRN (Reason: Anxiety) Qty: 6 0RF methadone 5 mg Tablet 7.5 mg PO TID Qty: 7 0RF hydromorphone 1 mg/mL Liquid 2 mg PO Q4H PRN (Reason: Pain) Qty: 473 0RF acetaminophen [Tylenol] 325 mg Capsule 650 mg PO Q6H PRN (Reason: Pain (Scale Score 1-3)) Follow-up/Referrals: Luis Angel,MD Casey [Primary Care Provider] - 1 Week
== END 2024-06-16 19:05 | disposition home or self-care (01) ==
PROVIDERS: Student in an Organized Health Care Education/Training Program; Emergency Provider Emergency Medicine; PCP Internal Medicine
DX: R10.31 Right lower quadrant pain (principal); G40.909 Epilepsy, unspecified, not intractable, without status epilepticus; F41.9 Anxiety disorder, unspecified; M16.0 Bilateral primary osteoarthritis of hip; Z87.891 Personal history of nicotine dependence; Z79.899 Other long term (current) drug therapy
CPT/HCPCS: 36415; 73502; 74176; 80053; 81001; 83690; 85025; 99284; A9270